=== PATIENT | male | born 1965 | race Caucasian/White ===

== ENCOUNTER → 2017-01-03 | Outpatient (CLI) | payer BC ==
[~2017-01-03] MED LIST: ASPI325T32 PO; SULF1TAB35 PO
--- OUTSIDE RECORDS SUMMARY | 2017-01-03 09:44 | XMS REPORT | Continuity of Care Document ---
Author Author [facility] Address Unknown Phone Unavailable Allergies Active Description Code Type Severity Reaction Onset Reported/Identified Relationship to Patient Clinical Status Yes vancomycin Drug Allergy 09/01/2010 Yes vancomycin Drug Allergy N/A N/A 09/01/2010 Medications Problems Date Dx Coded Attending Type Code Diagnosis Diagnosed By 07/28/2008 KLEBER HILARIO DO 682.9 CELLULITIS AND ABSCESS OF UNSPECIFIED SITES 07/28/2008 682.9 CELLULITIS AND ABSCESS OF UNSPECIFIED SITES 07/28/2008 HERBERT PABLO APRN 682.9 CELLULITIS AND ABSCESS OF UNSPECIFIED SITES 07/28/2008 KLEBER HILARIO DO 682.9 CELLULITIS AND ABSCESS OF UNSPECIFIED SITES 07/28/2008 DANIEL AMBRIZ MD 682.9 CELLULITIS AND ABSCESS OF UNSPECIFIED SITES 12/03/2008 KLEBER HILARIO DO 724.5 BACKACHE UNSPECIFIED 12/03/2008 724.5 BACKACHE UNSPECIFIED 12/03/2008 HERBERT PABLO APRN 724.5 BACKACHE UNSPECIFIED 12/03/2008 KLEBER HILARIO DO 724.5 BACKACHE UNSPECIFIED 12/03/2008 DANIEL AMBRIZ MD 724.5 BACKACHE UNSPECIFIED 09/01/2010 KLEBER HILARIO DO V58.31 WOUND DRESSING 09/01/2010 V58.31 WOUND DRESSING 09/01/2010 HERBERT PABLO APRN V58.31 WOUND DRESSING 09/01/2010 KLEBER HILARIO DO V58.31 WOUND DRESSING 09/01/2010 DANIEL AMBRIZ MD V58.31 WOUND DRESSING 01/30/2012 KLEBER HILARIO DO 719.41 SHOULDER JOINT PAIN 01/30/2012 719.41 SHOULDER JOINT PAIN 01/30/2012 HERBERT PABLO APRN 719.41 SHOULDER JOINT PAIN 01/30/2012 KLEBER HILARIO DO 719.41 SHOULDER JOINT PAIN 01/30/2012 DANIEL AMBRIZ MD 719.41 SHOULDER JOINT PAIN 09/21/2012 KLEBER HILARIO DO 782.2 Nodules - Subcutaneous 09/21/2012 782.2 Nodules - Subcutaneous 09/21/2012 HERBERT PABLO APRN 782.2 Nodules - Subcutaneous 09/21/2012 KLEBER HILARIO DO 782.2 Nodules - Subcutaneous 09/21/2012 DANIEL AMBRIZ MD 782.2 Nodules - Subcutaneous 09/22/2012 KLEBER HILARIO DO 706.2 SEBACEOUS CYST 09/22/2012 706.2 SEBACEOUS CYST 09/22/2012 HERBERT PABLO APRN 706.2 SEBACEOUS CYST 09/22/2012 KLEBER HILARIO DO 706.2 SEBACEOUS CYST 09/22/2012 DANIEL AMBRIZ MD 706.2 SEBACEOUS CYST 12/29/2012 466.0 BRONCHITIS, ACUTE 12/29/2012 786.09 DYSPNEA 12/29/2012 HERBERT PABLO APRN 466.0 BRONCHITIS, ACUTE 12/29/2012 HERBERT PABLO APRN R 786.09 DYSPNEA 12/29/2012 KLEBER HILARIO DO 466.0 BRONCHITIS, ACUTE 12/29/2012 KLEBER HILARIO DO K 786.09 DYSPNEA 12/29/2012 DANIEL AMBRIZ MD 466.0 BRONCHITIS, ACUTE 12/29/2012 DANIEL AMBRIZ MD 786.09 DYSPNEA 10/25/2013 HERBERT PABLO APRN R 380.4 CERUMEN IMPACTION 10/25/2013 KLEBER HILARIO DO 380.4 CERUMEN IMPACTION 10/25/2013 DANIEL AMBRIZ MD 380.4 CERUMEN IMPACTION 10/29/2013 KLEBER HILARIO DO 382.9 OTITIS MEDIA 10/29/2013 DANIEL AMBRIZ MD 382.9 OTITIS MEDIA 02/12/2015 DANIEL AMBRIZ MD 401.1 BENIGN ESSENTIAL HYPERTENSION Procedures Code [place] [address] EXCISION BENIGN LESION 2.1-3 cm (specify location in Medcin description) 09/22/2012 38433 CERUMEN REMOVAL 10/29/2013 30431 ROUTINE VENIPUNCTURE 02/12/2015 39536 CMP 02/12/2015 [id number] GFR CALC (RESULT ONLY) 02/12/2015 Results Encounters ACCT No. Visit Date/Time Discharge Status Pt. Type Provider Facility Loc./Unit Complaint [id number] 02/12/2015 15:27:00 02/12/2015 23: 59:59 CLS Outpatient DANIEL AMBRIZ MD [id number] 10/29/2013 11:47:00 10/29/2013 23: 59:59 CLS Outpatient KLEBER HILARIO DO [id number] 10/25/2013 12:12:00 10/25/2013 23: 59:59 CLS Outpatient HERBERT PABLO APRN [id number] 12/29/2012 12:26:00 12/29/2012 23: 59:59 CLS Outpatient [id number] 09/22/2012 12:00:00 09/22/2012 23: 59:59 CLS Outpatient KLEBER HILARIO DO
--- NOTE | 2017-01-03 10:27 | Diagnostic Imaging Report ---
Clinical indication: Patient with pain radiating down the left side of the spine. Patient has rods in the back. Exams: 1: X-ray of the thoracic spine, 3 views including swimmer's view. 2: X-ray of the lumbar spine, 3 views. Comparison: MRI of the lumbar spine performed without and with IV contrast dated 12/12/2008. Findings: Lumbar spine and thoracic spine shows no acute fracture. Posterior fusion rods are seen from T11 through the L1 vertebral body level with bilateral spanning rods and pedicle screws. There is no gross hardware complication such as hardware fracture or osteolysis. Hardware was also noted on the comparison MRI of the lumbar spine. Stable compression fracture deformity of the T12 vertebral body which is similar to the prior MRI of the lumbar spine. There is limited visualization of the upper thoracic spine due to overlapping bone and soft tissue. There are mildly hypertrophic spurs involving the mid to lower thoracic spine. The intervertebral disc heights are well-maintained. There is grade 1 anterolisthesis of L5 on S1 which has progressed in the interim. There is no definite pars defect seen on these images. Again seen small degenerative spurs anteriorly throughout the lumbar spine. There is mild degenerative sclerosis of the sacroiliac joints bilaterally with no gross erosive changes seen. Impression: 1: Thoracic and lumbar spine shows no acute fracture. 2: There is interval development of grade 1 anterolisthesis of L5 on S1. There is no gross pars defect seen. 3: T11 through L1 posterior fusion hardware is seen with no hardware complications. 4: Stable chronic T12 vertebral body compression fracture deformity. 5: Thoracic and lumbar spine degenerative disease. Dictated by: Dictated on workstation # [id number]
== END ==
LOC: RAD 09:41
PROVIDERS: ATTEND Pain Medicine Pain Medicine
DX: M54.5 Low back pain (principal)
CPT/HCPCS: 72072; 72100

== ENCOUNTER 2017-08-28 19:14 | Emergency (ER) | payer BC ==
[~2017-08-28] VITALS: Ht 165.1 cm; Wt 74.8 kg
--- OUTSIDE RECORDS SUMMARY | 2017-08-28 19:20 | XMS REPORT ---
Author Author ZEENAT GARCIA Organization [employer] Address Unknown Phone Unavailable Care Team Providers Care Quartz Cutter Name Role Phone ZEENAT GARCIA CP Unavailable Allergies, Adverse Reactions, Alerts Substance Reaction Event Type sulfa drugs Info Not Available Drug Allergy Vancomycin HCl Info Not Available Drug Allergy Problems Problem Type Condition Code Onset Dates Condition Status Problem Insomnia G47.00 Active Problem Restless legs syndrome G25.81 Active Problem Low back pain M54.5 Active Assessment Restless legs syndrome G25.81 Active Assessment Low back pain M54.5 Active Assessment Insomnia G47.00 Active Medications Medication Code System Code Instructions Start Date End Date Status Dosage Gabapentin [facility] [address]-66 300 MG Orally Once a day at night Dec 23, 2015 1 capsule Amitriptyline HCl [facility] [address]-44 25 MG Orally Once a day Dec 09, 2015 1 tablet Nabumetone [facility] [address]-96 500 MG Orally Twice a day Dec 09, 2015Dec 1 tablet Procedures Procedure Coding System Code Date Office Visit, Est Pt., Level 3 CPT-4 76747 Dec 23, 2015 Vital Signs Date/Time: Dec 23, 2015 Temperature 98.2 F Weight 174.9 lbs Height 65 in BMI 29.10 Index Blood Pressure Diastolic 86 mmHg Blood Pressure Systolic 126 mmHg Cardiac Monitoring Heart Rate 72 bpm Results No Known Results Summary Purpose [employer] Submission
--- OUTSIDE RECORDS SUMMARY | 2017-08-28 19:20 | XMS REPORT ---
Author Author ZEENAT GARCIA Organization [employer] Address Unknown Phone Unavailable Care Team Providers Care Energy Efficiency Specialist Name Role Phone ZEENAT GARCIA CP Unavailable [...] Instructions Start Date End Date Status Dosage Nabumetone [facility] [address]-00 500 MG Orally Twice a day Dec 09, 2015Dec 1 tablet Requip [facility] [address]-21 2 MG Orally Once a day atnight Dec 09, 2015 1 tablet 1 to 3 hours before bedtime Amitriptyline HCl [facility] [address]-57 25 MG Orally Once a day Dec 09, 2015 1 tablet Procedures Procedure Coding System Code Date Office Visit, New Pt., Level 4 CPT-4 42670 Dec 09, 2015 Vital Signs Date/Time: Dec 09, 2015 Temperature 98.6 F Weight 178.3 lbs Height 65 in BMI 29.67 Index Blood Pressure Diastolic 80 mmHg Blood Pressure Systolic 140 mmHg Cardiac Monitoring Heart Rate 72 bpm Results No Known Results Summary Purpose [employer] Submission
--- OUTSIDE RECORDS SUMMARY | 2017-08-28 19:20 | XMS REPORT ---
Author Author ZEENAT GARCIA Organization [employer] Address Unknown Phone Unavailable Care Team Providers Care Senior Laboratory Technician Name Role Phone ZEENAT GARCIA CP Unavailable Allergies, Adverse Reactions, Alerts Substance Reaction Event Type sulfa drugs Info Not Available Drug Allergy Vancomycin HCl Info Not Available Drug Allergy Problems Problem Type Condition Code Onset Dates Condition Status Problem Low back pain M54.5 Active Problem Insomnia G47.00 Active Problem Asthma J45.909 Active Assessment Tendonitis of elbow, right M77.8 Active Problem Restless legs syndrome G25.81 Active Assessment Tinea corporis B35.4 Active Medications Medication Code System Code Instructions Start Date End Date Status Dosage Ketoconazole [facility] [address]-48 2 % Externally twice a day to affected area May 27, 2016 1 application to affected area Naprosyn [facility] [address]-54 500 MG Orally every 12 hrs May 27, 2016 1 tablet as needed Procedures Procedure Coding System Code Date Office Visit, Est Pt., Level 3 CPT-4 15054 May 27, 2016 Vital Signs Date/Time: May 27, 2016 Cardiac Monitoring Heart Rate 86 bpm Weight 168.8 lbs Height 65 in Blood Pressure Diastolic 90 mmHg Blood Pressure Systolic 130 mmHg Results No Known Results Summary Purpose [employer] Submission
--- OUTSIDE RECORDS SUMMARY | 2017-08-28 19:20 | XMS REPORT | Continuity of Care Document ---
Author Author [facility] Address Unknown Phone Unavailable Allergies Active Description [...] 12/29/2012 786.09 DYSPNEA 12/29/2012 HERBERT PABLO APRN R 466.0 BRONCHITIS, ACUTE 12/29/2012 HERBERT PABLO APRN R 786.09 DYSPNEA 12/29/2012 KLEBER HILARIO DO 466.0 BRONCHITIS, ACUTE 12/29/2012 KLEBER HILARIO DO 786.09 DYSPNEA 12/29/2012 DANIEL AMBRIZ MD 466.0 BRONCHITIS, ACUTE 12/29/2012 DANIEL AMBRIZ MD 786.09 DYSPNEA 10/25/2013 HERBERT PABLO APRN 380.4 CERUMEN IMPACTION 10/25/2013 KLEBER HILARIO DO 380.4 CERUMEN IMPACTION 10/25/2013 DANIEL AMBRIZ MD 380.4 CERUMEN IMPACTION 10/29/2013 KLEBER HILARIO DO 382.9 OTITIS MEDIA 10/29/2013 DANIEL AMBRIZ MD 382.9 OTITIS MEDIA 02/12/2015 DANIEL AMBRIZ MD 401.1 BENIGN ESSENTIAL HYPERTENSION Procedures Code [place] [address] EXCISION BENIGN LESION 2.1-3 cm (specify location in Medcin description) 09/22/2012 11587 CERUMEN REMOVAL 10/29/2013 49374 ROUTINE VENIPUNCTURE 02/12/2015 15776 CMP 02/12/2015 [id number] GFR CALC (RESULT ONLY) 02/12/2015 Results Encounters ACCT No. Visit Date/Time Discharge Status Pt. Type Provider Facility Loc./Unit Complaint [id number] 02/12/2015 15:27:00 02/12/2015 23: 59:59 CLS Outpatient DANIEL AMBRIZ MD [id number] 10/29/2013 11:47:00 10/29/2013 23: 59:59 CLS Outpatient KLEBER HILARIO DO [id number] 10/25/2013 12:12:00 10/25/2013 23: 59:59 CLS Outpatient HERBERT PABLO APRN [id number] 12/29/2012 12:26:00 12/29/2012 23: 59:59 CLS Outpatient [id number] 09/22/2012 12:00:00 09/22/2012 23: 59:59 CLS Outpatient KLEBER HILARIO DO
[2017-08-28] MEDS ORDERED: FAMOTIDINE 20 MG (PEPCID) TABLET PO STA (19:35)
--- NOTE | 2017-08-28 19:43 | ED GI ---
General Stated Complaint: LOW BACK PAIN,BLOOD IN STOOL Source of Information: Patient, Family Exam Limitations: No Limitations History of Present Illness Time Seen By Provider: 19:34 Initial Comments Patient presents to ER by private conveyance with a chief complaint that he has had bright red blood per rectum starting this morning that was copious watery without stool. He says throughout the day started getting darker. He says he was started on diclofenac for his back pain in addition to the baclofen that his pain doctor had been prescribing him back in February of this year. Last week or so however he says he's had to use it 1 or 2 times a day which is more than what he typically takes it. He does not have a history of GERD or acid reflux. He has had no chest pain or shortness of breath. He says he has had a heart attack in the past 12 or 13 years ago and was told to take aspirin after that but has not been consistent with using aspirin. The only 2 medications he is currently prescribed is the baclofen and NSAID. He says he has no dysuria or discharge. No cough. He has a history of years ago having had broken his back and some kind of industrial accident and had to have pins placed. Since then his had his pain controlled. Much with NSAIDs and muscle relaxants. He still occasionally takes some ibuprofen in addition to his diclofenac. He has never had a colonoscopy. Patient has no family history of colon cancer or polyps but his mother had some lesions that she had to have surgery on her stomach for. She also had what sounds like ischemic colitis by his description Allergies and Home Medications Allergies Coded Allergies: Sulfa (Sulfonamide Antibiotics) (Verified Allergy, Unknown, 06/04/16) vancomycin (Unverified Allergy, Unknown, 06/04/16) wasp venom (Unverified Allergy, Unknown, 06/04/16) Home Medications No Active Prescriptions or Reported Meds Review of Systems Constitutional: No chills, No diaphoresis, No fever, No malaise EENTM: No Eye Pain, No Ear Pain Respiratory: Denies Cough, Denies Shortness of Air Cardiovascular: Denies Chest Pain, Denies Irregular Heart Rate, Denies Lightheadedness, Denies Palpitations, Denies Syncope Gastrointestinal: See HPI, Denies Constipated, Denies Nausea, Rectal Bleeding, Denies Vomiting Genitourinary: Denies Burning, Denies Discharge Musculoskeletal: see HPI, back pain, No joint pain Skin: No pruritus, No rash Psychiatric/Neurological: Denies Headache, Denies Numbness, Denies Paresthesia Endocrine: Denies Unexplained Weight Gain, Denies Unexplaned Weight Loss Hematologic/Lymphatic: Denies Easy Bleeding, Denies Easy Bruising Past Lyixfrz-Tbeqih-Suqqfk Hx Patient Social History Alcohol Use: Occasionally Uses Alcohol Beverage of Choice: Beer (12 pack last 2 weeks) Recreational Drug Use: No Type Used: Smokeless Tobacco (2-3 days per can) Recent Foreign Travel: No Contact w/Someone Who Travel: No Physical Exam Vital Signs VS - Last 72 Hours, by Label 08/28/17 19:44 Temp 98.1 Pulse 71 Resp 20 B/P (MAP) 157/104 Pulse Ox 96 Capillary Refill : General Appearance: WD/WN, mild distress (from his back pain) HEENT: PERRL/EOMI, pharynx normal Neck: non-tender, full range of motion, normal inspection Respiratory: chest non-tender, lungs clear, normal breath sounds Cardiovascular: normal peripheral pulses, regular rate, rhythm, no edema Peripheral Pulses: 2+ Radial Pulses (R), 2+ Radial Pulses (L) Gastrointestinal: normal bowel sounds, non tender, soft, no organomegaly Extremities: non-tender, normal inspection, normal capillary refill Back: normal inspection, no CVA tenderness, no vertebral tenderness Neurologic/Psychiatric: alert, oriented x 3 Skin: normal color, warm/dry Focused Exam Evaluation Lactate Level Laboratory Tests 08/28/17 20:13: Lactic Acid Level 1.63 Lactic Acid Level Laboratory Tests Test 08/28/17 20:13 Lactic Acid Level 1.63 MMOL/L (0.50-2.00) Progress/Results/Core Measures Results/Orders Lab Results Laboratory Tests Test 08/28/17 19:37 08/28/17 20:06 08/28/17 20:13 Range/Units White Blood Count 7.2 4.3-11.0 10^3/uL Red Blood Count 4.20 L 4.35-5.85 10^6/uL Hemoglobin 13.9 13.3-17.7 G/DL Hematocrit 40 40-54 % Mean Corpuscular Volume 95 80-99 FL Mean Corpuscular Hemoglobin 33 25-34 PG Mean Corpuscular Hemoglobin Concent 35 32-36 G/DL Red Cell Distribution Width 12.3 10.0-14.5 % Platelet Count 203 130-400 10^3/uL Mean Platelet Volume 10.7 H 7.4-10.4 FL Neutrophils (%) (Auto) 59 42-75 % Lymphocytes (%) (Auto) 20 12-44 % Monocytes (%) (Auto) 9 0-12 % Eosinophils (%) (Auto) 11 H 0-10 % Basophils (%) (Auto) 1 0-10 % Neutrophils # (Auto) 4.3 1.8-7.8 X 10^3 Lymphocytes # (Auto) 1.5 1.0-4.0 X 10^3 Monocytes # (Auto) 0.7 0.0-1.0 X 10^3 Eosinophils # (Auto) 0.8 H 0.0-0.3 10^3/uL Basophils # (Auto) 0.1 0.0-0.1 10^3/uL Prothrombin Time 13.9 12.2-14.7 SEC INR Comment 1.1 0.8-1.4 Activated Partial Thromboplast Time 32 24-35 SEC Sodium Level 140 135-145 MMOL/L Potassium Level 3.8 3.6-5.0 MMOL/L Chloride Level 108 H 98-107 MMOL/L Carbon Dioxide Level 20 L 21-32 MMOL/L Anion Gap 12 5-14 MMOL/L Blood Urea Nitrogen 12 7-18 MG/DL Creatinine 0.92 0.60-1.30 MG/DL Estimat Glomerular Filtration Rate > 60 BUN/Creatinine Ratio 13 Glucose Level 197 H 70-105 MG/DL Calcium Level 8.7 8.5-10.1 MG/DL Total Bilirubin 0.5 0.1-1.0 MG/DL Aspartate Amino Transf (AST/SGOT) 27 5-34 U/L Alanine Aminotransferase (ALT/SGPT) 29 0-55 U/L Alkaline Phosphatase 55 40-136 U/L Total Protein 7.0 6.4-8.2 GM/DL Albumin 4.0 3.2-4.5 GM/DL Urine Color YELLOW Urine Clarity CLEAR Urine pH 5 5-9 Urine Specific [place] 1.015 L 1.016-1.022 Urine Protein NEGATIVE NEGATIVE Urine Glucose (UA) NEGATIVE NEGATIVE Urine Ketones NEGATIVE NEGATIVE Urine Nitrite NEGATIVE NEGATIVE Urine Bilirubin NEGATIVE NEGATIVE Urine Urobilinogen NORMAL NORMAL MG/DL Urine Leukocyte Esterase NEGATIVE NEGATIVE Urine RBC (Auto) NEGATIVE NEGATIVE Urine RBC NONE /HPF Urine WBC NONE /HPF Urine Squamous Epithelial Cells RARE /HPF Urine Crystals NONE /LPF Urine Bacteria NONE /HPF Urine Casts NONE /LPF Urine Mucus NEGATIVE /LPF Urine Culture Indicated NO Lactic Acid Level 1.63 0.50-2.00 MMOL/L Urine Opiates Screen POSITIVE H NEGATIVE Urine Oxycodone Screen NEGATIVE NEGATIVE Urine Methadone Screen NEGATIVE NEGATIVE Urine Propoxyphene Screen NEGATIVE NEGATIVE Urine Barbiturates Screen NEGATIVE NEGATIVE Ur Tricyclic Antidepressants Screen NEGATIVE NEGATIVE Urine Phencyclidine Screen NEGATIVE NEGATIVE Urine Amphetamines Screen NEGATIVE NEGATIVE Urine Methamphetamines Screen NEGATIVE NEGATIVE Urine Benzodiazepines Screen POSITIVE H NEGATIVE Urine Cocaine Screen NEGATIVE NEGATIVE Urine Cannabinoids Screen NEGATIVE NEGATIVE My Orders Orders - SIMONE SANDERS Ua Culture If Indicated (08/28/17 19:20) Cbc With Automated Diff (08/28/17 19:35) Comprehensive Metabolic Panel (08/28/17 19:35) Drug Screen Stat (Urine) (08/28/17 19:35) Protime With Inr (08/28/17 19:35) Partial Thromboplastin Time (08/28/17 19:35) Type And Screen (08/28/17 19:35) Famotidine Tablet (Pepcid Tablet) (08/28/17 19:35) Saline Lock/Iv-Start (08/28/17 19:35) Fentanyl Injection (Sublimaze Injection (08/28/17 19:45) Lactic Acid Analyzer (08/28/17 20:13) Occult Blood Stool (08/28/17 20:23) Medications Given in ED Current Medications Medications Dose Ordered Sig/Tia Route Start Time Stop Time Status Last Admin Dose Admin Fentanyl Citrate 25 mcg ONCE ONCE IVP 08/28/17 19:45 08/28/17 19:46 DC 08/28/17 20:00 25 MCG Vital Signs/I&O Vital Sign - Last 12Hours 08/28/17 19:44 Temp 98.1 Pulse 71 Resp 20 B/P (MAP) 157/104 Pulse Ox 96 Progress Note : Time: 20:16 Progress Note Ischemic colitis seems very unlikely as he has a very mildly tender abdomen. Most of his pain since be centered in the back and is reproducible. Going to obtain a lactate anyways. Consults Consults : Consulting Physician: GRAYSON LANGE MD Consults Notes Discussed case and findings and lab with the surgeon and he will contact the patient tomorrow morning about setting up an endoscopy sometime this week. Departure Impression Impression: Primary Impression: BRBPR (bright red blood per rectum) Disposition: 01 HOME, SELF-CARE Condition: Stable Departure-Patient Inst. Decision time for Depature: 21:15 Referrals: KLEBER HILARIO DO (PCP) Primary Care Physician ZEENAT GARCIA (Family) Primary Care Physician Patient Instructions: Bloody Stools, Adult (DC) Add. Discharge Instructions: Expect a phone call from the general surgeon Dr. Lange at [phone] by Monday. If you have not heard from him then you may call his clinic. The next step will be endoscopy. Keep your follow-up appointment with your primary care physician to discuss the findings as well as management of your back pain. Recommend you do not use any NSAID such as echo for neck, ketorolac, Naprosyn, ibuprofen, Aleve. Tylenol is acceptable. Get a back brace and use creams such as icy hot or Biofreeze as well as massage, heat, ice. Scripts No Active Prescriptions or Reported Meds Copy Copies To 1: GRAYSON LANGE MD Copies To 2: KLEBER HILARIO TITUS J Aug 28, 2017 19:43
[2017-08-28] MEDS ORDERED: fentaNYL INJECTION 100 MCG/2 ML AMP IVP ONE (19:45)
[2017-08-28 19:50] LABS: BASOPHILS # (AUTO) 0.1 10^3/uL (0.0-0.1); BASOPHILS % (AUTO) 1 % (0-10); EOSINOPHILS # (AUTO) 0.8 10^3/uL (0.0-0.3); EOSINOPHILS % (AUTO) 11 % (0-10); LYMPHOCYTES # (AUTO) 1.5 X 10^3 (1.0-4.0); LYMPHOCYTES % (AUTO) 20 % (12-44); MEAN CORPUSCULAR HEMOGLOBIN 33 PG (25-34); MEAN CORPUSCULAR HGB CONC 35 G/DL (32-36); MEAN CORPUSCULAR VOLUME 95 FL (80-99); MEAN PLATELET VOLUME 10.7 FL (7.4-10.4); MONOCYTES # (AUTO) 0.7 X 10^3 (0.0-1.0); MONOCYTES % (AUTO) 9 % (0-12); NEUTROPHILS # (AUTO) 4.3 X 10^3 (1.8-7.8); NEUTROPHILS % (AUTO) 59 % (42-75); PLATELET COUNT 203 10^3/uL (130-400); RED CELL DISTRIBUTION WIDTH 12.3 % (10.0-14.5); WHITE BLOOD COUNT 7.2 10^3/uL (4.3-11.0)
[2017-08-28 20:03] LABS: INR 1.1 (0.8-1.4); PROTHROMBIN TIME PATIENT 13.9 SEC (12.2-14.7)
[2017-08-28 20:14] LABS: BILIRUBIN,URINE NEGATIVE (NEGATIVE); KETONES,URINE NEGATIVE (NEGATIVE); LEUKOCYTE ESTERASE ,URINE NEGATIVE (NEGATIVE); NITRITE,URINE NEGATIVE (NEGATIVE); PH,URINE 5 (5-9); PROTEIN,URINE NEGATIVE (NEGATIVE); UROBILINOGEN,URINE NORMAL (NORMAL)
[2017-08-28 20:20] LABS: ALANINE AMINOTRANSFERASE 29 U/L (0-55); ANION GAP 12 MMOL/L (5-14); ASPARTATE AMINO TRANSFERASE 27 U/L (5-34); BILIRUBIN,TOTAL 0.5 MG/DL (0.1-1.0); BLOOD UREA NITROGEN 12 MG/DL (7-18); BUN/CREATININE RATIO 13; CALCIUM 8.7 MG/DL (8.5-10.1); CARBON DIOXIDE 20 MMOL/L (21-32); CHLORIDE 108 MMOL/L (98-107); CREATININE SERUM 0.92 MG/DL (0.60-1.30); GFR ESTIMATED > 60; GLUCOSE 197 MG/DL (70-105); POTASSIUM 3.8 MMOL/L (3.6-5.0); SODIUM 140 MMOL/L (135-145)
[2017-08-28 20:22] LABS: SQUAMOUS EPITHELIAL CELL,UR RARE /HPF
[2017-08-28 21:23] VITALS: BP 142/97
== END 2017-08-28 21:23 | disposition home or self-care (01) ==
LOC: EDUNIT# 19:14 → ER 19:16
DX: K62.5 Hemorrhage of anus and rectum (principal); Z87.828 Personal history of other (healed) physical injury and trauma
CPT/HCPCS: 36415; 80053; 80306; 81000; 83605; 85025; 85610; 85730; 86850; 86900; 86901

== ENCOUNTER 2017-09-21 05:37 | Outpatient (CLI) | payer BC ==
[~2017-09-21] VITALS: Ht 165.1 cm; Wt 74.8 kg
== END 2017-09-21 13:51 ==
LOC: PREOP 05:37
PROVIDERS: ATTEND Surgery
DX: Z01.818 Encounter for other preprocedural examination (principal); K62.5 Hemorrhage of anus and rectum

== ENCOUNTER 2017-12-22 16:26 | Emergency (ER) | payer BC, OTHER ==
[~2017-12-22] VITALS: Ht 165.1 cm; Wt 74.8 kg
--- OUTSIDE RECORDS SUMMARY | 2017-12-22 16:36 | XMS REPORT | Continuity of Care Document ---
Author Author [facility] Address Unknown Phone Unavailable Allergies Active Description Code Type Severity Reaction Onset Reported/Identified Relationship to Patient Clinical Status Yes vancomycin Drug Allergy 09/01/2010 Yes vancomycin Drug Allergy N/A N/A 09/01/2010 Medications There is no data. Problems Date Dx Coded Attending Type Code [...] DO 719.41 SHOULDER JOINT PAIN 01/30/2012 DANIEL ABMRIZ MD 719.41 SHOULDER JOINT PAIN 09/21/2012 KLEBER HILARIO DO K 782.2 Nodules - Subcutaneous 09/21/2012 782.2 Nodules - Subcutaneous 09/21/2012 HERBERT PABLO APRN R 782.2 Nodules - Subcutaneous 09/21/2012 KLEBER HILARIO DO K 782.2 Nodules - Subcutaneous 09/21/2012 DANIEL AMBRIZ MD 782.2 Nodules - Subcutaneous 09/22/2012 KLEBER HILARIO DO K 706.2 SEBACEOUS CYST 09/22/2012 706.2 SEBACEOUS CYST 09/22/2012 HERBERT PABLO APRN R 706.2 SEBACEOUS CYST 09/22/2012 KLEBER HILARIO DO K 706.2 SEBACEOUS CYST 09/22/2012 DANIEL AMBRIZ MD 706.2 SEBACEOUS CYST 12/29/2012 466.0 BRONCHITIS, ACUTE 12/29/2012 786.09 DYSPNEA 12/29/2012 HERBERT PABLO APRN R 466.0 BRONCHITIS, ACUTE 12/29/2012 HERBERT PABLO APRN R 786.09 DYSPNEA 12/29/2012 KLEBER HILARIO DO K 466.0 BRONCHITIS, ACUTE 12/29/2012 KLEBER HILARIO DO [...] Procedures Code Description [place] [address] EXCISION BENIGN LESION 2.1- 3 cm (specify location in Medcin description) 09/22/2012 33140 CERUMEN REMOVAL 10/29/2013 63528 ROUTINE VENIPUNCTURE 02/12/2015 70906 CMP 02/12/2015 [id number] GFR CALC (RESULT ONLY) 02/12/2015 Results There is no data. Encounters ACCT No. Visit Date/Time Discharge Status Pt. Type Provider Facility Loc./Unit Complaint [id number] 02/12/2015 15:27:00 02/12/2015 23:59:59 CLS Outpatient DANIEL AMBRIZ MD [id number] 10/29/2013 11:47:00 10/29/2013 23:59:59 CLS Outpatient KLEBER HILARIO DO [id number] 10/25/2013 12:12:00 10/25/2013 23:59:59 CLS Outpatient HERBERT PABLO APRN [id number] 12/29/2012 12:26:00 12/29/2012 23:59:59 CLS Outpatient [id number] 09/22/2012 12:00:00 09/22/2012 23:59:59 CLS Outpatient KLEBER HILARIO DO
[2017-12-22 16:56] LABS: BASOPHILS % (AUTO) 0 % (0-10); EOSINOPHILS # (AUTO) 0.5 10^3/uL (0.0-0.3); EOSINOPHILS % (AUTO) 7 % (0-10); HEMATOCRIT 41 % (40-54); HEMOGLOBIN 14.8 G/DL (13.3-17.7); LYMPHOCYTES # (AUTO) 1.8 X 10^3 (1.0-4.0); LYMPHOCYTES % (AUTO) 26 % (12-44); MEAN CORPUSCULAR HEMOGLOBIN 34 PG (25-34); MEAN CORPUSCULAR HGB CONC 36 G/DL (32-36); MEAN CORPUSCULAR VOLUME 93 FL (80-99); MEAN PLATELET VOLUME 10.7 FL (7.4-10.4); MONOCYTES # (AUTO) 0.4 X 10^3 (0.0-1.0); MONOCYTES % (AUTO) 6 % (0-12); NEUTROPHILS # (AUTO) 4.2 X 10^3 (1.8-7.8); NEUTROPHILS % (AUTO) 61 % (42-75); PLATELET COUNT 230 10^3/uL (130-400); RED BLOOD COUNT 4.36 10^6/uL (4.35-5.85); RED CELL DISTRIBUTION WIDTH 12.3 % (10.0-14.5); WHITE BLOOD COUNT 6.8 10^3/uL (4.3-11.0)
[2017-12-22 16:59] LABS: INR 1.1 (0.8-1.4)
[2017-12-22] MEDS ORDERED: NITROGLYCERIN 0.4 MG SL TABS BTL 25'S SL PRN (17:00)
[2017-12-22] MEDS ORDERED: ASPIRIN 81 MG CHEW (CHILDREN'S ASA) PO ONE (17:00)
[2017-12-22 17:07] LABS: ALANINE AMINOTRANSFERASE 19 U/L (0-55); ALBUMIN 4.4 GM/DL (3.2-4.5); ALKALINE PHOSPHATASE 57 U/L (40-136); BILIRUBIN,TOTAL 1.1 MG/DL (0.1-1.0); BUN/CREATININE RATIO 11; CARBON DIOXIDE 24 MMOL/L (21-32); CHLORIDE 105 MMOL/L (98-107); CREATININE SERUM 0.92 MG/DL (0.60-1.30); GFR ESTIMATED > 60; GLUCOSE 158 MG/DL (70-105); MAGNESIUM 2.1 MG/DL (1.8-2.4); POTASSIUM 3.6 MMOL/L (3.6-5.0); SODIUM 140 MMOL/L (135-145); TOTAL PROTEIN 7.5 GM/DL (6.4-8.2)
[2017-12-22 17:14] LABS: MYOGLOBIN SERUM 43.1 NG/ML (10.0-92.0)
--- NOTE | 2017-12-22 17:15 | Diagnostic Imaging Report ---
INDICATION: Chest pain and left upper extremity paresthesia. EXAMINATION: Portable AP upright view of the chest was obtained. COMPARISON: No previous study is available for comparison at this time. FINDINGS: Heart size and pulmonary vasculature are within normal limits, and the lungs are clear, bilaterally. IMPRESSION: Unremarkable chest. Dictated by: Dictated on workstation # [id number]
--- NOTE | 2017-12-22 17:57 | Diagnostic Imaging Report ---
PROCEDURE: CT head and CT cervical spine without contrast. TECHNIQUE: Multiple contiguous axial images were obtained through the brain and cervical spine without the use of intravenous contrast. Sagittal and coronal reformations through the cervical spine were then performed. INDICATION: CT HEAD: Multiple contiguous axial CT images of the head were obtained. FINDINGS: Ventricles and sulci are within normal limits for size. There is no intracranial hemorrhage identified. There is no abnormal mass effect or shift of midline structures. IMPRESSION: Unremarkable CT of the head. CT CERVICAL SPINE: Multiple contiguous axial CT images of the cervical spine were obtained with sagittal and coronal reformatted images produced. FINDINGS: The cervical curvature and alignment are within normal limits. The vertebral body heights and disc spaces are maintained without evidence of fracture or subluxation. There is no paraspinous hematoma. Endplate spurring is most pronounced at C5-6 and C6-7 with mild to moderate bony encroachment upon the spinal canal. IMPRESSION: No CT evidence of acute cervical spinal abnormality. Dictated by: Dictated on workstation # [id number]
--- NOTE | 2017-12-22 18:20 | ED Chest Pain ---
General Chief Complaint: Chest Pain Stated Complaint: CP/L ARM NUMBNESS Nursing Triage Note: PATIENT STATES THAT HE STARTED HAVING PAIN IN HIS CHEST AND DOWN HIS LEFT ARM YESTERDAY EVENING. IT FEELS LIKE "NEEDLES" IN HIS ARM. AND LIKE HE WAS "PUNCHED " IN THE CHEST. hE STATES HIS ARM FEELS HEAVY. Nursing Sepsis Screen: No Definite Risk Source: patient Exam Limitations: no limitations (CHAD CHOU MD) History of Present Illness Date Seen by Provider: Dec 22, 2017 Time Seen by Provider: 16:40 Initial Comments This 52-year-old gentleman presents to the emergency room with complaints of left sided chest pain and pain and paresthesia in the left upper extremity. Symptoms started yesterday when he was at work. Symptoms seem to be worse with activity. He describes the pain in his chest as a soreness as though he were punched in the chest. 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 Those did resolve. He took ibuprofen which was not particularly helpful. Patient has some chronic back pain and sometimes stumbles because of prior trauma. He fell 15 feet and struck his back on a ladder and required surgery for vertebral fractures. He does have hardware in his back. Patient has no known history of coronary artery disease. He does have hypertension. He reports pain at its worst was 8/10. It is now about 2/10. Patient reports he has a remote history of "heart attack" when he had heatstroke in the [place], [place] in 2001. (CHAD CHOU MD) Allergies and Home Medications Allergies Coded Allergies: Sulfa (Sulfonamide Antibiotics) (Verified Allergy, Unknown, 06/04/16) vancomycin (Unverified Allergy, Unknown, 06/04/16) venom-wasp (Unverified Allergy, Unknown, 06/04/16) Home Medications Prednisone 20 Mg Tab, 20 MG PO DAILY, #4 Prescribed by: CHAD AMYER on 12/22/17 3462 Review of Systems Constitutional: no symptoms reported EENTM: No Symptoms Reported Respiratory: No Symptoms Reported Cardiovascular: See HPI Gastrointestinal: No Symptoms Reported Genitourinary: No Symptoms Reported Musculoskeletal: see HPI Skin: no symptoms reported Psychiatric/Neurological: See HPI Endocrine: No Symptoms Reported (CHAD CHOU MD) Past Ujoxlpg-Tscbwp-Uxyzpa Hx Patient Social History Alcohol Use: Rarely Uses Alcohol Beverage of Choice: Beer Recreational Drug Use: No Smoking Status: Former Smoker Type Used: Smokeless Tobacco 2nd Hand Smoke Exposure: No Recent Foreign Travel: No Contact w/Someone Who Travel: No Recent Infectious Disease Expo: No Recent Hopitalizations: No (CHAD CHOU MD) Seasonal Allergies Seasonal Allergies: No (CHAD CHOU MD) Surgeries History of Surgeries: Yes Surgeries: Ear Surgery, Orthopedic (back surgery with hardware due to trauma) (CHAD CHOU MD) Respiratory History of Respiratory Disorde: Yes Respiratory Disorders: Asthma, Chronic Bronchitis (CHAD CHOU MD) Cardiovascular History of Cardiac Disorders: Yes Cardiac Disorders: Heart Attack (states "heart attack" during heatst2001) , Hypertension (CHAD CHOU MD) Neurological History of Neurological Disord: No (CHAD CHOU MD) Reproductive System Hx Reproductive Disorders: No (CHAD CHOU MD) Genitourinary History of Genitourinary Disor: No (CHAD CHOU MD) Gastrointestinal History of Gastrointestinal Di: No (CHAD CHOU MD) Musculoskeletal History of Musculoskeletal Dis: Yes Musculoskeletal Disorders: Chronic Back Pain (CHAD CHOU MD) Endocrine History of Endocrine Disorders: No (CHAD CHOU MD) HEENT History of HEENT Disorders: No (CHAD CHOU MD) Cancer History of Cancer: No (CHAD CHOU MD) Psychosocial History of Psychiatric Problem: No (CHAD CHOU MD) Integumentary History of Skin or Integumenta: No (CHAD CHOU MD) Blood Transfusions History of Blood Disorders: No (CHAD CHOU MD) Family Medical History Significant Family History: Cancer, Diabetes, Hypertension (CHAD CHOU MD) Physical Exam Vital Signs Vital Sign - Last 12Hours 12/22/17 12/22/17 16:33 16:35 Temp 98.2 Pulse 81 Resp 20 B/P (MAP) 163/107 (125) Pulse Ox 97 O2 Delivery Room Air O2 Flow Rate 2.0 (SIMONE BAHENA) Vital Signs Capillary Refill : Less Than 3 Seconds (CHAD CHOU MD) General Appearance: No Apparent Distress, WD/WN HEENT: PERRL/EOMI, Normal ENT Inspection, Pharynx Normal Neck: Normal Inspection Respiratory: Chest Non Tender, Lungs Clear, Normal Breath Sounds, No Accessory Muscle Use, No Respiratory Distress Cardiovascular: Regular Rate, Rhythm, No Edema, No Murmur, Normal Peripheral Pulses Gastrointestinal: Normal Bowel Sounds, Non Tender, Soft Extremity: Normal Capillary Refill, Normal Inspection, Non Tender, No Pedal Edema Neurologic/Psychiatric: Alert, Oriented x3, Normal 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, 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0-14.5 % Platelet Count 230 130-400 10^3/uL Mean Platelet Volume 10.7 H 7.4-10.4 FL Neutrophils (%) (Auto) 61 42-75 % Lymphocytes (%) (Auto) 26 12-44 % Monocytes (%) (Auto) 6 0-12 % Eosinophils (%) (Auto) 7 0-10 % Basophils (%) (Auto) 0 0-10 % Neutrophils # (Auto) 4.2 1.8-7.8 X 10^3 Lymphocytes # (Auto) 1.8 1.0-4.0 X 10^3 Monocytes # (Auto) 0.4 0.0-1.0 X 10^3 Eosinophils # (Auto) 0.5 H 0.0-0.3 10^3/uL Basophils # (Auto) 0.0 0.0-0.1 10^3/uL Prothrombin Time 14.0 12.2-14.7 SEC INR Comment 1.1 0.8-1.4 Activated Partial Thromboplast Time 33 24-35 SEC Sodium Level 140 135-145 MMOL/L Potassium Level 3.6 3.6-5.0 MMOL/L Chloride Level 105 98-107 MMOL/L Carbon Dioxide Level 24 21-32 MMOL/L Anion Gap 11 5-14 MMOL/L Blood Urea Nitrogen 10 7-18 MG/DL Creatinine 0.92 0.60-1.30 MG/DL Estimat Glomerular Filtration Rate > 60 BUN/Creatinine Ratio 11 Glucose Level 158 H 70-105 MG/DL Calcium Level 9.0 8.5-10.1 MG/DL Magnesium Level 2.1 1.8-2.4 MG/DL Total Bilirubin 1.1 H 0.1-1.0 MG/DL Aspartate Amino Transf (AST/SGOT) 23 5-34 U/L Alanine Aminotransferase (ALT/SGPT) 19 0-55 U/L Alkaline Phosphatase 57 40-136 U/L Myoglobin 43.1 10.0-92.0 NG/ML Troponin I < 0.30 < 0.30 <0.30 NG/ML Total Protein 7.5 6.4-8.2 GM/DL Albumin 4.4 3.2-4.5 GM/DL (SIMONE BAHENA) Medications Given in ED Current Medications Medications Dose Ordered Sig/Tia Route Start Time Stop Time Status Last Admin Dose Admin Aspirin 324 mg ONCE ONCE PO 12/22/17 17:00 12/22/17 17:01 DC 12/22/17 16:56 324 MG Ketorolac Tromethamine 30 mg ONCE ONCE IVP 12/22/17 18:30 12/22/17 18:31 DC 12/22/17 18:38 30 MG Nitroglycerin 0.4 mg UD PRN SL 12/22/17 17:00 12/22/17 16:58 0.4 MG (SIMONE BAHENA) Vital Signs/I&O Vital Sign - Last 12Hours 12/22/17 12/22/17 12/22/17 16:33 16:35 17:00 Temp 98.2 Pulse 81 Resp 20 B/P (MAP) 163/107 (125) Pulse Ox 97 100 O2 Delivery Room Air Nasal Cannula Nasal Cannula O2 Flow Rate 2.0 2.00 (SIMONE BAHENA) Blood Pressure Mean: 125 Progress Note : Time: 18:39 Progress Note Patient was given aspirin. Cardiac workup is negative to this point. CT of the head and C-spine was ordered to further investigate the radicular symptoms in the left upper extremity. These imaging studies showed some spurring with encroachment. This could be contributing to the left upper extremity symptoms and possibly even the left lateral chest pain. Patient is being given Toradol. If this is ineffective, I suggested Dr. Bahena try gabapentin. Disposition was discussed with the patient who is reluctant to be admitted. Case was reviewed with Dr. Mckenzie requested that the patient at least stay for a 3 hour rule out. Patient is agreeable and a troponin and EKG were ordered for 19:40. Care of the patient is being transferred to Dr. Bahena at this time. (CHAD CHOU MD) Progress Note : Time: 18:39 Progress Note Discussed the case at length with Dr. Mayer. We discussed the likely etiology being a radiculopathy given his CT imaging. His pain is now about a 2 out of 10 red give him some NSAIDs and see if it doesn't improve and repeat a delta T at 1940. He has outpatient follow-up with Dr. Mckenzie, cardiology. (SIMONE BAHENA) ECG Initial ECG Impression Date: Dec 22, 2017 Initial ECG Impression Time: 16:50 Initial ECG Rate: 74 Initial ECG Rhythm: Normal Sinus Initial ECG Intervals: Normal Initial ECG Impression: Normal Comment Normal sinus rhythm with no ST elevation or depression. No abnormal intervals or axis deviation. (CHAD CHOU MD) EKG : EKG Time: 20:43 Rate: 49 Rhythm: S.Yariel Intervals: MT (176) ECG Comparisson: Changed (yariel) ECG Impression: Sinus Bradycardia Comment No T-wave elevation or depression noted. (SIMONE BAHENA) Diagnostic Imaging Diagonstic Imaging: Xray Plain Films/CT/US/NM/MRI: chest Comments CT head and cervical spine viewed by me and report reviewed. See report below: NAME: GERARDO KLEIN REC#: [id number] PT STATUS: REG ER : 1965 PHYSICIAN: CHAD CHOU MD ADMIT DATE: 12/22/17/ER Signed Date of Exam: 12/22/17 CT HEAD/CERVICAL SPINE WO PROCEDURE: CT head and CT cervical spine without contrast. TECHNIQUE: Multiple contiguous axial images were obtained through the brain and cervical spine without the use of intravenous contrast. Sagittal and coronal reformations through the cervical spine were then performed. INDICATION: CT HEAD: Multiple contiguous axial CT images of the head were obtained. FINDINGS: Ventricles and sulci are within normal limits for size. There is no intracranial hemorrhage identified. There is no abnormal mass effect or shift of midline structures. IMPRESSION: Unremarkable CT of the head. CT CERVICAL SPINE: Multiple contiguous axial CT images of the cervical spine were obtained with sagittal and coronal reformatted images produced. FINDINGS: The cervical curvature and alignment are within normal limits. The vertebral body heights and disc spaces are maintained without evidence of fracture or subluxation. There is no paraspinous hematoma. Endplate spurring is most pronounced at C5-6 and C6-7 with mild to moderate bony encroachment upon the spinal canal. IMPRESSION: No CT evidence of acute cervical spinal abnormality. Dictated by: Dictated on workstation # [id number] Dict: 12/22/17 1749 Trans: 12/22/17 1800 Interpreted by: SAVI MENSAH MD Electronically signed by: SAVI MENSAH MD 12/22/17 1800 Diagonstic Imaging: Xray Plain Films/CT/US/NM/MRI: chest Comments Chest x-ray viewed by me and report reviewed. See report below: NAME: GERARDO KLEIN [facility] REC#: [id number] PT STATUS: REG ER : 1965 PHYSICIAN: CHAD CHOU MD ADMIT DATE: 12/22/17/ER Signed Date of Exam: 12/22/17 CHEST 1 VIEW, AP/PA ONLY INDICATION: Chest pain and left upper extremity paresthesia. EXAMINATION: Portable AP upright view of the chest was obtained. COMPARISON: No previous study is available for comparison at this time. FINDINGS: Heart size and pulmonary vasculature are within normal limits, and the lungs are clear, bilaterally. IMPRESSION: Unremarkable chest. Dictated by: Dictated on workstation # [id number] Dict: 12/22/171712 Trans: 12/22/171751 Interpreted by: SAVI MENSAH MD Electronically signed by: SAVI MENSAH MD 12/22/171751 (CHAD CHOU MD) Diagonstic Imaging: Xray (SIMONE BAHENA) Transfer of Care Transfer of Care Time: 18:39 Care transferred to: Josef (SIMONE BAHENA) Departure Impression Impression: Primary Impression: Cervical radiculopathy Additional Impressions: Paresthesia of left upper extremity Left sided chest pain Disposition: HOME, SELF-CARE Condition: Improved Departure-Patient Inst. Decision time for Depature: 21:33 (SIMONE BAHENA) Referrals: KLEBER HILARIO DO (PCP) Primary Care Physician BALBINA MOSES (Family) Primary Care Physician Anne Marie MCKENZIE MD Patient Instructions: Chest Pain, Radiculopathy Add. Discharge Instructions: Take aspirin 81 mg daily. Follow-up with Dr. Mckenzie as soon as possible, preferably next week. Call on Monday morning for an appointment. Cardiovascular causes of chest pain cannot be completely ruled out in the emergency room. For this reason, please return to the emergency room if symptoms worsen. All discharge instructions reviewed with patient and/or family. Voiced understanding. Scripts Prednisone (Prednisone) 20 Mg Tab 20 MG PO DAILY, #4 TAB Prov: CHAD CHOU MD 12/22/17 Copy Copies To 1: Anne Marie MCKENZIE MD Copies To 2: KLEBER HILARIO JOSHUA T MD Dec 22, 2017 18:20 SIMONE BAHENA Dec 22, 2017 18:39
[2017-12-22] MEDS ORDERED: KETOROLAC 30 MG/ML VIAL IVP ONE (18:30)
[2017-12-22] MEDS ORDERED: PRD20T PO (18:57)
[2017-12-22 21:42] VITALS: BP 129/94
== END 2017-12-22 21:42 | disposition home or self-care (01) ==
LOC: EDUNIT# 16:26 → ER 16:29
DX: M54.12 Radiculopathy, cervical region (principal); R20.2 Paresthesia of skin; R07.89 Other chest pain; J45.909 Unspecified asthma, uncomplicated; I10 Essential (primary) hypertension; I25.2 Old myocardial infarction; Z88.2 Allergy status to sulfonamides; Z88.1 Allergy status to other antibiotic agents; Z91.038 Other insect allergy status; Z79.52 Long term (current) use of systemic steroids; Z87.891 Personal history of nicotine dependence
CPT/HCPCS: 36415; 70450; 71045; 72125; 80053; 83735; 83874; 84484; 85025; 85610; 85730; 93041; 96374

== ENCOUNTER → 2018-01-19 | Outpatient (CLI) | payer OTHER ==
[~2018-01-19] MED LIST changes: +PRD20T PO
== END ==
LOC: CARD 12:55
PROVIDERS: ATTEND Internal Medicine Interventional Cardiology
DX: R07.9 Chest pain, unspecified (principal); I10 Essential (primary) hypertension; Z72.0 Tobacco use
CPT/HCPCS: 93306

== ENCOUNTER → 2018-02-01 | Outpatient (CLI) | payer SELFPAY ==
[~2018-02-01] VITALS: Ht 165.1 cm; Wt 76.7 kg
[~2018-02-01] MED LIST changes: +REGADENOSON 0.4 MG/5 ML SYR (LEXISCAN) IV ONE
[2018-02-01] MEDS: CATHETER FLUSH 10 ML SYR IV PRN ×2 (07:50→09:19)
[2018-02-01 09:17] VITALS: BP 130/67
== END ==
LOC: CARD 07:32
PROVIDERS: ATTEND Internal Medicine Interventional Cardiology
DX: R07.9 Chest pain, unspecified (principal); I10 Essential (primary) hypertension; Z72.0 Tobacco use
CPT/HCPCS: 78452; 93017

== ENCOUNTER 2018-02-26 11:55 | Day surgery (SDC) | payer OTHER ==
[2018-02-26] VITALS (10 sets, daily range): BP systolic 110–132; BP diastolic 61–80
[~2018-02-26] VITALS: Ht 165.1 cm; Wt 78.9 kg
[~2018-02-26 11:55] MED LIST changes: +ASPI-983 PO; +ATOR80TA76 PO; +LISI10TA2 PO; -REGADENOSON 0.4 MG/5 ML SYR (LEXISCAN) IV ONE; +TICA90TA PO
[2018-02-26] MEDS ORDERED: NS IV 1000 ML 1,000 ML ONE (12:10)
[2018-02-26] MEDS ORDERED: HEParin (CATH LAB) 2,000 ML IV ONE (12:10)
[2018-02-26] MEDS ORDERED: NS IV 1000 ML 1,000 ML IV SCH ×2 (12:22→14:12)
[2018-02-26 12:45] LABS: HEMOGLOBIN 14.8 G/DL (13.3-17.7); MEAN PLATELET VOLUME 10.3 FL (7.4-10.4); RED BLOOD COUNT 4.43 10^6/uL (4.35-5.85); RED CELL DISTRIBUTION WIDTH 12.4 % (10.0-14.5)
[2018-02-26] MEDS ORDERED: METO-387 PO (12:54)
[2018-02-26] MEDS ORDERED: VERAPAMIL 5 MG/2 ML (CALAN) VIAL IV ONE (13:10)
[2018-02-26] MEDS ORDERED: fentaNYL INJECTION 100 MCG/2 ML AMP ONE (13:10)
[2018-02-26] MEDS ORDERED: HEParin 1000 UNIT/ML (10ML VIAL) FOR BOLUS ONE (13:10)
[2018-02-26] MEDS ORDERED: NITRO DRIP 25000 MCG/D5W 250 ML IV ONE (13:10)
[2018-02-26] MEDS ORDERED: MIDAZOLAM 5 MG/5 ML (VERSED) VIAL ONE (13:10)
[2018-02-26 13:11] LABS: INR 1.2 (0.8-1.4); PROTHROMBIN TIME PATIENT 14.9 SEC (12.2-14.7)
[2018-02-26 13:13] LABS: ALANINE AMINOTRANSFERASE 47 U/L (0-55); ALBUMIN 4.4 GM/DL (3.2-4.5); ALKALINE PHOSPHATASE 63 U/L (40-136); BILIRUBIN,TOTAL 1.1 MG/DL (0.1-1.0); BUN/CREATININE RATIO 17; CALCIUM 9.1 MG/DL (8.5-10.1); CARBON DIOXIDE 23 MMOL/L (21-32); CHLORIDE 109 MMOL/L (98-107); CREATININE SERUM 0.82 MG/DL (0.60-1.30); GFR ESTIMATED > 60; GLUCOSE 94 MG/DL (70-105); POTASSIUM 4.2 MMOL/L (3.6-5.0); SODIUM 141 MMOL/L (135-145); TOTAL PROTEIN 6.9 GM/DL (6.4-8.2)
[2018-02-26] MEDS ORDERED: LIDOCAINE 1% INJ 50 ML (XYLOCAINE) VIAL ONE (13:20)
--- NOTE | 2018-02-26 13:33 | Cardiac Procedure Note-CS/ASA ---
Pre-Procedure Note Pre-Op Procedure Note H&P Reviewed The H&P was reviewed, patient examined and no changes noted. Date H&P Reviewed: Feb 26, 2018 Time H&P Reviewed: 13:33 Conscious Sedation Pre-Proced Time Reviewed: 13:33 ASA Class: 3 Airway Mallampati Classification: ([place] appropriate class) I. II. III, IV Lungs Heart ASA score ASA 1: a normal healthy patient ASA 2: a patient with a mild systemic disease (mid diabetes, controlled hypertension, obesity ASA 3: a patient with a severe systemic disease that limits activity (angina , COPD, prior Myocardial infarction) ASA 4: a patient with an incapacitating disease that is a constant threat to life (CHF, renal failure) ASA 5: a moribund patient not expected to survive 24 hrs. (ruptured aneurysm) ASA 6: a declared brain patient whose organs are being harvested. For emergent operations, add the letter E after the classification Grade 1 Sedation Plan: Analgesia, Amnesia, Plan communicated to team members, Discussed options with patient/fam, Discussed risks with patient/fam Note The patient is an appropriate candidate to undergo the planned procedure, sedation, and anesthesia. The patient immediately re-assessed prior to indication. Anne Marie VIRK MD Feb 26, 2018 1:33 pm
--- NOTE | 2018-02-26 14:12 | Coronary Angiography Report ---
Coronary Angiography Report DATE OF PROCEDURE: 02/26/18 INDICATION: recurrent chest pain, recent PCI to the LAD. PREOPERATIVE DIAGNOSIS: recurrent chest pain, recent PCI to the LAD. POSTOPERATIVE DIAGNOSIS: patent LAD stent. No obstructive CAD noted. HISTORY: this is a 52-year-old gentleman who complained of recurrent chest pain and had an abnormal stress test. Angiogram showed severe LAD stenosis which was treated with PCI with drug-eluting stent. He presented to the office for follow-up visit and complained of recurrent typical chest pain.Therefore, the patient was scheduled for coronary angiography. PROCEDURES PERFORMED: 1.Coronary angiography. 2.Left heart catheterization. 3. Aortic arch angiography. COMPLICATIONS: None. SPECIMENS: None. ESTIMATED BLOOD LOSS: 10 mL ANESTHESIA: Conscious sedation ANTICOAGULATION: IV heparin CONTRAST: contrast 62 mL. FLUOROSCOPY: 4.9 minutes. FLOUROSCOPY DOSE: 414 mgy. PROCEDURE DETAILS: The patient is a 52 male and was brought to the laboratory sample carrier after informed consent was taken. All the risks and complications were explained in detail; this included the risk of bleeding, vascular damage, stroke , ND and even . The patient was draped and prepped in the usual sterile fashion. Access was gained in the right radial artery with a 6 Latvian sheath. Coronary angiography and left heart catheterization was performed with the Bison catheter. aortic arch angiography was performed with the Bison catheter. FINDINGS: 1.Left main: patent. 2.LAD: patent proximal LAD stent. Mild mid disease noted. Transapical vessel. 3.Left circumflex artery: patent. 4.RCA: mild luminal irregularities. 5.Left heart catheterization: aortic pressure 90/60 mmHg. LV pressure 94/6 mmHg. LVEDP 19 mmHg. Normal LV function with no wall motion on the mattress. There is no gradient across the otic canal. 6. Aortic arch angiography: No evidence of aneurysm or dissection. Normal proximal segments of the great arteries including the brachiocephalic artery, left common carotid artery and left subclavian artery. CONCLUSIONS: Patent LAD stent with no obstructive CAD. Elevated LVEDP suggesting diastolic dysfunction. Meir Mckenzie MD, FACP, FACC, [facility] Interventional Cardiology Anne Marie MCKENZIE MD Feb 26, 2018 2:12 pm
--- NOTE | 2018-02-26 14:14 | Discharge Inst-Post CATH ---
Discharge Inst-CATH Post Cardiac Cath D/C Inst Follow Up/Plan Dr. Mckenzie in 3-4 weeks. CARDIAC CATH DISCHARGE INSTRUCTIONS *Hold Metformin for 48 hours post heart cath. ACTIVITY * Go Home directly and rest. * Limit activity of the leg (or wrist if it was used) for 7 days including aerobics, swimming, jogging, bicycling, etc. * Restrict stair-climbing for 7 days if possible, if not, climb up with your non -cath leg, then bring together on the same step. * Avoid lifting, pushing, pulling or excessive movement of the affected extremity for 7 days. * Customary sexual activity may be resumed after 2 days-use caution not to use a position that strains or causes pain to the affected extremity. * No driving for 24 hours. * NO SMOKING. * Avoid straining for bowel movements for 7 days. * Gentle walking on level ground is allowed. * Returning to work will depend on the type of procedure and the results. Your doctor will discuss this with you. CALL YOUR DOCTOR FOR ANY OF THE FOLLOWING: *If bleeding from the puncture site occurs- Apply gentle pressure to site with clean cloth and call your doctor or EMS. * If a knot or lump forms under the skin, increases in size, or causes pain. * If bruising appears to be worsening or moving further down your leg instead of disappearing. * Temperature above 101 F. CARE OF YOUR GROIN INCISION; * Bruising or purple discoloration of the skin near the puncture site is common. * You may shower only, no bathtub bathing for 5 days. Be careful to avoid slipping as your leg may feel stiff. * If a closure device was used on your femoral artery, please see the attached guide regarding care of the device and your leg. * REMOVE the dressing from your groin the next day after your procedure in the shower. CARE OF YOUR WRIST INCISION; * Bruising or purple discoloration of the skin near the puncture site is common. * You may shower. * DO NOT submerge wrist. * Remove dressing in 24 hours. Anne Marie MCKENZIE MD Feb 26, 2018 2:14 pm
[2018-02-26] MEDS ORDERED: PATIENT MAY USE OWN MEDS, ALL PO SCH (14:15)
--- NOTE | 2018-02-26 14:17 | Cardiology Discharge Summary ---
Diagnosis/Chief Complaint Date of Admission 02/26/2018 Date of Discharge 02/26/2018 Admission Diagnosis recurrent chest pain, recent PCI to the LAD. Abnormal EKG Final/Discharge Diagnosis patent LAD stent. No obstructive coronary disease. Mild diastolic dysfunction. Chief Complaint/HPI Chief Complaint/HPI this is a 52-year-old gentleman with recurrent chest pain, abnormal nuclear stress test and recent previous angiogram which showed severe LAD disease treated with PCI to the LAD. He presented for follow-up and complained of recurrent chest pain with abnormal EKG. coronary angiography was recommended. Discharge Summary Procedures coronary angiography showed patent LAD stent with no obstructive CAD. Mild diastolic dysfunction is noted. Discharge Physical Examination normal cardiovascular and respiratory examination. Hospital Course unremarkable Pending Labs Laboratory Tests 02/26/18 12:41: White Blood Count 7.0, Red Blood Count 4.43, Hemoglobin 14.8, Hematocrit 42, Mean Corpuscular Volume 94, Mean Corpuscular Hemoglobin 33, Mean Corpuscular Hemoglobin Concent 36, Red Cell Distribution Width 12.4, Platelet Count 260, Mean Platelet Volume 10.3, Prothrombin Time 14.9, INR Comment 1.2, Activated Partial Thromboplast Time 30, Sodium Level 141, Potassium Level 4.2, Chloride Level 109, Carbon Dioxide Level 23, Anion Gap 9, Blood Urea Nitrogen 14, Creatinine 0.82, Estimat Glomerular Filtration Rate > 60, BUN/Creatinine Ratio 17, Glucose Level 94, Calcium Level 9.1, Total Bilirubin 1.1, Aspartate Amino Transf (AST/SGOT) 31, Alanine Aminotransferase (ALT/SGPT) 47, Alkaline Phosphatase 63, Total Protein 6.9, Albumin 4.4 Discussion & Recommendations Discussion discharge instructions discussed with the patient and family. Patient will continue dual antiplatelet therapy for at least 1 year after the index procedure. Follow-up in 2-4 weeks. Follow up appt.: Follow-up with Dr. Mckenzie in 3-4 weeks. Dicharge Diet: Cardiac Diet Activity as Tolerated: Yes Home Medications Reviewed patient Home Medication Reconciliation performed by pharmacy medication reconciliations deburring technician and/or nursing. Patients Allergies have been reviewed. Discharge Home Medications: Reviewed and agree with Discharge Medication list on patient's Discharge Instruction sheet Condition at discharge stable. Instructions to patient/family Dr. Mckenzie in 3-4 weeks. Anne Marie MCKENZIE MD Feb 26, 2018 2:17 pm
== END 2018-02-26 16:45 | disposition home or self-care (01) ==
LOC: CATH 11:55 → SURG 14:27 → CATH 16:45
PROVIDERS: ATTEND Internal Medicine Interventional Cardiology
DX: R07.9 Chest pain, unspecified (principal); Z88.1 Allergy status to other antibiotic agents; Z88.2 Allergy status to sulfonamides; E78.5 Hyperlipidemia, unspecified; I10 Essential (primary) hypertension; Z79.82 Long term (current) use of aspirin; Z79.899 Other long term (current) drug therapy; F17.220 Nicotine dependence, chewing tobacco, uncomplicated
CPT/HCPCS: 36221; 36415; 80053; 85027; 85610; 85730; 87081; 93458

== ENCOUNTER 2018-05-13 13:41 | Emergency (ER) | payer OTHER ==
[~2018-05-13] VITALS: Ht 165.1 cm; Wt 79.4 kg
[~2018-05-13 13:41] MED LIST changes: +METO-387 PO
--- OUTSIDE RECORDS SUMMARY | 2018-05-13 13:47 | XMS REPORT ---
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[place] coronary artery of [place] heart without angina pectoris I25.10 Active 3445094763959 Problem Asthma J45.909 Active 753602459 Problem Low back pain M54.5 Active 325732567 Problem Insomnia G47.00 Active 079787739 Problem Restless legs syndrome G25.81 Active 324308374 ALLERGIES Substance Reaction Event Type Date Status sulfa drugs Unknown Drug Allergy Nov, Active Vancomycin HCl Unknown Drug Allergy Nov, Active ENCOUNTERS Encounter Location Date Diagnosis [facility] [id number] [place] [address] 07724- 2179 March, SOB (shortness of breath) R06.02 [facility] [id number] [place] [address] 84548- 3472 Feb, SOB (shortness of breath) R06.02 ; Wheezing R06.2 ; Asthma J45.909 and Coronary artery disease involving akhi[place] coronary artery of akhi[place] heart without angina pectoris I25.10 [facility] [id number] [place] [address] 90885- 4573 Jan, Coronary artery disease involving akhi[place] coronary artery of akhiok heart without angina pectoris I25.10 [facility] [id number] [place] [address] 64724- 2021 Dec, Bronchitis J40 [facility] [id number] [place] [address] 77957 -0572 14 Dec, 2017 Olecranon bursitis of left elbow M70.22 [facility] [place] [id number] [place] [address] 55238 -6609 Nov, Mild asthma with acute exacerbation, unspecified whether persistent J45.901 and Pharyngitis, unspecified etiology J02.9 [place] [id number] [place] [address] 85624- 1120 May, Gastroenteritis K52.9 [facility] [place] [id number] [place] [address] 58217 -0976 Feb, [place] [id number] [place] [address] 75164- 6436 Jan, Flu-like symptoms R68.89 ; Acute upper respiratory infection , unspecified J06.9 and Other viral agents as the cause of diseases classified elsewhere B97.89 [facility] [place] [id number] [place] [address] 90777 -3750 May, Tinea corporis B35.4 and Tendonitis of elbow, right M77.8 [facility] [place] [id number] [place] [address] 38680 -9663 March, Gastroenteritis K52.9 [facility] [place] [id number] [place] [address] 36333 -7722 12 Jan, 2016 Acute pharyngitis J02.9 and Acute streptococcal pharyngitis J02.0 [place] [id number] [place] [address] 94760- 7117 Jan, Flu-like symptoms R68.89 and Asthma J45.909 [place] [id number] [place] [address] 15759- 5912 Dec, Low back pain M54.5 ; Insomnia G47.00 and Restless legs syndrome G25.81 [place] [id number] [place] [address] 00256- 9229 Nov, Low back pain M54.5 ; Insomnia G47.00 and Restless legs syndrome G25.81 [facility] [address] [facility] [id number] [place] [address] 14 Feb, 2015 [facility] [address] [facility] [id number] [place] [address] 0432 Feb, [facility] [address] [facility] [id number] [place] [address]- 1387 Jan, [facility] [address] [facility] [id number] [place] [address]- 8592 Jan, [facility] [address] [facility] [id number] [place] [address]- 9640 Oct, [facility] [address] [facility] [id number] [place] [address]- 3487 Oct, [facility] [id number] [place] [address] 6816 Oct, [facility] [address] [id number] [address] 0469 Oct, [facility] [id number] [place] [address] 2044 Dec, [facility] [address] [id number] [address] 9682 Sep, [facility] [address] [address] 4[address] Sep, [facility] [place] [facility] [address] [facility] [id number], [place] [address] 3371 Sep, [facility] [place] [facility] [address] [facility] [id number], [place] [address]- 0163 Sep, [facility] [address] [facility] [id number][place] [address] 7870 Sep, [facility] [place] [facility] [address] [address] 1528 Sep, [facility] [address] [facility] [id number] [place] [address]- 2524 Jan, [facility] [address] [facility] [id number][place] [address] 3617 Jan, [facility] [address] [facility] [id number], [place] [address]- 4015 Aug, [facility] [address] [facility] [id number], [place] [address] 0384 Aug, [facility] [address] [facility] [id number], [place] [address] 2119 Aug, IMMUNIZATIONS No Known Immunizations SOCIAL HISTORY Never Assessed REASON FOR VISIT chest congestion/cough PLAN OF CARE Activity Details Follow Up prn Reason: VITAL SIGNS Height 65 in 2017-11-23 Weight 175.4 lbs 2017-11-23 Temperature 99.2 degrees Fahrenheit 2017-11-23 Heart Rate 72 bpm 2017-11-23 Respiratory Rate 18 2017-11-23 BMI 29.18 kg/m2 2017-11-23 Blood pressure systolic 126 mmHg 2017-11-23 Blood pressure diastolic 82 mmHg 2017-11-23 MEDICATIONS Medication Instructions Dosage Frequency Start Date End Date Duration Status PredniSONE 20 mg Orally once daily 2 tablet with food 24h Nov, 05 days Active Baclofen 10 MG Orally Three times a day 1 tablet with food or milk 8h Not-Taking Mobic 7.5 MG Orally twice a day 1 tablet 12h Not-Taking Ondansetron 8 MG Orally every 8 hrs 1 tablet on the tongue and allow to dissolve 8h May, 05 days Not-Taking Ketoconazole 2 % Externally twice a day to affected area 1 application to affected area May, Not-Taking Amitriptyline HCl 25 MG Orally Once a day 1 tablet 24h Nov, 30 day(s) Not-Taking ProAir HFA 108 (90 Base) MCG/ACT Inhalation every 4-6 hours as needed 1-2 puffs Active Mucinex 600 MG Orally every 12 hrs 1 tablet as needed 12h 10 Jan, 2016 Not-Taking Gabapentin 300 MG Orally Once a day at night 1 capsule Dec, 30 day(s) Not-Taking Zofran 4 MG Orally Once a day 2 tablets 24h March, 03 days Not- Taking Albuterol Sulfate 108 (90 Base) MCG/ACT Inhalation every 4 hrs 1 puff as needed 4h 10 Jan, 2016 Not-Taking Naprosyn 500 MG Orally every 12 hrs 1 tablet as needed 12h May, Not-Taking Requip 2 MG Orally Once a day atnight 1 tablet 1 to 3 hours before bedtime Nov, 30 day(s) Not-Taking RESULTS Name Result Date Reference Range STREP A (IN HOUSE) 2017-11-23 STREP A negative Control + Lot # [id number] Exp date 10/19/2018 PROCEDURES Procedure Date Ordered Result Body Site STREP A ASSAY W/OPTIC Nov 23, 2017 INSTRUCTIONS MEDICATIONS ADMINISTERED No Known Medications MEDICAL (GENERAL) HISTORY Type Description Date Medical History depression Medical History chronic pain in back Medical History restless leg syndrome Medical History cardiovascular disease Surgical History Back Surgery rods in his back 2004 Surgical History Left hand crushed and has had 3 surgeries Surgical History Hernia repair Surgical History Cyst removal from head Surgical History cardiac stent 01/2018 Hospitalization History Surgery Hospitalization History cardiac arrhythmia
--- OUTSIDE RECORDS SUMMARY | 2018-05-13 13:48 | XMS REPORT ---
Author Author RIOSRENEE Taylor Organization [facility] Address [address] [place] [address] Care Team Providers Care Shredded Filler Cigar Maker Machine Name Role Phone RENEE RIOS Unavailable PROBLEMS Type Condition ICD9-CM Code [id number] Code Onset Dates Condition Status SNOMED Code Problem Coronary artery disease involving inaja coronary artery of inaja heart without angina pectoris I25.10 Active 7239263313313 Problem Asthma J45.909 Active 486084461 Problem Low back pain M54.5 Active 127988536 Problem Insomnia G47.00 Active 368458363 Problem Restless legs syndrome G25.81 Active 953387698 ALLERGIES Substance Reaction Event Type Date Status sulfa drugs Unknown Drug Allergy May, Active Vancomycin HCl Unknown Drug Allergy May, Active ENCOUNTERS Encounter Location Date Diagnosis [facility] [id number] [place] [address] 91829- 0423 Jan, Coronary artery disease involving inaja coronary artery of inaja heart without angina pectoris I25.10 [facility] [address] [place] [address] 54917- 3264 Dec, Bronchitis J40 [facility] [id number] [place] [address] 59254 -9771 14 Dec, 2017 Olecranon bursitis of left elbow M70.22 [facility] [id number] [place] [address] 37165 -0063 Nov, Mild asthma with acute exacerbation, unspecified whether persistent J45.901 and Pharyngitis, unspecified etiology J02.9 [facility] [id number] [place] [address] 59485- 3112 May, Gastroenteritis K52.9 [facility] [id number] [place] [address] 72448 -0848 Feb, [place] [id number] [place] [address] 65664- 5135 Jan, Flu-like symptoms R68.89 ; Acute upper respiratory infection , unspecified J06.9 and Other viral agents as the cause of diseases classified elsewhere B97.89 [facility] [id number] [place] [address] 51441 -9137 May, Tinea corporis B35.4 and Tendonitis of elbow, right M77.8 [facility] [id number] [place] [address] 49781 -9506 March, Gastroenteritis K52.9 [facility] [place] [id number] [place] [address] 02015 -5326 Jan, Acute pharyngitis J02.9 and Acute streptococcal pharyngitis J02.0 [place] [id number] [place] [address] 17973- 8360 Jan, Flu-like symptoms R68.89 and Asthma J45.909 [place] [id number] [place] [address] 13037- 9257 Dec, Low back pain M54.5 ; Insomnia G47.00 and Restless legs syndrome G25.81 [place] [id number] [place] [address] 49075- 2553 Nov, Low back pain M54.5 ; Insomnia G47.00 and Restless legs syndrome G25.81 [place] [id number] [place] [address] 43378- 5062 Feb, [place] [id number] [place] [address] 29612- 6124 Feb, [place] [id number] [place] [address] 94672- 0296 Jan, [place] [id number] [place] [address] 32397- 0916 Jan, [facility] [place] [facility] [address] [id number] [place] [address]- 1109 Oct, [facility] [place] [facility] [address] [id number] [place] [address]- 1806 Oct, [facility] [place] [facility] [address] [id number] [place] [address]- 0964 Oct, [facility] [place] [facility] [address] [id number] [place] [address]- 0932 Oct, [facility] [place] [facility] [address] [id number] [place] [address]- 3941 Dec, [facility] [place] [facility] [address] [id number] [place] [address]- 1519 Sep, [facility] [place] [facility] [address] [id number] [place] [address]- 9727 Sep, [facility] [place] [facility] [address] [id number] [place] [address]- 6932 Sep, [facility] [place] [facility] [address] [id number] [place] [address]- 2828 Sep, [facility] [place] [facility] [address] [id number] [place] [address]- 1282 Sep, [facility] [place] [facility] [address] [id number], [place] [address]- 4256 Sep, [facility] [place] [facility] [address] [id number], [place] [address]- 5157 Jan, [facility] [place] [facility] [address] [id number] [place] [address]- 6803 Jan, [facility] [place] [facility] [address] [id number] [address]- 9405 Aug, [facility] [place] [facility] [address] [id number] [place] [address]- 0526 Aug, [facility] [place] [facility] [address] [facility] [id number] [place] [address]- 9059 Aug, IMMUNIZATIONS No Known Immunizations SOCIAL HISTORY Never Assessed REASON FOR VISIT Vomiting/Fever--tcuppettRN, Vomiting this morning at 2 am. Hasn't vomited since , but is c/o nausea and diarrhea. Took a family members medication for nausea earlier today. PLAN OF CARE Activity Details Follow Up prn Reason: VITAL SIGNS Height 65 in 2017-05-29 Weight 167.7 lbs 2017-05-29 Temperature 98.6 degrees Fahrenheit 2017-05-29 Heart Rate 60 bpm 2017-05-29 Respiratory Rate 18 2017-05-29 BMI 27.90 kg/m2 2017-05-29 Blood pressure systolic 124 mmHg 2017-05-29 Blood pressure diastolic 78 mmHg 2017-05-29 MEDICATIONS Medication Instructions Dosage Frequency Start Date End Date Duration Status Ondansetron 8 MG Orally every 8 hrs 1 tablet on the tongue and allow to dissolve 8h May, 05 days Active Albuterol Sulfate 108 (90 Base) MCG/ACT Inhalation every 4 hrs 1 puff as needed 4h Jan, Active Mobic 7.5 MG Orally twice a day 1 tablet 12h Active Baclofen 10 MG Orally Three times a day 1 tablet with food or milk 8h Active RESULTS No Results PROCEDURES No Known procedures INSTRUCTIONS MEDICATIONS ADMINISTERED No Known Medications MEDICAL (GENERAL) HISTORY Type Description Date Medical History depression Medical History chronic pain in back Medical History restless leg syndrome Surgical History Back Surgery rods in his back 2004 Surgical History Left hand crushed and has had 3 surgeries Surgical History Hernia repair Surgical History Cyst removal from head Surgical History cardiac stent 01/2018 Hospitalization History Surgery Hospitalization History cardiac arrhythmia
--- NOTE | 2018-05-13 13:55 | ED Chest Pain ---
General Stated Complaint: CHEST PAIN Source: patient, old records Exam Limitations: no limitations History of Present Illness Date Seen by Provider: May 13, 2018 Time Seen by Provider: 13:38 Initial Comments The patient presents to the ER by private conveyance with a chief complaint he' s been having some left-sided chest pain since , 3 days ago. He says it' s episodic lasts about 15-20 minutes and then goes away after taking some aspirin. He does not take nitroglycerin. 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 He says he's been taking all of his medications as prescribed. Says the pain felt like [place] punched him right in the left chest and radiated to his left arm and neck and was about an 8 out of 10. After the aspirin and it went away. Today it came back and his boss told him he had to go get checked out because he was at work. He says the pain got better since he took 2x 81 mg aspirins at noon, an hour and a half ago. He says the pain is the same pain he felt before he had his first heart attack. He is not short of breath did not have any sweats nausea or chills. He is not having any cough, fevers or malaise. Today the pain is not radiating anywhere. He does not have diabetes but he does have high blood pressure and high cholesterolemia and he chews tobacco. He has noticed some increased swelling in both his feet over the past few days. Allergies and Home Medications Allergies Coded Allergies: amoxicillin (Verified Allergy, Mild, HIVES, 02/26/18) Sulfa (Sulfonamide Antibiotics) (Verified Allergy, Unknown, 06/04/16) vancomycin (Unverified Allergy, Unknown, 06/04/16) venom-wasp (Unverified Allergy, Unknown, 06/04/16) Home Medications Aspirin 81 Mg Tablet.dr, 81 MG PO DAILY, (Reported) Atorvastatin Calcium 80 Mg Tablet, 80 MG PO HS Prescribed by: YVON GARCIA on 02/09/18 1232 Lisinopril 10 Mg Tablet, 10 MG PO DAILY@0900 Prescribed by: YVON GARCIA on 02/09/18 1232 Metoprolol Succinate 25 Mg Tab.er.24h, 25 MG PO DAILY, (Reported) Ticagrelor 90 Mg Tablet, 90 MG PO BID Prescribed by: YVON GARCIA on 02/09/18 1232 Patient Home Medication List Home Medication List Reviewed: Yes Review of Systems Constitutional: No chills, No diaphoresis EENTM: No Eye Pain, No Eye Tearing, No Ear Pain Respiratory: Denies Cough, Denies Shortness of Air Cardiovascular: See HPI, Chest Pain; Denies Edema, Denies Irregular Heart Rate , Denies Lightheadedness, Denies Palpitations, Denies Syncope Gastrointestinal: Denies Constipated, Denies Diarrhea, Denies Nausea Genitourinary: Denies Burning, Denies Discharge Musculoskeletal: No back pain, No joint pain Skin: No pruritus, No rash Psychiatric/Neurological: Denies Headache, Denies Numbness Past Cidyubv-Fdpdjw-Uvyeqs Hx Patient Social History Alcohol Use: Occasionally Uses Alcohol Beverage of Choice: Beer Recreational Drug Use: No Smoking Status: Never a Smoker Type Used: Smokeless Tobacco 2nd Hand Smoke Exposure: No Recent Foreign Travel: No Contact w/Someone Who Travel: No Recent Hopitalizations: No Seasonal Allergies Seasonal Allergies: No Past Medical History Surgeries: Yes Ear Surgery, Orthopedic Respiratory: Yes Asthma, Chronic Bronchitis Cardiac: Yes Heart Attack, Hypertension Neurological: No Reproductive Disorders: No Genitourinary: No Gastrointestinal: No Hiatal Hernia Musculoskeletal: Yes Chronic Back Pain Endocrine: No HEENT: No Cancer: No Psychosocial: No Integumentary: No Blood Disorders: No Family Medical History Cancer, Diabetes, Hypertension Physical Exam Vital Signs Vital Signs - First Documented Capillary Refill : General Appearance: No Apparent Distress, WD/WN HEENT: PERRL/EOMI, Normal ENT Inspection, Pharynx Normal Neck: Full Range of Motion, Normal Inspection, Non Tender, Supple Respiratory: Lungs Clear, Normal Breath Sounds, No Accessory Muscle Use, No Respiratory Distress, Other (chest is tender to palpation over the left pectoral and re-creates the pain he is feeling.) Cardiovascular: Regular Rate, Rhythm, No Edema, Normal Peripheral Pulses Gastrointestinal: Normal Bowel Sounds, Non Tender, Soft Extremity: Normal Capillary Refill, Normal Inspection, Non Tender, No Calf Tenderness, No Pedal Edema Neurologic/Psychiatric: Alert, Oriented x3 Skin: Normal Color, Warm/Dry Progress/Results/Core Measures Results/Orders Lab Results Laboratory Tests Test 6/24/18 13:50 Range/Units White Blood Count 6.0 4.3-11.0 10^3/uL Red Blood Count 4.26 L 4.35-5.85 10^6/uL Hemoglobin 14.5 13.3-17.7 G/DL Hematocrit 40 40-54 % Mean Corpuscular Volume 93 80-99 FL Mean Corpuscular Hemoglobin 34 25-34 PG Mean Corpuscular Hemoglobin Concent 36 32-36 G/DL Red Cell Distribution Width 12.6 10.0-14.5 % Platelet Count 230 130-400 10^3/uL Mean Platelet Volume 10.6 H 7.4-10.4 FL Neutrophils (%) (Auto) 59 42-75 % Lymphocytes (%) (Auto) 24 12-44 % Monocytes (%) (Auto) 8 0-12 % Eosinophils (%) (Auto) 9 0-10 % Basophils (%) (Auto) 1 0-10 % Neutrophils # (Auto) 3.5 1.8-7.8 X 10^3 Lymphocytes # (Auto) 1.4 1.0-4.0 X 10^3 Monocytes # (Auto) 0.5 0.0-1.0 X 10^3 Eosinophils # (Auto) 0.5 H 0.0-0.3 10^3/uL Basophils # (Auto) 0.1 0.0-0.1 10^3/uL Prothrombin Time 13.8 12.2-14.7 SEC INR Comment 1.1 0.8-1.4 Activated Partial Thromboplast Time 32 24-35 SEC Sodium Level 141 135-145 MMOL/L Potassium Level 4.0 3.6-5.0 MMOL/L Chloride Level 109 H 98-107 MMOL/L Carbon Dioxide Level 21 21-32 MMOL/L Anion Gap 11 5-14 MMOL/L Blood Urea Nitrogen 15 7-18 MG/DL Creatinine 0.77 0.60-1.30 MG/DL Estimat Glomerular Filtration Rate > 60 BUN/Creatinine Ratio 19 Glucose Level 102 70-105 MG/DL Calcium Level 8.7 8.5-10.1 MG/DL Magnesium Level 2.0 1.8-2.4 MG/DL Total Bilirubin 1.3 H 0.1-1.0 MG/DL Aspartate Amino Transf (AST/SGOT) 26 5-34 U/L Alanine Aminotransferase (ALT/SGPT) 34 0-55 U/L Alkaline Phosphatase 66 40-136 U/L Myoglobin 36.7 10.0-92.0 NG/ML Troponin I < 0.30 <0.30 NG/ML B-Type Natriuretic Peptide 19.4 <100.0 PG/ML Total Protein 7.1 6.4-8.2 GM/DL Albumin 4.4 3.2-4.5 GM/DL Lipase 34 8-78 U/L Serum Alcohol < 10 <10 MG/DL My Orders Orders - SIMONE SANDERS Cbc With Automated Diff (05/13/18 13:47) Magnesium (05/13/18 13:47) Chest 1 View, Ap/Pa Only (05/13/18 13:47) Ekg Tracing (05/13/18 13:47) Cardiac Profile 1 (05/13/18 13:47) Comprehensive Metabolic Panel (05/13/18 13:47) Myoglobin Serum (05/13/18 13:47) Protime With Inr (05/13/18 13:47) Partial Thromboplastin Time (05/13/18 13:47) O2 (05/13/18 13:47) Monitor-Rhythm Ecg Trace Only (05/13/18 13:47) Lipid Panel (05/14/18 06:00) Aspirin Chewable Tablet (Baby Aspirin Ch (05/13/18 14:00) Nitroglycerin 0.4 Mg Btl 25's (Nitrostat (05/13/18 14:00) Saline Lock/Iv-Start (05/13/18 13:47) Lipase (05/13/18 13:47) Alcohol (05/13/18 14:05) BNP (05/13/18 14:07) Medications Given in ED Current Medications Medications Dose Ordered Sig/Tia Route Start Time Stop Time Status Last Admin Dose Admin Aspirin 162 mg ONCE ONCE PO 05/13/18 14:00 05/13/18 14:01 DC 05/13/18 13:57 162 MG Nitroglycerin 0.4 mg UD PRN SL 05/13/18 14:00 05/13/18 13:57 0.4 MG Vital Signs/I&O 05/13/18 05/13/18 13:41 13:41 Temp 98.6 Pulse 54 Resp 14 B/P (MAP) 130/94 (106) O2 Delivery Room Air Room Air Progress Progress Note #1: Time: 13:56 Progress Note ED ACS is 11 points; Low risk by the EDACS Score. If the patient also has: (1) EKG without new ischemic changes and (2) negative initial and 2-hour troponins, then this patient is safe for discharge to early outpatient follow-up investigation (or proceed to earlier inpatient testing). If EKG with ischemic changes or positive troponin, they are not low risk and require normal risk stratification. Dr. Mckenzie February 2018 repeat PCI showing severe LAD stenosis treated with a drug -eluting stent. At that time the LAD was patent without obstructive coronary artery disease. He had elevated left ventricular end-diastolic pressure suggesting diastolic dysfunction. Echocardiogram from January [address] Mckenzie: EF of 55-65% normal size the cavity and wall thickness, left ventricle and diastolic function parameters were normal at that time. Progress Note #2: Time: 14:15 Progress Note The pain resolved from a 3 out of 10 to practically gone with 1 dose of nitroglycerin. Initial ECG Impression Date: May 13, 2018 Initial ECG Impression Time: 13:42 Initial ECG Rate: 55 Initial ECG Rhythm: Normal Sinus Initial ECG Intervals: Normal Initial ECG Impression: Normal Initial ECG Comparisson: Unchanged Comment No ST elevation or depression. Diagnostic Imaging Diagonstic Imaging: Xray Plain Films/CT/US/NM/MRI: chest (1v) Comments NAME: GERARDO KLEIN [facility] REC#: [id number] PT STATUS: REG ER : 1965 PHYSICIAN: SIMONE SANDERS MD ADMIT DATE: 05/13/18/ER Draft Date of Exam:05/13/18 CHEST 1 VIEW, AP/PA ONLY Indication: Chest pain for 3 days. Upright portable chest shows normal heart size and vascularity. The lungs are clear. There is no effusion or pneumothorax. Impression: Normal chest. There is no change from 12/22/2017. Dictated on workstation # [id number] Dict: 05/13/18 1408 Trans: 05/13/18 1411 [facility] [id number] Interpreted by: CHUY MENDOZA MD Electronically signed by: Reviewed: Reviewed by Me Consults : Consulting Physician: PARISH FERREIRA MD FACP FACC CCDS Consults Notes Discussed the case lab EKG imaging and response to nitroglycerin. He says go ahead and send him home with the bottle nitroglycerin and have him use it correctly and if it does not improve his chest pain and haven't re-present to the ER. Otherwise have him follow-up with Dr. Mckenzie. Departure Impression Primary Impression: Chest pain Qualified Codes: R07.9 - Chest pain, unspecified Disposition: HOME, SELF-CARE Condition: Stable Departure-Patient Inst. Decision time for Depature: 15:04 Referrals: KLEBER HILARIO DO (PCP) Primary Care Physician BALBINA MOSES (Family) Primary Care Physician Anne Marie MCKENZIE MD Patient Instructions: Angina (DC) Add. Discharge Instructions: If you have the chest pain take one tablet of the nitroglycerin place it on the tongue and let it dissolve. You can do repeat this every 5 minutes as needed until your chest pain is under control up to 3 times. If you do it 3 times in your chest pain does not get better then you should go to the nearest ER to be checked out. Plan to follow up with your plant operator/shift supervisor in the next week. Copy Copies To 1: KLEBER HILARIO DO; Anne Marie MCKENZIE MD, TITUS J May 13, 2018 13:55
[2018-05-13 13:58] LABS: BASOPHILS # (AUTO) 0.1 10^3/uL (0.0-0.1); BASOPHILS % (AUTO) 1 % (0-10); EOSINOPHILS # (AUTO) 0.5 10^3/uL (0.0-0.3); EOSINOPHILS % (AUTO) 9 % (0-10); HEMATOCRIT 40 % (40-54); HEMOGLOBIN 14.5 G/DL (13.3-17.7); LYMPHOCYTES # (AUTO) 1.4 X 10^3 (1.0-4.0); LYMPHOCYTES % (AUTO) 24 % (12-44); MEAN CORPUSCULAR HEMOGLOBIN 34 PG (25-34); MEAN CORPUSCULAR HGB CONC 36 G/DL (32-36); MEAN CORPUSCULAR VOLUME 93 FL (80-99); MEAN PLATELET VOLUME 10.6 FL (7.4-10.4); MONOCYTES # (AUTO) 0.5 X 10^3 (0.0-1.0); MONOCYTES % (AUTO) 8 % (0-12); NEUTROPHILS # (AUTO) 3.5 X 10^3 (1.8-7.8); NEUTROPHILS % (AUTO) 59 % (42-75); PLATELET COUNT 230 10^3/uL (130-400); RED BLOOD COUNT 4.26 10^6/uL (4.35-5.85); RED CELL DISTRIBUTION WIDTH 12.6 % (10.0-14.5)
[2018-05-13] MEDS ORDERED: ASPIRIN 81 MG CHEW (CHILDREN'S ASA) PO ONE (14:00)
[2018-05-13] MEDS ORDERED: NITROGLYCERIN 0.4 MG SL TABS BTL 25'S SL PRN (14:00)
[2018-05-13 14:06] LABS: INR 1.1 (0.8-1.4); PROTHROMBIN TIME PATIENT 13.8 SEC (12.2-14.7)
--- NOTE | 2018-05-13 14:12 | Diagnostic Imaging Report ---
Indication: Chest pain for 3 days. Upright portable chest shows normal heart size and vascularity. The lungs are clear. There is no effusion or pneumothorax. Impression: Normal chest. There is no change from 12/22/2017. Dictated by: Dictated on workstation # [id number]
[2018-05-13 14:16] LABS: ALANINE AMINOTRANSFERASE 34 U/L (0-55); ALBUMIN 4.4 GM/DL (3.2-4.5); ALKALINE PHOSPHATASE 66 U/L (40-136); BILIRUBIN,TOTAL 1.3 MG/DL (0.1-1.0); BUN/CREATININE RATIO 19; CALCIUM 8.7 MG/DL (8.5-10.1); CARBON DIOXIDE 21 MMOL/L (21-32); CHLORIDE 109 MMOL/L (98-107); CREATININE SERUM 0.77 MG/DL (0.60-1.30); GFR ESTIMATED > 60; GLUCOSE 102 MG/DL (70-105); LIPASE 34 U/L (8-78); SODIUM 141 MMOL/L (135-145); TOTAL PROTEIN 7.1 GM/DL (6.4-8.2)
[2018-05-13 14:22] LABS: MYOGLOBIN SERUM 36.7 NG/ML (10.0-92.0)
[2018-05-13 15:23] VITALS: BP 104/71
== END 2018-05-13 15:23 | disposition home or self-care (01) ==
LOC: EDUNIT# 13:41 → ER 13:43
DX: R07.89 Other chest pain (principal); J44.9 Chronic obstructive pulmonary disease, unspecified; I10 Essential (primary) hypertension; I25.2 Old myocardial infarction; E78.00 Pure hypercholesterolemia, unspecified; F17.220 Nicotine dependence, chewing tobacco, uncomplicated; Z87.19 Personal history of other diseases of the digestive system; Z79.82 Long term (current) use of aspirin; Z88.1 Allergy status to other antibiotic agents; Z88.2 Allergy status to sulfonamides; Z91.038 Other insect allergy status
CPT/HCPCS: 36415; 71045; 80053; 80320; 83690; 83735; 83874; 83880; 84484; 85025; 85610; 85730; 93005; 93041

== ENCOUNTER 2018-06-11 09:24 | Outpatient (RCR) | payer OTHER | END 2018-07-01 | disposition home or self-care (01) | LOC: CR 09:24 | PROVIDERS: ATTEND Internal Medicine Interventional Cardiology | DX: Z48.812 Encounter for surgical aftercare following surgery on the circulatory system (principal); Z95.5 Presence of coronary angioplasty implant and graft | CPT/HCPCS: 93798 ==

== ENCOUNTER 2018-07-30 08:46 | Outpatient (RCR) | payer OTHER ==
[2018-08-16] MEDS ORDERED: RANO500T3 PO (13:08)
== END 2018-09-30 | disposition home or self-care (01) ==
LOC: CR 08:46
PROVIDERS: ATTEND Internal Medicine Interventional Cardiology
DX: Z48.812 Encounter for surgical aftercare following surgery on the circulatory system (principal); Z95.5 Presence of coronary angioplasty implant and graft
CPT/HCPCS: 93798

== ENCOUNTER 2018-08-16 11:25 | Emergency (ER) | payer OTHER ==
[~2018-08-16] VITALS: Ht 165.1 cm; Wt 74.4 kg
--- NOTE | 2018-08-16 11:48 | ED Chest Pain ---
General Chief Complaint: Chest Pain Stated Complaint: CHEST PAIN Nursing Triage Note: Pt arrives to ED Room #1 with c/o chest pain x2 weeks. Pt states that the pain got unbearable at work, doubling him over and last 15-30min. Pt states that the pain is 10/10, makes his head feel as if it were going to explode, has had high BP, pain is intermittent and he has had at least 4 episodes this AM. Pt states that the pain subsides with rest. Nursing Sepsis Screen: No Definite Risk History of Present Illness Date Seen by Provider: Aug 16, 2018 Time Seen by Provider: 11:35 Initial Comments 53-year-old male presents for left-sided chest pain. He states the pain has occurred 5 different times this morning and last between 5 and 15 minutes. He has not taken any nitroglycerin today for the chest pain. He has been having this pain intermittently for approximately [address] Virk's office and has an appt in 5 days, was told to come to ED if pain worsens. Over the last 2 weeks he has used the nitroglycerin which does relieve his chest pain that he has significant headache after taking the nitroglycerin, so he prefers not to take it. He is on Brilinta and aspirin. 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 NTG SL WIRE STITCHER: No Associated Symptoms: denies symptoms Allergies and Home Medications Allergies Coded Allergies: amoxicillin (Verified Allergy, Mild, HIVES, 02/26/18) Sulfa (Sulfonamide Antibiotics) (Verified Allergy, Unknown, 06/04/16) vancomycin (Unverified Allergy, Unknown, 06/04/16) venom-wasp (Unverified Allergy, Unknown, 06/04/16) Home Medications Aspirin 81 Mg Tablet., 81 MG PO DAILY, (Reported) Atorvastatin Calcium 80 Mg Tablet, 80 MG PO HS Prescribed by: YVON GARCIA on 02/09/18 1232 Lisinopril 10 Mg Tablet, 10 MG PO DAILY@0900 Prescribed by: YVON GARCIA on 02/09/18 1232 Metoprolol Succinate 25 Mg Tab.er.24h, 25 MG PO DAILY, (Reported) Ranolazine 500 Mg Tab.er.12h, 500 MG PO BID Prescribed by: LIZET IZAGUIRRE on 08/16/18 1308 Ticagrelor 90 Mg Tablet, 90 MG PO BID Prescribed by: YVON GARCIA on 02/09/18 1232 Patient Home Medication List Home Medication List Reviewed: Yes Review of Systems Review of Systems Constitutional: no symptoms reported, see HPI Cardiovascular: See HPI, Chest Pain All Other Systems Reviewed Negative Unless Noted: Yes Past Afkouvq-Opbqfj-Wmnnwa Hx Past Med/Social Hx: Reviewed Nursing Past Med/Soc Hx Patient Social History Alcohol Use: Occasionally Uses Number of Drinks Today: AA Alcohol Beverage of Choice: Beer Recreational Drug Use: No Type Used: Smokeless Tobacco 2nd Hand Smoke Exposure: No Recent Foreign Travel: No Contact w/Someone Who Travel: No Recent Infectious Disease Expo: No Recent Hopitalizations: No Physical Abuse: No Sexual Abuse: No Mistreated: No Fear: No Seasonal Allergies Seasonal Allergies: No Past Medical History Surgeries: Yes (back, left hand recontruction, COLONOSCOPY) Ear Surgery, Orthopedic Respiratory: Yes Asthma, Chronic Bronchitis Cardiac: Yes Heart Attack, Hypertension Neurological: No Reproductive Disorders: No Genitourinary: No Gastrointestinal: No (rectal bleeding) Hiatal Hernia Musculoskeletal: Yes Chronic Back Pain Endocrine: No HEENT: No Cancer: No Psychosocial: No Integumentary: No Blood Disorders: No Family Medical History Cancer, Diabetes, Hypertension Physical Exam Vital Signs Vital Signs - First Documented Capillary Refill : Less Than 3 Seconds Height, Weight, BMI Height: 5'5.00" Weight: 164lbs. 0.0oz. 74.444475oi; 29.0 BMI Method:Stated General Appearance: No Apparent Distress, WD/WN HEENT: PERRL/EOMI, TMs Normal, Normal ENT Inspection, Pharynx Normal Neck: Full Range of Motion, Normal Inspection, Non Tender, Supple Respiratory: Chest Non Tender, Lungs Clear, Normal Breath Sounds Cardiovascular: Regular Rate, Rhythm, No Edema, No Murmur, Normal Peripheral Pulses Gastrointestinal: Normal Bowel Sounds, Non Tender, Soft Neurologic/Psychiatric: Alert, Oriented x3, No Motor/Sensory Deficits, Normal Mood/Affect Skin: Normal Color, Warm/Dry Progress/Results/Core Measures Results/Orders Lab Results Laboratory Tests Test 08/16/18 11:32 Range/Units White Blood Count 6.8 4.3-11.0 10^3/uL Red Blood Count 4.31 L 4.35-5.85 10^6/uL Hemoglobin 14.4 13.3-17.7 G/DL Hematocrit 41 40-54 % Mean Corpuscular Volume 94 80-99 FL Mean Corpuscular Hemoglobin 33 25-34 PG Mean Corpuscular Hemoglobin Concent 36 32-36 G/DL Red Cell Distribution Width 12.7 10.0-14.5 % Platelet Count 263 130-400 10^3/uL Mean Platelet Volume 10.9 H 7.4-10.4 FL Neutrophils (%) (Auto) 61 42-75 % Lymphocytes (%) (Auto) 20 12-44 % Monocytes (%) (Auto) 9 0-12 % Eosinophils (%) (Auto) 10 0-10 % Basophils (%) (Auto) 1 0-10 % Neutrophils # (Auto) 4.2 1.8-7.8 X 10^3 Lymphocytes # (Auto) 1.4 1.0-4.0 X 10^3 Monocytes # (Auto) 0.6 0.0-1.0 X 10^3 Eosinophils # (Auto) 0.7 H 0.0-0.3 10^3/uL Basophils # (Auto) 0.0 0.0-0.1 10^3/uL Prothrombin Time 13.8 12.2-14.7 SEC INR Comment 1.1 0.8-1.4 Activated Partial Thromboplast Time 33 24-35 SEC Sodium Level 140 135-145 MMOL/L Potassium Level 3.9 3.6-5.0 MMOL/L Chloride Level 108 H 98-107 MMOL/L Carbon Dioxide Level 23 21-32 MMOL/L Anion Gap 9 5-14 MMOL/L Blood Urea Nitrogen 15 7-18 MG/DL Creatinine 0.78 0.60-1.30 MG/DL Estimat Glomerular Filtration Rate > 60 BUN/Creatinine Ratio 19 Glucose Level 111 H 70-105 MG/DL Calcium Level 9.2 8.5-10.1 MG/DL Corrected Calcium 8.9 8.5-10.1 MG/DL Magnesium Level 2.1 1.8-2.4 MG/DL Total Bilirubin 1.0 0.1-1.0 MG/DL Aspartate Amino Transf (AST/SGOT) 24 5-34 U/L Alanine Aminotransferase (ALT/SGPT) 27 0-55 U/L Alkaline Phosphatase 68 40-136 U/L Myoglobin 40.3 10.0-92.0 NG/ML Troponin I < 0.30 <0.30 NG/ML Total Protein 7.2 6.4-8.2 GM/DL Albumin 4.4 3.2-4.5 GM/DL My Orders Orders - LIZET IZAGUIRRE Cbc With Automated Diff (08/16/18 11:37) Magnesium (08/16/18 11:37) Chest 1 View, Ap/Pa Only (08/16/18 11:37) Ekg Tracing (08/16/18 11:37) Cardiac Profile 1 (08/16/18 11:37) Comprehensive Metabolic Panel (08/16/18 11:37) Myoglobin Serum (08/16/18 11:37) Protime With Inr (08/16/18 11:37) Partial Thromboplastin Time (08/16/18 11:37) O2 (08/16/18 11:37) Monitor-Rhythm Ecg Trace Only (08/16/18 11:37) Saline Lock/Iv-Start (08/16/18 11:37) Vital Signs/I&O 08/16/18 08/16/18 08/16/18 08/16/18 11:26 11:26 11:26 13:44 Temp 97.8 Pulse 64 52 Resp 12 18 B/P (MAP) 133/86 (102) 101/67 Pulse Ox 96 96 98 O2 Delivery Nasal Cannula Nasal Cannula Nasal Cannula Room Air O2 Flow Rate 2.00 2.0 Blood Pressure Mean: 102 Progress Progress Note : Time: 11:35 Progress Note Patient seen and evaluated, initial chest pain workup started. Patient is currently asymptomatic of pain, no medications will be given at this time, further treatment pending labs, EKG and chest x-ray. 1230 patient continues to be pain-free, lab, x-ray and EKG have all been normal. [address] Wise, covering for Dr. Virk. Reviewed patient's assessment , diagnostic studies and results. He recommended stopping the nitroglycerin, trying Ranexa 500 mg twice a day in keeping scheduled appointment with Dr. Virk for next week. 1315 discharge instructions and return precautions reviewed with the patient. All questions answered. Initial ECG Impression Date: Aug 16, 2018 Initial ECG Impression Time: 11:29 Initial ECG Rate: 68 Initial ECG Rhythm: Normal Sinus Initial ECG Intervals: Normal Initial ECG Intervals TN 184, QRS T 88, QT 384, QTc 409. [place] P 32, QRS -7, T 38. Initial ECG Impression: Normal Initial ECG Comparisson: Unchanged Comment Reviewed with Dr. Mayer, concurred with interpretation. Diagnostic Imaging Diagonstic Imaging: Xray Plain Films/CT/US/NM/MRI: chest Comments NAME: GERARDO KLEIN [facility] REC#: [id number] PT STATUS: REG ER : 1965 PHYSICIAN: LIZET IZAGUIRRE ADMIT DATE: 08/16/18/ER Draft Date of Exam:08/16/18 CHEST 1 VIEW, AP/PA ONLY PATIENT HISTORY: Chest pain for 2 weeks. TECHNIQUE: Single frontal view of the chest COMPARISON: 05/13/2018 FINDINGS: The lung volumes are normal. No focal consolidation is seen. There is a nodular density overlying the left upper lung, which appears stable since December 2016, and is thought to be related to the left first rib. No large pleural effusion or pneumothorax is seen. The cardiomediastinal silhouette is normal in size and contour. No acute osseous abnormality is seen. Lumbar spine fusion hardware is noted. IMPRESSION: 1. No acute pulmonary abnormality seen. Dictated on workstation # [id number] Dict: 08/16/18 1156 Trans: 08/16/18 1201 [id number] Interpreted by: ZACK BRITTON MD Electronically signed by: Reviewed: Reviewed by Me Departure Impression Primary Impression: Chest pain Qualified Codes: R07.89 - Other chest pain Additional Impressions: Angina pectoris Coronary artery disease Qualified Codes: I25.118 - Atherosclerotic heart disease of koi coronary artery with other forms of angina pectoris Disposition: 01 HOME, SELF-CARE Condition: Improved Departure-Patient Inst. Decision time for Depature: 13:05 Referrals: KLEBER HILARIO DO (PCP) Primary Care Physician BALBINA MOSES (Family) Primary Care Physician Patient Instructions: Angina (DC), Heart Healthy Diet Add. Discharge Instructions: Keep your scheduled follow up with Dr. Virk. Discontinue the nitroglycerin. Take the Ranexa one tablet twice daily as prescribed. Take all of your routine medications as prescribed. Return to emergency department for acute chest pain, new problems or concerns. All discharge instructions reviewed with patient and/or family. Voiced understanding. Scripts Ranolazine (Ranexa) 500 Mg Tab.er.12h 500 MG PO BID, #30 TAB 0 Refills Prov: LIZET IZAGUIRRE 08/16/18 Work/School Note: Work Release Form Date Seen in the Emergency Department: Aug 16, 2018 Return to Work: Aug 20, 2018 Restrictions: No Restrictions Copy Copies To 1: Anne Marie VIRK MD Copies To 2: KLEBER HILARIO AMY ARNP Aug 16, 2018 11:48
[2018-08-16 11:55] LABS: BASOPHILS % (AUTO) 1 % (0-10); EOSINOPHILS # (AUTO) 0.7 10^3/uL (0.0-0.3); EOSINOPHILS % (AUTO) 10 % (0-10); HEMATOCRIT 41 % (40-54); HEMOGLOBIN 14.4 G/DL (13.3-17.7); LYMPHOCYTES # (AUTO) 1.4 X 10^3 (1.0-4.0); LYMPHOCYTES % (AUTO) 20 % (12-44); MEAN CORPUSCULAR HEMOGLOBIN 33 PG (25-34); MEAN CORPUSCULAR HGB CONC 36 G/DL (32-36); MEAN CORPUSCULAR VOLUME 94 FL (80-99); MEAN PLATELET VOLUME 10.9 FL (7.4-10.4); MONOCYTES # (AUTO) 0.6 X 10^3 (0.0-1.0); MONOCYTES % (AUTO) 9 % (0-12); NEUTROPHILS # (AUTO) 4.2 X 10^3 (1.8-7.8); NEUTROPHILS % (AUTO) 61 % (42-75); PLATELET COUNT 263 10^3/uL (130-400); RED BLOOD COUNT 4.31 10^6/uL (4.35-5.85); RED CELL DISTRIBUTION WIDTH 12.7 % (10.0-14.5); WHITE BLOOD COUNT 6.8 10^3/uL (4.3-11.0)
--- NOTE | 2018-08-16 12:02 | Diagnostic Imaging Report ---
PATIENT HISTORY: Chest pain for 2 weeks. TECHNIQUE: Single frontal view of the chest COMPARISON: 05/13/2018 FINDINGS: The lung volumes are normal. No focal consolidation is seen. There is a nodular density overlying the left upper lung, which appears stable since December 2016, and is thought to be related to the left first rib. No large pleural effusion or pneumothorax is seen. The cardiomediastinal silhouette is normal in size and contour. No acute osseous abnormality is seen. Lumbar spine fusion hardware is noted. IMPRESSION: 1. No acute pulmonary abnormality seen. Dictated by: Dictated on workstation # [id number]
[2018-08-16 12:07] LABS: INR 1.1 (0.8-1.4); PROTHROMBIN TIME PATIENT 13.8 SEC (12.2-14.7)
[2018-08-16 12:13] LABS: ALANINE AMINOTRANSFERASE 27 U/L (0-55); ALBUMIN 4.4 GM/DL (3.2-4.5); ALKALINE PHOSPHATASE 68 U/L (40-136); BUN/CREATININE RATIO 19; CALCIUM 9.2 MG/DL (8.5-10.1); CARBON DIOXIDE 23 MMOL/L (21-32); CHLORIDE 108 MMOL/L (98-107); CREATININE SERUM 0.78 MG/DL (0.60-1.30); GFR ESTIMATED > 60; GLUCOSE 111 MG/DL (70-105); MAGNESIUM 2.1 MG/DL (1.8-2.4); POTASSIUM 3.9 MMOL/L (3.6-5.0); SODIUM 140 MMOL/L (135-145); TOTAL PROTEIN 7.2 GM/DL (6.4-8.2)
[2018-08-16 12:19] LABS: MYOGLOBIN SERUM 40.3 NG/ML (10.0-92.0)
[2018-08-16] MEDS ORDERED: RANO500T3 PO (13:08)
[2018-08-16 13:44] VITALS: BP 101/67
--- OUTSIDE RECORDS SUMMARY | 2018-08-16 15:02 | XMS REPORT ---
Author Author BALBINA MOSES Organization [facility] Address [address] [place] [address] Care Team Providers Care Neurourologist Name Role Phone BALBINA MOSES Unavailable PROBLEMS Type Condition ICD9-CM Code PNN62-DM Code Onset Dates Condition Status SNOMED Code Problem Coronary artery disease involving [place] coronary artery of [place] heart without angina pectoris I25.10 Active 5360286891809 Problem Asthma J45.909 Active 475691189 Problem Low back pain M54.5 Active 882939622 Problem Insomnia G47.00 Active 643340809 Problem Restless legs syndrome G25.81 Active 912090480 ALLERGIES No Information ENCOUNTERS Encounter Location Date Diagnosis [place] [address] [address] May, [address] [address] March, SOB (shortness of breath) R06.02 [place] [address] [address] Feb, SOB (shortness of breath) R06.02 ; Wheezing R06.2 ; Asthma J45.909 and Coronary artery disease involving [place] coronary artery of [place] heart without angina pectoris I25.10 [facility] [address] [place] [id number] [place] [address] Jan, Coronary artery disease involving [place] coronary artery of [place] heart without angina pectoris I25.10 [place] [address] [address] 21 Dec, 2017 Bronchitis J40 [facility] [address] [address] 14 Dec, 2017 Olecranon bursitis of left elbow M70.22 [facility] [place] [address] [place] [id number] [place] [address] Nov, Mild asthma with acute exacerbation, unspecified whether persistent J45.901 and Pharyngitis, unspecified etiology J02.9 [place] [address] [place] [id number] [place] [address] May, Gastroenteritis K52.9 [facility] [address] [address] Feb, [place] [address] [address] Jan, Flu-like symptoms R68.89 ; Acute upper respiratory infection , unspecified J06.9 and Other viral agents as the cause of diseases classified elsewhere B97.89 [facility] [place] [id number] [place] [address] May, Tinea corporis B35.4 and Tendonitis of elbow, right M77.8 [facility] [place] [id number] [place] [address] March, Gastroenteritis K52.9 [facility] [place] [id number] [place] [address] 12 Jan, 2016 Acute pharyngitis J02.9 and Acute streptococcal pharyngitis J02.0 [place] [address] [place] [id number] [place] [address]- [address] Jan, Flu-like symptoms R68.89 and Asthma J45.909 [place] [address] [place] [id number] [place] [address] Dec, Low back pain M54.5 ; Insomnia G47.00 and Restless legs syndrome G25.81 [place] [address] [place] [id number] [place] [address]- [address] Nov, Low back pain M54.5 ; Insomnia G47.00 and Restless legs syndrome G25.81 [facility] [address] [id number] [place] [address] 14 Feb, 2015 [facility] [address] [id number] [place] [address] 450[address] Feb, [facility] [address] [id number] [place] [address] 0649 Jan, [facility] [address] [id number] [place] [address] 7089 Jan, [facility] [address] [id number] [place] [address]- 6145 Oct, [facility] [address] [id number] [place] [address] 9433 Oct, [facility] [address] [facility] [id number] [place] [address]- 4056 Oct, [facility] [address] [facility] [id number] [place] [address]- 7097 Oct, [facility] [address] [facility] [id number] [place] [address]- 8639 Dec, [facility] [address] [facility] [id number] [place] [address]- 9373 Sep, [facility] [address] [facility] [id number] [place] [address]- 8062 Sep, [facility] [address] [id number], [place] [address] Sep, [facility] [address] [id number] [place] [address]- 0680 Sep, [facility] [address] [facility] [id number] [place] [address]- 9455 Sep, [facility] [address] [facility] [id number], [place] [address] Sep, [facility] [address] [facility] [id number], [place] [address] Jan, [facility] [address] [facility] [id number], [place] [address] Jan, [facility] [address] [facility] [id number], [place] [address] 44[address] Aug, [facility] [address] [facility] [id number], [place] [address] Aug, [facility] [address] [facility] [id number], [place] [address] Aug, IMMUNIZATIONS No Known Immunizations SOCIAL HISTORY Never Assessed REASON FOR VISIT Refill request PLAN OF CARE VITAL SIGNS MEDICATIONS Medication Instructions Dosage Frequency Start Date End Date Duration Status Brilinta 90 MG Orally Twice a day 1 tablet 12h 30 days Active Metoprolol Succinate ER 25 MG Orally Once a day 1 tablet 24h 30 days Active RESULTS No Results PROCEDURES No Known [...]
--- OUTSIDE RECORDS SUMMARY | 2018-08-16 15:02 | XMS REPORT ---
Author Author BALBINA MOSES Organization [facility] Address [address] [place] [address] Care Team Providers Care Museum Archivist Name Role Phone BALBINA MOSES Unavailable PROBLEMS Type Condition ICD9-CM Code OCA36-OM Code Onset Dates Condition Status SNOMED Code Problem Coronary artery disease involving [place] coronary artery of [place] heart without angina pectoris I25.10 Active 1145185735588 Problem Asthma J45.909 Active 011048233 Problem Low back pain M54.5 Active 220647682 Problem Insomnia G47.00 Active 245929635 Problem Restless legs syndrome G25.81 Active 395249736 ALLERGIES No Information ENCOUNTERS Encounter Location Date Diagnosis [place] [address] [address] May, [address] [address] March, SOB (shortness of breath) R06.02 [place] [address] [address] Feb, SOB (shortness of breath) R06.02 ; Wheezing R06.2 ; Asthma J45.909 and Coronary artery disease involving [place] coronary artery of [place] heart without angina pectoris I25.10 [facility] [address] [place] [id number] [place] [address] Jan, Coronary artery disease involving [place] coronary artery of [place] heart without angina pectoris I25.10 [place] [address] [address] 21 Dec, 2017 Bronchitis J40 [facility] [address] [address] 14 Dec, 2017 Olecranon bursitis of left elbow M70.22 [facility] [place] [address] [place] [id number] [place] [address] Nov, Mild asthma with acute exacerbation, unspecified whether persistent J45.901 and Pharyngitis, unspecified etiology J02.9 [place] [address] [place] [id number] [place] [address]- [address] May, Gastroenteritis K52.9 [facility] IN [address] [address] Feb, [place] [address] [address] Jan, Flu-like symptoms R68.89 ; Acute upper respiratory infection , unspecified J06.9 and Other viral agents as the cause of diseases classified elsewhere B97.89 [facility] [place] [id number] [place] [address] May, Tinea corporis B35.4 and Tendonitis of elbow, right M77.8 [facility] [place] [id number] [place] [address] March, Gastroenteritis K52.9 [facility] [place] [id number] [place] [address] -[address] 12 Jan, 2016 Acute pharyngitis J02.9 and Acute streptococcal pharyngitis J02.0 [place] [address] [place] [id number] [place] [address]- [address] Jan, Flu-like symptoms R68.89 and Asthma J45.909 [place] [address] [place] [id number] [place] [address]- [address] Dec, Low back pain M54.5 ; Insomnia G47.00 and Restless legs syndrome G25.81 [place] [address] [place] [id number] [place] [address]- [address] Nov, Low back pain M54.5 ; Insomnia G47.00 and Restless legs syndrome G25.81 [facility] [address] [id number] [place] [address] 14 Feb, 2015 [facility] [address] [id number] [place] [address]- 8744 Feb, [facility] [address] [id number] [place] [address]- 9512 Jan, [facility] [address] [id number] [place] [address]- 6762 Jan, [facility] [address] [id number] [place] [address]- 1793 Oct, [facility] [address] [id number] [place] [address]- 1339 Oct, [facility] [address] [facility] [id number] [place] [address]- 1246 Oct, [facility] [address] [facility] [id number] [place] [address]- 4881 Oct, [facility] [address] [facility] [id number] [place] [address]- 6364 Dec, [facility] [address] [facility] [id number] [place] [address]- 6734 Sep, [facility] [address] [facility] [id number] [place] [address]- 2002 Sep, [facility] [address] [id number], [place] [address]- 5904 Sep, [facility] [address] [id number] [place] [address]- 1125 Sep, [facility] [address] [facility] [id number] [place] [address]- 6113 Sep, [facility] [address] [facility] [id number][place] [address]- 0039 Sep, [facility] [address] [facility] [id number], [place] [address]- 2546 Jan, [facility] [address] [facility] [id number], [place] [address]- 2546 Jan, [facility] [address] [facility] [id number], [place] [address]- 2546 Aug, [facility] [address] [facility] [id number], [place] [address]- 2546 Aug, [facility] [address] [facility] [id number], [place] [address]- 2546 Aug, IMMUNIZATIONS No Known Immunizations SOCIAL HISTORY Never Assessed REASON FOR VISIT 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
--- OUTSIDE RECORDS SUMMARY | 2018-08-16 15:02 | XMS REPORT ---
Author Author BALBINA MOSES Organization [facility] Address [address] [place] [address] Care Team Providers Care Dry Color Tester Name Role Phone BALBINA MOSES Unavailable PROBLEMS Type Condition ICD9-CM Code AZI71-TF Code Onset Dates Condition Status SNOMED Code Problem Coronary artery disease involving [place] coronary artery of [place] heart without angina pectoris I25.10 Active 8517149021997 Problem Asthma J45.909 Active 465894743 Problem Low back pain M54.5 Active 565098104 Problem Insomnia G47.00 Active 292671401 Problem Restless legs syndrome G25.81 Active 455528411 ALLERGIES Substance Reaction Event Type Date Status Vancomycin HCl Unknown Drug Allergy Feb, Active Sulfamethoxazole-Trimethoprim Unknown Drug Allergy Feb, Active ENCOUNTERS Encounter Location Date Diagnosis [place] [address] [place] [id number] [place] [address] May, [facility] [address] [place] [address]24- 8367 March, SOB (shortness of breath) R06.02 [facility] [address] [place] [id number] [place] [address]- 8240 Feb, SOB (shortness of breath) R06.02 ; Wheezing R06.2 ; Asthma J45.909 and Coronary artery disease involving [place] coronary artery of [place] heart without angina pectoris I25.10 [facility] [address] [place] [id number] [place] [address]67- 2779 Jan, Coronary artery disease involving [place] coronary artery of [place] heart without angina pectoris I25.10 [facility] [address] [place] [id number] [place] [address]- 6895 Dec, Bronchitis J40 [facility] [address] [address] 14 Dec, 2017 Olecranon bursitis of left elbow M70.22 [facility] IN [address] [address] Nov, Mild asthma with acute exacerbation, unspecified whether persistent J45.901 and Pharyngitis, unspecified etiology J02.[address] [address] May, Gastroenteritis K52.9 [facility] IN [address] [address] Feb, [address] [address]- [address] Jan, Flu-like symptoms R68.89 ; Acute upper respiratory infection , unspecified J06.9 and Other viral agents as the cause of diseases classified elsewhere B97.89 [facility] IN [address] [address] May, Tinea corporis B35.4 and Tendonitis of elbow, right M77.8 [facility] IN [address] [address] March, Gastroenteritis K52.9 [facility] IN [address] [address] 12 Jan, 2016 Acute pharyngitis J02.9 and Acute streptococcal pharyngitis J02.[address] [address]- [address] 10 Jan, 2016 Flu-like symptoms R68.89 and Asthma J45.[address] [address]- [address] 03 Dec, 2015 Low back pain M54.5 ; Insomnia G47.00 and Restless legs syndrome G25.[address] [address] Nov, Low back pain M54.5 ; Insomnia G47.00 and Restless legs syndrome G25.81 [facility] [address] [address] 14 Feb, 2015 [facility] [address] [facility] [id number] [place] [address]- 8[address] Feb, [facility] [address] [facility] [id number] [place] [address], [place] [address]- 7914 Jan, [facility] [address] [facility] [id number] [place] [address]- 5097 Jan, [facility] [address] [place] [id number] [place] [address], [place] [address]- 7851 Oct, [facility] [address] [place] [id number] [address] 0992 Oct, [facility] [id number] [place] [address], [place] [address]- 8308 Oct, [facility] [address] [place] [id number] [address]- 2244 Oct, [facility] [address] [address]- 4[address] Dec, [facility] [address] [address] 79[address] Sep, [facility] [address], [place] [address]- 5[address] Sep, [facility] [address] [facility] [id number], [place] [address]- 76[address] Sep, [facility] [address] [address]- 2820 Sep, [facility] [address] [facility] [id number] Sep, [facility] [address]65[address], [place] [address]- 8542 Sep, [facility] [address] [facility]] [id number], [place] [address]- 3105 Jan, [facility] [address] [facility] [id number] Jan, [facility] [address] [facility]] [id number], [place] [address]- 2113 Aug, [facility] [address] [facility] [id number], [place] [address]- 4676 Aug, [facility] [address] [facility] [id number], [place] [address]- 7[address] Aug, IMMUNIZATIONS No Known Immunizations SOCIAL HISTORY Never Assessed REASON FOR VISIT lung problems, SOB with exertion----Pamela f/u heart cath 02/26/18 VC, Dr. Mckenzie PLAN OF CARE VITAL SIGNS Height 65 in 2018-03-07 Weight 175 lbs 2018-03-07 Temperature 97.5 degrees Fahrenheit 2018-03-07 Heart Rate 60 bpm 2018-03-07 Respiratory Rate 20 2018-03-07 Oximetry 96 % 2018-03-07 BMI 29.12 kg/m2 2018-03-07 Blood pressure systolic 124 mmHg 2018-03-07 Blood pressure diastolic 80 mmHg 2018-03-07 MEDICATIONS Medication Instructions Dosage Frequency Start Date End Date Duration Status Aspirin 81 81 MG Orally Once a day 1 tablet 24h Active ProAir HFA 108 (90 Base) MCG/ACT Inhalation every 4-6 hours as needed 1-2 puffs Active Qvar 40 MCG/ACT Inhalation Twice a day 1 puff 12h 18 Feb, 2018 Active Metoprolol Succinate ER 25 MG Orally Once a day 1 tablet 24h Active Lisinopril 10 mg Orally Once a day 1 tablet in the morning 24h Active Brilinta 90 MG Orally Twice a day 1 tablet 12h Active Atorvastatin Calcium 80 MG Orally Once a day 1 tablet at bedtime 24h Active RESULTS No Results PROCEDURES Procedure Date Ordered Result Body Site X-RAY EXAM CHEST 2 VIEWS March 07, 2018 COMPREHEN METABOLIC PANEL March 07, 2018 LIPID PANEL March 07, 2018 VENIPUNCT, ROUTINE* March 07, 2018 COMPLETE CBC W/AUTO DIFF WBC March 07, 2018 INSTRUCTIONS MEDICATIONS ADMINISTERED No Known Medications [...]
--- OUTSIDE RECORDS SUMMARY | 2018-08-16 15:03 | XMS REPORT ---
Author Author BALBINA MOSES Organization [facility] Address [address] [place] [address] Care Team Providers Care Investment Broker Name Role Phone BALBINA MOSES Unavailable PROBLEMS Type Condition ICD9-CM Code [id number] Code Onset Dates Condition Status SNOMED Code Problem Coronary artery disease involving [place] coronary artery of [place] heart without angina pectoris I25.10 Active 2362988981473 Problem Asthma J45.909 Active 200413218 Problem Low back pain M54.5 Active 950702154 Problem Insomnia G47.00 Active 507336147 Problem Restless legs syndrome G25.81 Active 729562532 ALLERGIES Substance Reaction Event Type Date Status Vancomycin HCl Unknown Drug Allergy Jan, Active Sulfamethoxazole-Trimethoprim Unknown Drug Allergy Jan, Active ENCOUNTERS Encounter Location Date Diagnosis [place] [id number] [place] [address] May, [facility] [address] [place] [address] March, SOB (shortness of breath) R06.02 [facility] [id number] [place] [address] Feb, SOB (shortness of breath) R06.02 ; Wheezing R06.2 ; Asthma J45.909 and Coronary artery disease involving [place] coronary artery of [place] heart without angina pectoris I25.10 [facility] [id number] [place] [address] Jan, Coronary artery disease involving [place] coronary artery of [place] heart without angina pectoris I25.10 [facility] [id number] [place] [address] Dec, Bronchitis J40 [facility] [address] [address] 14 Dec, 2017 Olecranon bursitis of left elbow M70.22 [facility] [address] [address] Nov, Mild asthma with acute exacerbation, unspecified whether persistent J45.901 and Pharyngitis, unspecified etiology J02.[address] [address] May, Gastroenteritis K52.9 [facility] [address] [address] Feb, [address] [address] Jan, Flu-like symptoms R68.89 ; Acute upper respiratory infection , unspecified J06.9 and Other viral agents as the cause of diseases classified elsewhere B97.89 [facility] [address] [address] May, Tinea corporis B35.4 and Tendonitis of elbow, right M77.8 [facility] [address] [address] March, Gastroenteritis K52.9 [facility] [address] [address] 12 Jan, 2016 Acute pharyngitis J02.9 and Acute streptococcal pharyngitis J02.[address] [address] 10 Jan, 2016 Flu-like symptoms R68.89 and Asthma J45.[address] [address] 03 Dec, 2015 Low back pain M54.5 ; Insomnia G47.00 and Restless legs syndrome G25.[address] [address] Nov, Low back pain M54.5 ; Insomnia G47.00 and Restless legs syndrome G25.81 [facility] [id number] [place] [address] 14 Feb, 2015 [facility] [address] [facility] [id number] [place] [address] Feb, [facility] [address] [facility] [id number] [place] [address], [place] [address] Jan, [facility] [address] [facility] [id number] [place] [address] Jan, [facility] [id number] [place] [address], [place] [address] Oct, [facility] [id number] [place] [address] Oct, [facility] [id number] [place] [address], [place] [address] Oct, [facility] [id number] [place] [address] Oct, [facility] [id number] [place] [address] Dec, [facility] [id number], [place] [address] Sep, [facility] [id number] [place] [address] Sep, [facility] [address] [facility] [id number], [place] [address] Sep, [facility] [id number] [place] [address] Sep, [facility] [address] [facility] [id number] Sep, [facility] [id number], [place] [address] Sep, [facility] [address] [facility] [id number], [place] [address] Jan, [facility] [address] [facility] [id number] [address] Jan, [facility] [address] [facility] [id number], [place] [address] Aug, [facility] [address] [facility] [id number], [place] [address] Aug, [facility] [address] [facility] [id number], [place] [address] Aug, IMMUNIZATIONS No Known Immunizations SOCIAL HISTORY Never Assessed REASON FOR VISIT Establish Care--[facility] [place] PLAN OF CARE VITAL SIGNS Height 65 in 2018-02-16 Weight 176.1 lbs 2018-02-16 Temperature 98.1 degrees Fahrenheit 2018-02-16 Heart Rate 60 bpm 2018-02-16 Respiratory Rate 18 2018-02-16 Oximetry on room air:97 % 2018-02-16 BMI 29.30 kg/m2 2018-02-16 Blood pressure systolic 108 mmHg 2018-02-16 Blood pressure diastolic 72 mmHg 2018-02-16 MEDICATIONS Medication Instructions Dosage Frequency Start Date End Date Duration Status Atorvastatin Calcium 80 MG Orally Once a day 1 tablet at bedtime 24h Active Gabapentin 300 MG Orally Once a day at night 1 capsule Dec, 30 day(s) Not-Taking Metoprolol Succinate ER 25 MG Orally Once a day 1 tablet 24h Active Brilinta 90 MG Orally Twice a day 1 tablet 12h Active Ondansetron 8 MG Orally every 8 hrs 1 tablet on the tongue and allow to dissolve 8h May, 05 days Not-Taking Amitriptyline HCl 25 MG Orally Once a day 1 tablet 24h Nov, 30 day(s) Not-Taking Ketoconazole 2 % Externally twice a day to affected area 1 application to affected area May, Not-Taking Mucinex 600 MG Orally every 12 hrs 1 tablet as needed 12h 10 Jan, 2016 Not-Taking Albuterol Sulfate 108 (90 Base) MCG/ACT Inhalation every 4 hrs 1 puff as needed 4h Jan, Not-Taking Mobic 7.5 MG Orally twice a day 1 tablet 12h Not-Taking Aspirin 81 81 MG Orally Once a day 1 tablet 24h Active Naprosyn 500 MG Orally every 12 hrs 1 tablet as needed 12h May, Not-Taking Baclofen 10 MG Orally Three times a day 1 tablet with food or milk 8h Not-Taking Lisinopril 10 mg Orally Once a day 1 tablet in the morning 24h Active Zofran 4 MG Orally Once a day 2 tablets 24h March, 03 days Not- Taking ProAir HFA 108 (90 Base) MCG/ACT Inhalation every 4-6 hours as needed 1-2 puffs Active Requip 2 MG Orally Once a day atnight 1 tablet 1 to 3 hours before bedtime Nov, 30 day(s) Not-Taking RESULTS No Results PROCEDURES No Known procedures [...]
--- OUTSIDE RECORDS SUMMARY | 2018-08-16 15:04 | XMS REPORT | Continuity of Care Document ---
Author Author [facility] Address Unknown Phone Unavailable Allergies Active Description Code Type Severity Reaction Onset Reported/Identified Relationship to Patient Clinical Status Yes vancomycin Drug Allergy 09/01/2010 Yes vancomycin Drug Allergy N/A N/A 09/01/2010 Yes Sulfa (Sulfonamide Antibiotics) [id number] Drug Allergy Unknown N/A 2015 Yes vancomycin [id number] Drug Allergy Unknown N/A 06/04/2016 Yes venom-wasp [id number] Drug Allergy Unknown N/A 06/04/2016 Yes wasp venom [id number] Drug Allergy Unknown N/A 06/04/2016 Yes amoxicillin [id number] Drug Allergy Mild HIVES 02/26/2018 Medications There is no data. Problems Date [...] 12/03/2008 DANIEL AMBRIZ MD 724.5 BACKACHE UNSPECIFIED 08/31/2010 Ot 041.12 METHICILLIN RESISTANT STAPHYLOCOCCUS AUR 08/31/2010 Ot 686.9 LOCAL SKIN INFECTION NOS 08/31/2010 Ot 845.00 SPRAIN OF ANKLE NOS 08/31/2010 Ot 959.7 LOWER LEG INJURY NOS 08/31/2010 Ot E000.8 OTHER EXTERNAL CAUSE STATUS 08/31/2010 Ot E849.0 ACCIDENT IN HOME 08/31/2010 Ot E884.9 FALL-1 LEVEL TO OT NEC 09/01/2010 KLEBER HILARIO DO V58.31 WOUND DRESSING [...] DANIEL AMBRIZ MD 719.41 SHOULDER JOINT PAIN 05/19/2012 Ot 923.3 CONTUSION OF FINGER 05/19/2012 Ot 959.5 FINGER INJURY NOS 05/19/2012 Ot E000.0 CIVILIAN ACTIVITY DONE FOR INCOME OR PAY 05/19/2012 Ot E849.3 ACC ON INDUSTR PREMISES 05/19/2012 Ot E919.8 MACHINERY ACCIDENT [facility] 09/21/2012 KLEBER HILARIO DO 782.2 Nodules - [...] HERBERT PABLO APRN R 786.09 DYSPNEA 12/29/2012 ABIMAEL HILARIO DOA K 466.0 BRONCHITIS, ACUTE 12/29/2012 YANELIS BATISTAABIMAELA K 786.09 DYSPNEA 12/29/2012 DANIEL AMBRIZ MD 466.0 BRONCHITIS, ACUTE 12/29/2012 DANIEL AMBRIZ MD 786.09 DYSPNEA 10/25/2013 HERBERT PABLO APRN R 380.4 CERUMEN IMPACTION 10/25/2013 ABIMAEL HILARIO DOA K 380.4 CERUMEN IMPACTION 10/25/2013 DANIEL AMBRIZ MD 380.4 CERUMEN IMPACTION 10/29/2013 KLEBER HILARIO DO K 382.9 OTITIS MEDIA 10/29/2013 DANIEL AMBRIZ MD 382.9 OTITIS MEDIA 02/12/2015 DANIEL AMBRIZ MD 401.1 BENIGN ESSENTIAL HYPERTENSION 06/04/2016 BALBINA ATKINS DO Ot H10.211 ACUTE TOXIC CONJUNCTIVITIS, RIGHT EYE 06/04/2016 BALBINA ATKINS DO Ot T54.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 06/06/2016 BALBINA ATKINS DO Ot H10.211 ACUTE TOXIC CONJUNCTIVITIS, RIGHT EYE 06/06/2016 BALBINA ATKINS DO Ot T54.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 01/04/2017 DAMARI LOPEZ MD Ot M54.5 LOW BACK PAIN 01/09/2017 DAMARI LOPEZ MD Ot M54.5 LOW BACK PAIN 01/17/2017 DAMARI LOPEZ MD Ot M54.5 LOW BACK PAIN 01/19/2017 DAMARI LOPEZ MD Ot M54.5 LOW BACK PAIN 05/12/2017 DAMARI LOPEZ MD Ot M54.5 LOW BACK PAIN 05/25/2017 DAMARI LOPEZ MD Ot M54.5 LOW BACK PAIN 06/23/2017 DAMARI LOPEZ MD Ot M54.5 LOW BACK PAIN 08/28/2017 DAMARI LOPEZ MD Ot M54.5 LOW BACK PAIN 08/28/2017 SIMONE SANDERS MD Ot K62.5 HEMORRHAGE OF ANUS AND RECTUM 08/28/2017 SIMONE SANDERS MD Ot M54.5 LOW BACK PAIN 08/28/2017 SIMONE SANDERS MD Ot Z87.828 PERSONAL HISTORY OF OTH (HEALED) PHYSICA 08/30/2017 SIMONE SANDERS MD Ot K62.5 HEMORRHAGE OF ANUS AND RECTUM 08/30/2017 SIMONE SANDERS MD Ot M54.5 LOW BACK PAIN 08/30/2017 SIMONE SANDERS MD Ot Z87.828 PERSONAL HISTORY OF OTH (HEALED) PHYSICA 08/30/2017 SIMONE SANDERS MD Ot K62.5 HEMORRHAGE OF ANUS AND RECTUM 08/30/2017 SIMONE SANDERS MD Ot M54.5 LOW BACK PAIN 08/30/2017 SIMONE SANDERS MD Ot Z87.828 PERSONAL HISTORY OF OTH (HEALED) PHYSICA 09/16/2017 DAMARI LOPEZ MD Ot M54.5 LOW BACK PAIN 09/21/2017 GRAYSON LANGE MD Ot K62.5 HEMORRHAGE OF ANUS AND RECTUM 09/21/2017 GRAYSON LANGE MD Ot Z01.818 ENCOUNTER FOR OTHER PREPROCEDURAL EXAMIN 09/22/2017 GRAYSON LANGE MD Ot K62.5 HEMORRHAGE OF ANUS AND RECTUM 09/22/2017 GRAYSON LANGE MD Ot Z01.818 ENCOUNTER FOR OTHER PREPROCEDURAL EXAMIN 09/25/2017 GARYSON LANGE MD Ot I10 ESSENTIAL (PRIMARY) HYPERTENSION 09/25/2017 GRAYSON LANGE MD Ot I25.2 OLD MYOCARDIAL INFARCTION 09/25/2017 GRAYSON LANGE MD Ot J45.909 UNSPECIFIED ASTHMA, UNCOMPLICATED 09/25/2017 GRAYSON LANGE MD Ot K64.8 OTHER HEMORRHOIDS 09/25/2017 ANISA DAVIES, GRAYSON Kenney Ot Z80.0 FAMILY HISTORY OF MALIGNANT NEOPLASM OF 09/25/2017 GRAYSON LANGE MD Ot Z83.71 FAMILY HISTORY OF COLONIC POLYPS 09/25/2017 GRAYSON LANGE MD Ot Z87.891 PERSONAL HISTORY OF NICOTINE DEPENDENCE 10/24/2017 DAMARI LOPEZ MD Ot M54.5 LOW BACK PAIN 11/19/2017 DAMARI LOPEZ MD Ot M54.5 LOW BACK PAIN 12/22/2017 DAMARI LOPEZ MD Ot M54.5 LOW BACK PAIN 12/22/2017 SIMONE SANDERS MD Ot I10 ESSENTIAL (PRIMARY) HYPERTENSION 12/22/2017 SIMONE SANDERS MD J Ot I25.2 OLD MYOCARDIAL INFARCTION 12/22/2017 SIMONE SANDERS MD J Ot J45.909 UNSPECIFIED ASTHMA, UNCOMPLICATED 12/22/2017 SIMONE SANDERS MD J Ot M54.12 RADICULOPATHY, CERVICAL REGION 12/22/2017 ANDRES SANDERS MDUS J Ot R07.89 OTHER CHEST PAIN 12/22/2017 SIMONE SANDERS MD J Ot R20.2 PARESTHESIA OF SKIN 12/22/2017 SIMONE SANDERS MD J Ot Z79.52 TELEGRAPHIC TYPEWRITER REPAIRER (CURRENT) USE OF SYSTEMIC STER 12/22/2017 SIMONE SANDERS MD J Ot Z87.891 PERSONAL HISTORY OF NICOTINE DEPENDENCE 12/22/2017 SIMONE SANDERS MD J Ot Z88.1 ALLERGY STATUS TO OTHER ANTIBIOTIC AGENT 12/22/2017 SIMONE SANDERS MD J Ot Z88.2 ALLERGY STATUS TO SULFONAMIDES STATUS 12/22/2017 SIMONE SANDERS MD J Ot Z91.038 OTHER INSECT ALLERGY STATUS 12/22/2017 DAMARI LOPEZ MD J Ot M54.5 LOW BACK PAIN 12/25/2017 SIMONE SANDERS MD J Ot I25.2 OLD MYOCARDIAL INFARCTION 12/25/2017 SIMONE SANDERS MD J Ot R07.89 OTHER CHEST PAIN 12/25/2017 SIMONE SANDERS MD J Ot I10 ESSENTIAL (PRIMARY) HYPERTENSION 12/25/2017 SIMONE SANDERS MD J Ot I25.2 OLD MYOCARDIAL INFARCTION 12/25/2017 SIMONE SANDERS MD J Ot J45.909 UNSPECIFIED ASTHMA, UNCOMPLICATED 12/25/2017 SIMONE SANDERS MD J Ot M54.12 RADICULOPATHY, CERVICAL REGION 12/25/2017 SIMONE SANDERS MD J Ot R07.89 OTHER CHEST PAIN 12/25/2017 SIMONE SANDERS MD J Ot R20.2 PARESTHESIA OF SKIN 12/25/2017 SIMONE SANDERS MD J Ot Z79.52 ASSISTED (CURRENT) USE OF SYSTEMIC STER 12/25/2017 SIMONE SANDERS MD J Ot Z87.891 PERSONAL HISTORY OF NICOTINE DEPENDENCE 12/25/2017 SIMONE SANDERS MD J Ot Z88.1 ALLERGY STATUS TO OTHER ANTIBIOTIC AGENT 12/25/2017 SIMONE SANDERS MD J Ot Z88.2 ALLERGY STATUS TO SULFONAMIDES STATUS 12/25/2017 MARILYN DAVIES, SIMONE Romario Ot Z91.038 OTHER INSECT ALLERGY STATUS 01/17/2018 Ot 722.93 01/17/2018 Ot 805.2 01/17/2018 Ot E887 01/17/2018 JESSICA DAVIES, DAMARI Doss Ot M54.5 LOW BACK PAIN 01/23/2018 SULLY DAVIES, Anne Marie DELANEY Ot I10 ESSENTIAL (PRIMARY) HYPERTENSION 01/23/2018 SULLY DAVIES, Anne Marie DELANEY Ot R07.9 CHEST PAIN, UNSPECIFIED 01/23/2018 SULLY DAVIES, Anne Marie DELANEY Ot Z72.0 TOBACCO USE 01/29/2018 SULLY DAVIES, Anne Marie DELANEY Ot I10 ESSENTIAL (PRIMARY) HYPERTENSION 01/29/2018 SULLY DAVIES, Anne Marie DELANEY Ot R07.9 CHEST PAIN, UNSPECIFIED 01/29/2018 SULLY DAVIES, Anne Marie DELANEY Ot Z72.0 TOBACCO USE 01/29/2018 SULLY DAVIES, Anne Marie DELANEY Ot I10 ESSENTIAL (PRIMARY) HYPERTENSION 01/29/2018 SULLY DAVIES, Anne Marie DELANEY Ot R07.9 CHEST PAIN, UNSPECIFIED 01/29/2018 SULLY DAVIES, Anne Marie DELANEY Ot Z72.0 TOBACCO USE 02/01/2018 SULLY DAVIES, Anne Marie DELANEY Ot I10 ESSENTIAL (PRIMARY) HYPERTENSION 02/01/2018 SULLY DAVIES, Anne Marie DELANEY Ot R07.9 CHEST PAIN, UNSPECIFIED 02/01/2018 SULLY DAVIES, Anne Marie DELANEY Ot Z72.0 TOBACCO USE 02/02/2018 SULLY DAVIES, Anne Marie DELANEY Ot I10 ESSENTIAL (PRIMARY) HYPERTENSION 02/02/2018 SULLY DAVIES, Anne Marie DELANEY Ot R07.9 CHEST PAIN, UNSPECIFIED 02/02/2018 SULLY DAVIES, Anne Marie DELANEY Ot Z72.0 TOBACCO USE 02/05/2018 SULLY DAVIES, Anne Marie DELANEY Ot I10 ESSENTIAL (PRIMARY) HYPERTENSION 02/05/2018 SULLY DAVIES, Anne Marie DELANEY Ot R07.9 CHEST PAIN, UNSPECIFIED 02/05/2018 SULLY DAVIES, Anne Marie DELANEY Ot Z72.0 TOBACCO USE 02/05/2018 Anne Marie VIRK MD Ot I10 ESSENTIAL (PRIMARY) HYPERTENSION 02/05/2018 SULLY DAVIES, Anne Marie DELANEY Ot R07.9 CHEST PAIN, UNSPECIFIED 02/05/2018 Anne Marie VIRK MD Ot Z72.0 TOBACCO USE 02/07/2018 SULLY DAVIES, Anne Marie DELANEY Ot I10 ESSENTIAL (PRIMARY) HYPERTENSION 02/07/2018 SULLY DAVIES, Anne Marie DELANEY Ot R07.9 CHEST PAIN, UNSPECIFIED 02/07/2018 SULLY DAVIES, Anne Marie DELNAEY Ot Z72.0 TOBACCO USE 02/07/2018 SULLY DAVIES, Anne Marie DELANEY Ot I10 ESSENTIAL (PRIMARY) HYPERTENSION 02/07/2018 Anne Marie VIRK MD Ot R07.9 CHEST PAIN, UNSPECIFIED 02/07/2018 Anne Marie VIRK MD Ot Z72.0 TOBACCO USE 02/09/2018 Anne Marie VIRK MD Ot F17.210 NICOTINE DEPENDENCE, CIGARETTES, UNCOMPL 02/09/2018 Anne Marie VIRK MD Ot I10 ESSENTIAL (PRIMARY) HYPERTENSION 02/09/2018 Anne Marie VIRK MD Ot I25.10 ATHSCL HEART DISEASE OF [place] CORONARY 02/09/2018 Anne Marie VIRK MD Ot Z88.1 ALLERGY STATUS TO OTHER ANTIBIOTIC AGENT 02/09/2018 Anne Marie VIRK MD Ot Z88.2 ALLERGY STATUS TO SULFONAMIDES STATUS 02/14/2018 Anne Marie VIRK MD Ot I10 ESSENTIAL (PRIMARY) HYPERTENSION 02/14/2018 Anne Marie VIRK MD Ot R07.9 CHEST PAIN, UNSPECIFIED 02/14/2018 Anne Marie VIRK MD Ot Z72.0 TOBACCO USE 02/19/2018 Anne Marie VIRK MD Ot F17.210 NICOTINE DEPENDENCE, CIGARETTES, UNCOMPL 02/19/2018 Anne Marie VIRK MD Ot I10 ESSENTIAL (PRIMARY) HYPERTENSION 02/19/2018 Anne Marie VIRK MD Ot I25.10 ATHSCL HEART DISEASE OF [place] CORONARY 02/19/2018 Anne Marie VIRK MD Ot Z88.1 ALLERGY STATUS TO OTHER ANTIBIOTIC AGENT 02/19/2018 Anne Marie VIRK MD Ot Z88.2 ALLERGY STATUS TO SULFONAMIDES STATUS 02/26/2018 Anne Marie VIRK MD Ot E78.5 HYPERLIPIDEMIA, UNSPECIFIED 02/26/2018 Anne Marie VIRK MD Ot F17.220 NICOTINE DEPENDENCE, CHEWING TOBACCO, UN 02/26/2018 Anne Marie VIRK MD Ot I10 ESSENTIAL (PRIMARY) HYPERTENSION 02/26/2018 Anne Marie VIRK MD Ot R07.9 CHEST PAIN, UNSPECIFIED 02/26/2018 Anne Marie VIRK MD Ot Z79.82 ASSISTED (CURRENT) USE OF ASPIRIN 02/26/2018 Anne Marie VIRK MD Ot Z79.899 OTHER TELEGRAPHIC TYPEWRITER REPAIRER (CURRENT) DRUG THERAPY 02/26/2018 Anne Marie VIRK MD Ot Z88.1 ALLERGY STATUS TO OTHER ANTIBIOTIC AGENT 02/26/2018 Anne Marie VIRK MD Ot Z88.2 ALLERGY STATUS TO SULFONAMIDES STATUS 02/28/2018 Anne Marie VIRK MD Ot E78.5 HYPERLIPIDEMIA, UNSPECIFIED 02/28/2018 Anne Marie VIRK MD Ot F17.220 NICOTINE DEPENDENCE, CHEWING TOBACCO, UN 02/28/2018 Anne Marie VIRK MD Ot I10 ESSENTIAL (PRIMARY) HYPERTENSION 02/28/2018 Anne Marie VIRK MD Ot R07.9 CHEST PAIN, UNSPECIFIED 02/28/2018 Anne Marie VIRK MD Ot Z79.82 ASSISTED (CURRENT) USE OF ASPIRIN 02/28/2018 Anne Marie VIRK MD Ot Z79.899 OTHER TELEGRAPHIC TYPEWRITER REPAIRER (CURRENT) DRUG THERAPY 02/28/2018 Anne Marie VIRK MD Ot Z88.1 ALLERGY STATUS TO OTHER ANTIBIOTIC AGENT 02/28/2018 Anne Marie VIRK MD Ot Z88.2 ALLERGY STATUS TO SULFONAMIDES STATUS 05/02/2018 Anne Marie VIRK MD Ot Z48.812 ENCNTR FOR SURGICAL AFTCR FOLLOWING SURG 05/02/2018 Anne Marie VIRK MD Ot Z95.5 PRESENCE OF CORONARY ANGIOPLASTY IMPLANT 05/12/2018 DAMARI LOPEZ MD Ot M54.5 LOW BACK PAIN 05/13/2018 SIMONE SANDERS MD Ot E78.00 PURE HYPERCHOLESTEROLEMIA, UNSPECIFIED 05/13/2018 SIMONE SANDERS MD Ot F17.220 NICOTINE DEPENDENCE, CHEWING TOBACCO, UN 05/13/2018 SIMONE SANDERS MD Ot I10 ESSENTIAL (PRIMARY) HYPERTENSION 05/13/2018 SIMONE SANDERS MD Ot I25.2 OLD MYOCARDIAL INFARCTION 05/13/2018 SIMONE SANDERS MD Ot J44.9 CHRONIC OBSTRUCTIVE PULMONARY DISEASE, U 05/13/2018 SIMONE SANDERS MD Ot R07.89 OTHER CHEST PAIN 05/13/2018 SIMONE SANDERS MD Ot Z79.82 TELEGRAPHIC TYPEWRITER REPAIRER (CURRENT) USE OF ASPIRIN 05/13/2018 SIMONE SANDERS MD Ot Z87.19 PERSONAL HISTORY OF OTHER DISEASES OF TH 05/13/2018 SIMONE SANDERS MD, Ot Z88.1 ALLERGY STATUS TO OTHER ANTIBIOTIC AGENT 05/13/2018 SIMONE SANDERS MD Ot Z88.2 ALLERGY STATUS TO SULFONAMIDES STATUS 05/13/2018 SIMONE SANDERS MD Ot Z91.038 OTHER INSECT ALLERGY STATUS Procedures Code Description [place] [address] EXCISION BENIGN LESION 2.1- 3 cm (specify location in [facility] description) 09/22/2012 32519 CERUMEN REMOVAL 10/29/2013 75658 ROUTINE VENIPUNCTURE 02/12/2015 70632 CMP 02/12/2015 [id number] GFR CALC (RESULT ONLY) 02/12/2015 Results Test Result Range Complete blood count (CBC) with automated white blood cell (WBC) differential - 08/28/17 19:37 Blood leukocytes automated count (number/volume) 7.2 10*3/uL 4.3-11.0 Blood erythrocytes automated count (number/volume) 4.20 10*6/uL 4.35-5.85 Venous blood hemoglobin measurement (mass/volume) 13.9 g/dL 13.3-17.7 Blood hematocrit (volume fraction) 40 % 40-54 Automated erythrocyte mean corpuscular volume 95 [foz_us] 80-99 Automated erythrocyte mean corpuscular hemoglobin (mass per erythrocyte) 33 pg 25-34 Automated erythrocyte mean corpuscular hemoglobin concentration measurement ( mass/volume) 35 g/dL 32-36 Automated erythrocyte distribution width ratio 12.3 % 10.0-14.5 Automated blood platelet count (count/volume) 203 10*3/uL 130-400 Automated blood platelet mean volume measurement 10.7 [foz_us] 7.4-10.4 Automated blood neutrophils/100 leukocytes 59 % 42-75 Automated blood lymphocytes/100 leukocytes 20 % 12-44 Blood monocytes/100 leukocytes 9 % 0-12 Automated blood eosinophils/100 leukocytes 11 % 0-10 Automated blood basophils/100 leukocytes 1 % 0-10 Blood neutrophils automated count (number/volume) 4.3 10*3 1.8-7.8 Blood lymphocytes automated count (number/volume) 1.5 10*3 1.0-4.0 Blood monocytes automated count (number/volume) 0.7 10*3 0.0-1.0 Automated eosinophil count 0.8 10*3/uL 0.0-0.3 Automated blood basophil count (count/volume) 0.1 10*3/uL 0.0-0.1 PT panel in platelet poor plasma by coagulation assay - 08/28/17 19:37 Prothrombin time (PT) in platelet poor plasma by coagulation assay 13.9 s 12.2-14.7 INR in platelet poor plasma or blood by coagulation assay 1.1 0.8-1.4 Activated partial thromboplastin time (aPTT) in platelet poor plasma bycoagulation assay - 08/28/17 19:37 Activated partial thromboplastin time (aPTT) in platelet poor plasma bycoagulation assay 32 s 24-35 Comprehensive metabolic panel - 08/28/17 19:37 Serum or plasma sodium measurement (moles/volume) 140 mmol/L 135-145 Serum or plasma potassium measurement (moles/volume) 3.8 mmol/L 3.6-5.0 Serum or plasma chloride measurement (moles/volume) 108 mmol/L 98-107 Carbon dioxide 20 mmol/L 21-32 Serum or plasma anion gap determination (moles/volume) 12 mmol/L 5-14 Serum or plasma urea nitrogen measurement (mass/volume) 12 mg/dL 7-18 Serum or plasma creatinine measurement (mass/volume) 0.92 mg/dL 0.60-1.30 Serum or plasma urea nitrogen/creatinine mass ratio 13 NRG Serum or plasma creatinine measurement with calculation of estimated glomerular filtration rate > NRG Serum or plasma glucose measurement (mass/volume) 197 mg/dL 70-105 Serum or plasma calcium measurement (mass/volume) 8.7 mg/dL 8.5-10.1 Serum or plasma total bilirubin measurement (mass/volume) 0.5 mg/dL 0.1-1.0 Serum or plasma alkaline phosphatase measurement (enzymatic activity/volume) 55 U/L 40-136 Serum or plasma aspartate aminotransferase measurement (enzymatic activity/ volume) 27 U/L 5-34 Serum or plasma alanine aminotransferase measurement (enzymatic activity/volume ) 29 U/L 0-55 Serum or plasma protein measurement (mass/volume) 7.0 g/dL 6.4-8.2 Serum or plasma albumin measurement (mass/volume) 4.0 g/dL 3.2-4.5 Complete urinalysis with reflex to culture - 08/28/17 20:06 Urine color determination YELLOW NRG Urine clarity determination CLEAR NRG Urine pH measurement by test strip 5 5-9 Specific gravity of urine by test strip 1.015 1.016- 1.022 Urine protein assay by test strip, semi-quantitative NEGATIVE NEGATIVE Urine glucose detection by automated test strip NEGATIVE NEGATIVE Erythrocytes detection in urine sediment by light microscopy NEGATIVE NEGATIVE Urine ketones detection by automated test strip NEGATIVE NEGATIVE Urine nitrite detection by test strip NEGATIVE NEGATIVE Urine total bilirubin detection by test strip NEGATIVE NEGATIVE Urine urobilinogen measurement by automated test strip (mass/volume) NORMAL NORMAL Urine leukocyte esterase detection by dipstick NEGATIVE NEGATIVE Automated urine sediment erythrocyte count by microscopy (number/high power field) NONE NRG Automated urine sediment leukocyte count by microscopy (number/high power field ) NONE NRG Bacteria detection in urine sediment by light microscopy NONE NRG Squamous epithelial cells detection in urine sediment by light microscopy RARE NRG Crystals detection in urine sediment by light microscopy NONE NRG Casts detection in urine sediment by light microscopy NONE NRG Mucus detection in urine sediment by light microscopy NEGATIVE NRG Complete urinalysis with reflex to culture NO NRG Blood lactic acid measurement (moles/volume) - 08/28/17 20:13 Blood lactic acid measurement (moles/volume) 1.63 mmol/L 0.50-2.00 Urine drug screening test - 08/28/17 20:13 Urine phencyclidine detection by screening method NEGATIVE NEGATIVE Urine benzodiazepines detection by screening method POSITIVE NEGATIVE Urine cocaine detection NEGATIVE NEGATIVE Urine amphetamines detection by screening method NEGATIVE NEGATIVE Urine methamphetamine detection by screening method NEGATIVE NEGATIVE Urine cannabinoids detection by screening method NEGATIVE NEGATIVE Urine opiates detection by screening method POSITIVE NEGATIVE Urine barbiturates detection NEGATIVE NEGATIVE Screening urine tricyclic antidepressants detection NEGATIVE NEGATIVE Urine methadone detection by screening method NEGATIVE NEGATIVE Urine oxycodone detection NEGATIVE NEGATIVE Urine propoxyphene detection NEGATIVE NEGATIVE Blood type T Indirect antibody screen panel - 08/28/17 20:13 ABO+Rh group BP NRG Transfusion band number [id number] NRG Blood group antibody screen NEGATIVE NRG Complete blood count (CBC) with automated white blood cell (WBC) differential - 12/22/17 16:39 Blood leukocytes automated count (number/volume) 6.8 10*3/uL 4.3-11.0 Blood erythrocytes automated count (number/volume) 4.36 10*6/uL 4.35-5.85 Venous blood hemoglobin measurement (mass/volume) 14.8 g/dL 13.3-17.7 Blood hematocrit (volume fraction) 41 % 40-54 Automated erythrocyte mean corpuscular volume 93 [foz_us] 80-99 Automated erythrocyte mean corpuscular hemoglobin (mass per erythrocyte) 34 pg 25-34 Automated erythrocyte mean corpuscular hemoglobin concentration measurement ( mass/volume) 36 g/dL 32-36 Automated erythrocyte distribution width ratio 12.3 % 10.0-14.5 Automated blood platelet count (count/volume) 230 10*3/uL 130-400 Automated blood platelet mean volume measurement 10.7 [foz_us] 7.4-10.4 Automated blood neutrophils/100 leukocytes 61 % 42-75 Automated blood lymphocytes/100 leukocytes 26 % 12-44 Blood monocytes/100 leukocytes 6 % 0-12 Automated blood eosinophils/100 leukocytes 7 % 0-10 Automated blood basophils/100 leukocytes 0 % 0-10 Blood neutrophils automated count (number/volume) 4.2 10*3 1.8-7.8 Blood lymphocytes automated count (number/volume) 1.8 10*3 1.0-4.0 Blood monocytes automated count (number/volume) 0.4 10*3 0.0-1.0 Automated eosinophil count 0.5 10*3/uL 0.0-0.3 Automated blood basophil count (count/volume) 0.0 10*3/uL 0.0-0.1 PT panel in platelet poor plasma by coagulation assay - 12/22/17 16:39 Prothrombin time (PT) in platelet poor plasma by coagulation assay 14.0 s 12.2-14.7 INR in platelet poor plasma or blood by coagulation assay 1.1 0.8-1.4 Activated partial thromboplastin time (aPTT) in platelet poor plasma bycoagulation assay - 12/22/17 16:39 Activated partial thromboplastin time (aPTT) in platelet poor plasma bycoagulation assay 33 s 24-35 Comprehensive metabolic panel - 12/22/17 16:39 Serum or plasma sodium measurement (moles/volume) 140 mmol/L 135-145 Serum or plasma potassium measurement (moles/volume) 3.6 mmol/L 3.6-5.0 Serum or plasma chloride measurement (moles/volume) 105 mmol/L 98-107 Carbon dioxide 24 mmol/L 21-32 Serum or plasma anion gap determination (moles/volume) 11 mmol/L 5-14 Serum or plasma urea nitrogen measurement (mass/volume) 10 mg/dL 7-18 Serum or plasma creatinine measurement (mass/volume) 0.92 mg/dL 0.60-1.30 Serum or plasma urea nitrogen/creatinine mass ratio 11 NRG Serum or plasma creatinine measurement with calculation of estimated glomerular filtration rate > NRG Serum or plasma glucose measurement (mass/volume) 158 mg/dL 70-105 Serum or plasma calcium measurement (mass/volume) 9.0 mg/dL 8.5-10.1 Serum or plasma total bilirubin measurement (mass/volume) 1.1 mg/dL 0.1-1.0 Serum or plasma alkaline phosphatase measurement (enzymatic activity/volume) 57 U/L 40-136 Serum or plasma aspartate aminotransferase measurement (enzymatic activity/ volume) 23 U/L 5-34 Serum or plasma alanine aminotransferase measurement (enzymatic activity/volume ) 19 U/L 0-55 Serum or plasma protein measurement (mass/volume) 7.5 g/dL 6.4-8.2 Serum or plasma albumin measurement (mass/volume) 4.4 g/dL 3.2-4.5 Magnesium - 12/22/17 16:39 Magnesium 2.1 mg/dL 1.8-2.4 Serum or plasma troponin i.cardiac measurement (mass/volume) - 12/22/17 16:39 Serum or plasma troponin i.cardiac measurement (mass/volume) < ng/ mL <0.30 Myoglobin, serum - 12/22/17 16:39 Myoglobin, serum 43.1 ng/mL 10.0-92.0 Serum or plasma troponin i.cardiac measurement (mass/volume) - 12/22/17 20:48 Serum or plasma troponin i.cardiac measurement (mass/volume) < ng/ mL <0.30 Automated blood complete blood count (hemogram) panel - 02/08/18 08:23 Blood leukocytes automated count (number/volume) 6.6 10*3/uL 4.3-11.0 Blood erythrocytes automated count (number/volume) 5.40 10*6/uL 4.35-5.85 Venous blood hemoglobin measurement (mass/volume) 15.9 g/dL 13.3-17.7 Blood hematocrit (volume fraction) 44 % 40-54 Automated erythrocyte mean corpuscular volume 81 [foz_us] 80-99 Automated erythrocyte mean corpuscular hemoglobin (mass per erythrocyte) 29 pg 25-34 Automated erythrocyte mean corpuscular hemoglobin concentration measurement ( mass/volume) 37 g/dL 32-36 Automated erythrocyte distribution width ratio 13.2 % 10.0-14.5 Automated blood platelet count (count/volume) 213 10*3/uL 130-400 Automated blood platelet mean volume measurement 10.3 [foz_us] 7.4-10.4 Automated blood complete blood count (hemogram) panel - 02/08/18 08:32 Blood leukocytes automated count (number/volume) 6.3 10*3/uL 4.3-11.0 Blood erythrocytes automated count (number/volume) 4.58 10*6/uL 4.35-5.85 Venous blood hemoglobin measurement (mass/volume) 15.4 g/dL 13.3-17.7 Blood hematocrit (volume fraction) 43 % 40-54 Automated erythrocyte mean corpuscular volume 94 [foz_us] 80-99 Automated erythrocyte mean corpuscular hemoglobin (mass per erythrocyte) 34 pg 25-34 Automated erythrocyte mean corpuscular hemoglobin concentration measurement ( mass/volume) 36 g/dL 32-36 Automated erythrocyte distribution width ratio 12.8 % 10.0-14.5 Automated blood platelet count (count/volume) 276 10*3/uL 130-400 Automated blood platelet mean volume measurement 10.2 [foz_us] 7.4-10.4 PT panel in platelet poor plasma by coagulation assay - 02/08/18 08:32 Prothrombin time (PT) in platelet poor plasma by coagulation assay 13.1 s 12.2-14.7 INR in platelet poor plasma or blood by coagulation assay 1.0 0.8-1.4 Activated partial thromboplastin time (aPTT) in platelet poor plasma bycoagulation assay - 02/08/18 08:32 Activated partial thromboplastin time (aPTT) in platelet poor plasma bycoagulation assay 29 s 24-35 Comprehensive metabolic panel - 02/08/18 08:32 Serum or plasma sodium measurement (moles/volume) 139 mmol/L 135-145 Serum or plasma potassium measurement (moles/volume) 4.2 mmol/L 3.6-5.0 Serum or plasma chloride measurement (moles/volume) 105 mmol/L 98-107 Carbon dioxide 27 mmol/L 21-32 Serum or plasma anion gap determination (moles/volume) 7 mmol/L 5-14 Serum or plasma urea nitrogen measurement (mass/volume) 13 mg/dL 7-18 Serum or plasma creatinine measurement (mass/volume) 0.79 mg/dL 0.60-1.30 Serum or plasma urea nitrogen/creatinine mass ratio 16 NRG Serum or plasma creatinine measurement with calculation of estimated glomerular filtration rate > NRG Serum or plasma glucose measurement (mass/volume) 95 mg/dL 70-105 Serum or plasma calcium measurement (mass/volume) 9.1 mg/dL 8.5-10.1 Serum or plasma total bilirubin measurement (mass/volume) 0.8 mg/dL 0.1-1.0 Serum or plasma alkaline phosphatase measurement (enzymatic activity/volume) 56 U/L 40-136 Serum or plasma aspartate aminotransferase measurement (enzymatic activity/ volume) 24 U/L 5-34 Serum or plasma alanine aminotransferase measurement (enzymatic activity/volume ) 27 U/L 0-55 Serum or plasma protein measurement (mass/volume) 7.2 g/dL 6.4-8.2 Serum or plasma albumin measurement (mass/volume) 4.4 g/dL 3.2-4.5 Lipid 1996 panel - 02/08/18 08:32 Serum or plasma triglyceride measurement (mass/volume) 118 mg/dL <150 Serum or plasma cholesterol measurement (mass/volume) 218 mg/dL < 200 Serum or plasma cholesterol in HDL measurement (mass/volume) 56 mg/ dL 40-60 Cholesterol in LDL [mass/volume] in serum or plasma by direct assay 144 mg/dL 1-129 Serum or plasma cholesterol in VLDL measurement (mass/volume) 24 mg/ dL 5-40 Methicillin resistant Staphylococcus aureus (MRSA) screening culture - 08:33 Methicillin resistant Staphylococcus aureus (MRSA) screening culture NEG NRG Serum or plasma troponin i.cardiac measurement (mass/volume) - 02/08/18 13:18 Serum or plasma troponin i.cardiac measurement (mass/volume) < ng/ mL <0.30 Serum or plasma troponin i.cardiac measurement (mass/volume) - 02/08/18 19:00 Serum or plasma troponin i.cardiac measurement (mass/volume) < ng/ mL <0.30 Automated blood complete blood count (hemogram) panel - 02/09/18 03:15 Blood leukocytes automated count (number/volume) 6.8 10*3/uL 4.3-11.0 Blood erythrocytes automated count (number/volume) 3.71 10*6/uL 4.35-5.85 Venous blood hemoglobin measurement (mass/volume) 12.7 g/dL 13.3-17.7 Blood hematocrit (volume fraction) 36 % 40-54 Automated erythrocyte mean corpuscular volume 97 [foz_us] 80-99 Automated erythrocyte mean corpuscular hemoglobin (mass per erythrocyte) 34 pg 25-34 Automated erythrocyte mean corpuscular hemoglobin concentration measurement ( mass/volume) 36 g/dL 32-36 Automated erythrocyte distribution width ratio 13.1 % 10.0-14.5 Automated blood platelet count (count/volume) 233 10*3/uL 130-400 Automated blood platelet mean volume measurement 10.4 [foz_us] 7.4-10.4 Whole blood basic metabolic panel - 02/09/18 03:15 Serum or plasma sodium measurement (moles/volume) 138 mmol/L 135-145 Serum or plasma potassium measurement (moles/volume) 4.1 mmol/L 3.6-5.0 Serum or plasma chloride measurement (moles/volume) 109 mmol/L 98-107 Carbon dioxide 23 mmol/L 21-32 Serum or plasma anion gap determination (moles/volume) 6 mmol/L 5-14 Serum or plasma urea nitrogen measurement (mass/volume) 11 mg/dL 7-18 Serum or plasma creatinine measurement (mass/volume) 0.76 mg/dL 0.60-1.30 Serum or plasma urea nitrogen/creatinine mass ratio 14 NRG Serum or plasma creatinine measurement with calculation of estimated glomerular filtration rate > NRG Serum or plasma glucose measurement (mass/volume) 95 mg/dL 70-105 Serum or plasma calcium measurement (mass/volume) 8.1 mg/dL 8.5-10.1 Automated blood complete blood count (hemogram) panel - 02/26/18 12:41 Blood leukocytes automated count (number/volume) 7.0 10*3/uL 4.3-11.0 Blood erythrocytes automated count (number/volume) 4.43 10*6/uL 4.35-5.85 Venous blood hemoglobin measurement (mass/volume) 14.8 g/dL 13.3-17.7 Blood hematocrit (volume fraction) 42 % 40-54 Automated erythrocyte mean corpuscular volume 94 [foz_us] 80-99 Automated erythrocyte mean corpuscular hemoglobin (mass per erythrocyte) 33 pg 25-34 Automated erythrocyte mean corpuscular hemoglobin concentration measurement ( mass/volume) 36 g/dL 32-36 Automated erythrocyte distribution width ratio 12.4 % 10.0-14.5 Automated blood platelet count (count/volume) 260 10*3/uL 130-400 Automated blood platelet mean volume measurement 10.3 [foz_us] 7.4-10.4 PT panel in platelet poor plasma by coagulation assay - 02/26/18 12:41 Prothrombin time (PT) in platelet poor plasma by coagulation assay 14.9 s 12.2-14.7 INR in platelet poor plasma or blood by coagulation assay 1.2 0.8-1.4 Activated partial thromboplastin time (aPTT) in platelet poor plasma bycoagulation assay - 02/26/18 12:41 Activated partial thromboplastin time (aPTT) in platelet poor plasma bycoagulation assay 30 s 24-35 Comprehensive metabolic panel - 02/26/18 12:41 Serum or plasma sodium measurement (moles/volume) 141 mmol/L 135-145 Serum or plasma potassium measurement (moles/volume) 4.2 mmol/L 3.6-5.0 Serum or plasma chloride measurement (moles/volume) 109 mmol/L 98-107 Carbon dioxide 23 mmol/L 21-32 Serum or plasma anion gap determination (moles/volume) 9 mmol/L 5-14 Serum or plasma urea nitrogen measurement (mass/volume) 14 mg/dL 7-18 Serum or plasma creatinine measurement (mass/volume) 0.82 mg/dL 0.60-1.30 Serum or plasma urea nitrogen/creatinine mass ratio 17 NRG Serum or plasma creatinine measurement with calculation of estimated glomerular filtration rate > NRG Serum or plasma glucose measurement (mass/volume) 94 mg/dL 70-105 Serum or plasma calcium measurement (mass/volume) 9.1 mg/dL 8.5-10.1 Serum or plasma total bilirubin measurement (mass/volume) 1.1 mg/dL 0.1-1.0 Serum or plasma alkaline phosphatase measurement (enzymatic activity/volume) 63 U/L 40-136 Serum or plasma aspartate aminotransferase measurement (enzymatic activity/ volume) 31 U/L 5-34 Serum or plasma alanine aminotransferase measurement (enzymatic activity/volume ) 47 U/L 0-55 Serum or plasma protein measurement (mass/volume) 6.9 g/dL 6.4-8.2 Serum or plasma albumin measurement (mass/volume) 4.4 g/dL 3.2-4.5 Methicillin resistant Staphylococcus aureus (MRSA) screening culture - 12:41 Methicillin resistant Staphylococcus aureus (MRSA) screening culture NEG NRG Complete blood count (CBC) with automated white blood cell (WBC) differential - 05/13/18 13:50 Blood leukocytes automated count (number/volume) 6.0 10*3/uL 4.3-11.0 Blood erythrocytes automated count (number/volume) 4.26 10*6/uL 4.35-5.85 Venous blood hemoglobin measurement (mass/volume) 14.5 g/dL 13.3-17.7 Blood hematocrit (volume fraction) 40 % 40-54 Automated erythrocyte mean corpuscular volume 93 [foz_us] 80-99 Automated erythrocyte mean corpuscular hemoglobin (mass per erythrocyte) 34 pg 25-34 Automated erythrocyte mean corpuscular hemoglobin concentration measurement ( mass/volume) 36 g/dL 32-36 Automated erythrocyte distribution width ratio 12.6 % 10.0-14.5 Automated blood platelet count (count/volume) 230 10*3/uL 130-400 Automated blood platelet mean volume measurement 10.6 [foz_us] 7.4-10.4 Automated blood neutrophils/100 leukocytes 59 % 42-75 Automated blood lymphocytes/100 leukocytes 24 % 12-44 Blood monocytes/100 leukocytes 8 % 0-12 Automated blood eosinophils/100 leukocytes 9 % 0-10 Automated blood basophils/100 leukocytes 1 % 0-10 Blood neutrophils automated count (number/volume) 3.5 10*3 1.8-7.8 Blood lymphocytes automated count (number/volume) 1.4 10*3 1.0-4.0 Blood monocytes automated count (number/volume) 0.5 10*3 0.0-1.0 Automated eosinophil count 0.5 10*3/uL 0.0-0.3 Automated blood basophil count (count/volume) 0.1 10*3/uL 0.0-0.1 PT panel in platelet poor plasma by coagulation assay - 05/13/18 13:50 Prothrombin time (PT) in platelet poor plasma by coagulation assay 13.8 s 12.2-14.7 INR in platelet poor plasma or blood by coagulation assay 1.1 0.8-1.4 Activated partial thromboplastin time (aPTT) in platelet poor plasma bycoagulation assay - 05/13/18 13:50 Activated partial thromboplastin time (aPTT) in platelet poor plasma bycoagulation assay 32 s 24-35 Comprehensive metabolic panel - 05/13/18 13:50 Serum or plasma sodium measurement (moles/volume) 141 mmol/L 135-145 Serum or plasma potassium measurement (moles/volume) 4.0 mmol/L 3.6-5.0 Serum or plasma chloride measurement (moles/volume) 109 mmol/L 98-107 Carbon dioxide 21 mmol/L 21-32 Serum or plasma anion gap determination (moles/volume) 11 mmol/L 5-14 Serum or plasma urea nitrogen measurement (mass/volume) 15 mg/dL 7-18 Serum or plasma creatinine measurement (mass/volume) 0.77 mg/dL 0.60-1.30 Serum or plasma urea nitrogen/creatinine mass ratio 19 NRG Serum or plasma creatinine measurement with calculation of estimated glomerular filtration rate > NRG Serum or plasma glucose measurement (mass/volume) 102 mg/dL 70-105 Serum or plasma calcium measurement (mass/volume) 8.7 mg/dL 8.5-10.1 Serum or plasma total bilirubin measurement (mass/volume) 1.3 mg/dL 0.1-1.0 Serum or plasma alkaline phosphatase measurement (enzymatic activity/volume) 66 U/L 40-136 Serum or plasma aspartate aminotransferase measurement (enzymatic activity/ volume) 26 U/L 5-34 Serum or plasma alanine aminotransferase measurement (enzymatic activity/volume ) 34 U/L 0-55 Serum or plasma protein measurement (mass/volume) 7.1 g/dL 6.4-8.2 Serum or plasma albumin measurement (mass/volume) 4.4 g/dL 3.2-4.5 Magnesium - 05/13/18 13:50 Magnesium 2.0 mg/dL 1.8-2.4 Serum or plasma troponin i.cardiac measurement (mass/volume) - 05/13/18 13:50 Serum or plasma troponin i.cardiac measurement (mass/volume) < ng/ mL <0.30 Myoglobin, serum - 05/13/18 13:50 Myoglobin, serum 36.7 ng/mL 10.0-92.0 Lipase - 05/13/18 13:50 Lipase 34 U/L 8-78 Serum or plasma ethanol measurement (mass/volume) - 05/13/18 13:50 Serum or plasma ethanol measurement (mass/volume) < mg/dL <10 Serum or plasma lithium measurement (moles/volume) - 05/13/18 13:50 BNP level 19.4 pg/mL <100.0 Complete blood count (CBC) with automated white blood cell (WBC) differential - 08/16/18 11:32 Blood leukocytes automated count (number/volume) 6.8 10*3/uL 4.3-11.0 Blood erythrocytes automated count (number/volume) 4.31 10*6/uL 4.35-5.85 Venous blood hemoglobin measurement (mass/volume) 14.4 g/dL 13.3-17.7 Blood hematocrit (volume fraction) 41 % 40-54 Automated erythrocyte mean corpuscular volume 94 [foz_us] 80-99 Automated erythrocyte mean corpuscular hemoglobin (mass per erythrocyte) 33 pg 25-34 Automated erythrocyte mean corpuscular hemoglobin concentration measurement ( mass/volume) 36 g/dL 32-36 Automated erythrocyte distribution width ratio 12.7 % 10.0-14.5 Automated blood platelet count (count/volume) 263 10*3/uL 130-400 Automated blood platelet mean volume measurement 10.9 [foz_us] 7.4-10.4 Automated blood neutrophils/100 leukocytes 61 % 42-75 Automated blood lymphocytes/100 leukocytes 20 % 12-44 Blood monocytes/100 leukocytes 9 % 0-12 Automated blood eosinophils/100 leukocytes 10 % 0-10 Automated blood basophils/100 leukocytes 1 % 0-10 Blood neutrophils automated count (number/volume) 4.2 10*3 1.8-7.8 Blood lymphocytes automated count (number/volume) 1.4 10*3 1.0-4.0 Blood monocytes automated count (number/volume) 0.6 10*3 0.0-1.0 Automated eosinophil count 0.7 10*3/uL 0.0-0.3 Automated blood basophil count (count/volume) 0.0 10*3/uL 0.0-0.1 PT panel in platelet poor plasma by coagulation assay - 08/16/18 11:32 Prothrombin time (PT) in platelet poor plasma by coagulation assay 13.8 s 12.2-14.7 INR in platelet poor plasma or blood by coagulation assay 1.1 0.8-1.4 Activated partial thromboplastin time (aPTT) in platelet poor plasma bycoagulation assay - 08/16/18 11:32 Activated partial thromboplastin time (aPTT) in platelet poor plasma bycoagulation assay 33 s 24-35 Comprehensive metabolic panel - 08/16/18 11:32 Serum or plasma sodium measurement (moles/volume) 140 mmol/L 135-145 Serum or plasma potassium measurement (moles/volume) 3.9 mmol/L 3.6-5.0 Serum or plasma chloride measurement (moles/volume) 108 mmol/L 98-107 Carbon dioxide 23 mmol/L 21-32 Serum or plasma anion gap determination (moles/volume) 9 mmol/L 5-14 Serum or plasma urea nitrogen measurement (mass/volume) 15 mg/dL 7-18 Serum or plasma creatinine measurement (mass/volume) 0.78 mg/dL 0.60-1.30 Serum or plasma urea nitrogen/creatinine mass ratio 19 NRG Serum or plasma creatinine measurement with calculation of estimated glomerular filtration rate > NRG Serum or plasma glucose measurement (mass/volume) 111 mg/dL 70-105 Serum or plasma calcium measurement (mass/volume) 9.2 mg/dL 8.5-10.1 Serum or plasma total bilirubin measurement (mass/volume) 1.0 mg/dL 0.1-1.0 Serum or plasma alkaline phosphatase measurement (enzymatic activity/volume) 68 U/L 40-136 Serum or plasma aspartate aminotransferase measurement (enzymatic activity/ volume) 24 U/L 5-34 Serum or plasma alanine aminotransferase measurement (enzymatic activity/volume ) 27 U/L 0-55 Serum or plasma protein measurement (mass/volume) 7.2 g/dL 6.4-8.2 Serum or plasma albumin measurement (mass/volume) 4.4 g/dL 3.2-4.5 CALCIUM CORRECTED 8.9 mg/dL 8.5-10.1 Magnesium - 08/16/18 11:32 Magnesium 2.1 mg/dL 1.8-2.4 Serum or plasma troponin i.cardiac measurement (mass/volume) - 08/16/18 11:32 Serum or plasma troponin i.cardiac measurement (mass/volume) < ng/ mL <0.30 Myoglobin, serum - 08/16/18 11:32 Myoglobin, serum 40.3 ng/mL 10.0-92.0 Encounters ACCT No. Visit Date/Time Discharge Status Pt. Type Provider Facility Loc./Unit Complaint [id number] 02/12/2015 15:27:00 02/12/2015 23:59:59 CLS Outpatient DANIEL AMBRIZ MD [id number] 10/29/2013 11:47:00 10/29/2013 23:59:59 CLS Outpatient KLEBER HILARIO DO [id number] 10/25/2013 12:12:00 10/25/2013 23:59:59 CLS Outpatient HERBERT PABLO APRN [id number] 12/29/2012 12:26:00 12/29/2012 23:59:59 CLS Outpatient [id number] 09/22/2012 12:00:00 09/22/2012 23:59:59 [place] [id number] 03/20/2018 13:00:00 03/20/2018 23:59:59 CLS Outpatient BALBINA MOSES APRN [facility] [id number] 2018 08:46:00 2018 23:59:59 CLS Outpatient Anne Marie VIRK MD [facility] [id number] 06/11/2018 09:24:00 06/11/2018 23:59:59 CLS Outpatient Anne Marie VIRK MD [facility] CR STENT [id number] 05/13/2018 13:43:00 05/13/2018 15:23:00 DIS Emergency SIMONE SANDERS MD [facility] ER CHEST PAIN [id number] 02/26/2018 11:55:00 02/26/2018 16:45:00 DIS Outpatient Anne Marie VIRK MD [facility] CATH PROLONGED CHEST PAIN [id number] 02/08/2018 08:10:00 02/09/2018 13:06:00 DIS Outpatient Anne Marie VIRK MD [facility] CATH CHEST PAIN, EKG ABNORMAL [id number] 02/01/2018 07:32:00 02/01/2018 23:59:59 CLS Outpatient Anne Marie VIRK MD [facility] CARD R07.9 [id number] 01/19/2018 12:55:00 01/19/2018 23:59:59 CLS Outpatient Anne Marie VIRK MD [facility] CARD R07.9 [id number] 12/22/2017 16:29:00 12/22/2017 21:42:00 DIS Emergency SIMONE SANDERS MD [facility] ER CP/L ARM NUMBNESS [id number] 09/25/2017 08:23:00 09/25/2017 11:30:00 DIS Outpatient GRAYSON LANGE MD [facility] ENDO RECTAL BLEEDING [id number] 09/21/2017 05:37:00 09/21/2017 13:51:00 DIS Outpatient GRAYSON LANGE MD [facility] PREOP COLONOSCOPY [id number] 08/28/2017 19:16:00 08/28/2017 21:23:00 DIS Emergency SIMONE SANDERS MD [facility] ER LOW BACK PAIN,BLOOD IN STOOL [id number] 01/03/2017 09:41:00 01/03/2017 23:59:59 CLS Outpatient JESSICA DAVIES, DAMARI Doss [facility] RAD LOW BACK PAIN,PAIN IN THORACIC SPINE [id number] 06/04/2016 20:25:00 06/04/2016 20:59:00 DIS Emergency BALBINA ATKINS DO [facility] ER CHEMICALS IN R EYE [id number] 08/16/2018 11:56:00 Document Registration [id number] 05/19/2012 11:24:00 Document Registration [id number] 08/31/2010 00:34:00 Document Registration [id number] 12/12/2008 08:50:00 Document Registration
== END 2018-08-16 13:35 | disposition home or self-care (01) ==
LOC: EDUNIT# 11:25 → ER 11:26
DX: R07.81 Pleurodynia (principal); I25.118 Atherosclerotic heart disease of native coronary artery with other forms of angina pectoris; J45.909 Unspecified asthma, uncomplicated; I25.2 Old myocardial infarction; I10 Essential (primary) hypertension; Z87.19 Personal history of other diseases of the digestive system; Z79.82 Long term (current) use of aspirin; Z88.0 Allergy status to penicillin; Z88.2 Allergy status to sulfonamides; Z88.8 Allergy status to other drugs, medicaments and biological substances
CPT/HCPCS: 36415; 71045; 80053; 83735; 83874; 84484; 85025; 85610; 85730; 93005; 93041

== ENCOUNTER 2018-08-23 08:50 | Outpatient (RCR) | payer OTHER ==
[~2018-08-23 08:50] MED LIST changes: +RANO500T3 PO
== END 2018-11-21 | disposition home or self-care (01) ==
LOC: CARD 08:50
PROVIDERS: ATTEND Internal Medicine Interventional Cardiology
DX: I47.9 Paroxysmal tachycardia, unspecified (principal); R07.9 Chest pain, unspecified; I25.10 Atherosclerotic heart disease of native coronary artery without angina pectoris; I10 Essential (primary) hypertension; E78.5 Hyperlipidemia, unspecified; R00.1 Bradycardia, unspecified; Z72.0 Tobacco use
CPT/HCPCS: 93225; 93226

== ENCOUNTER → 2018-10-25 | Outpatient (CLI) | payer OTHER ==
[~2018-10-25] MED LIST changes: +REGADENOSON 0.4 MG/5 ML SYR (LEXISCAN) IV ONE
[2018-10-25] MEDS: CATHETER FLUSH 10 ML SYR IV PRN ×2 (09:18→09:51)
[2018-10-25 09:49] VITALS: BP 125/80
--- NOTE | 2018-10-25 18:00 | Cardiology Stress Test Report ---
Stress Test Report Type of NM Stress Test: Test Type: LEXISCAN 0.4MG/5ML Date of Procedure/Referring: Date of Procedure: Oct 25, 2018 PCP Anne Marie Mckenzie MD Admitting Physician Mirta Ferreira DO Indications: Chest pain Baseline Heart Rate: 51 Baseline Blood Pressure: Blood Pressure Systolic: 125 Blood Pressure Diastolic: 80 Baseline EKG: Baseline EKG: sinus rhythm Summary & Conclusion: Summary: The patient was brought to the stress lab after informed consent was taken. Stress test was performed according to the Lexiscan protocol. 0.4 mg of IV Lexiscan was given. Low-grade exercise was performed. Baseline EKG showed sinus rhythm at 51 BPM. Initial blood pressure was 125/80 mmHg. Maximum heart rate was 105 bpm and blood pressure 155/90 mmHg. Patient did not have any chest pain, arrhythmias or ST segment changes during the stress test. 9.63 mCi of Myoview were given for rest imaging and 28.6 mCi of Myoview given for stress imaging. Transient ischemic dilatation score 1.13, EF 60 percent. Normal wall motion. Normal myocardial perfusion imaging during rest and stress. Conclusion: Pharmacological stress test was negative for ischemia. Normal LV function with no wall motion abnormalities. Normal myocardial perfusion imaging during rest and stress. Anne Marie MCKENZIE MD Oct 25, 2018 6:00 pm
== END ==
LOC: CARD 09:03
PROVIDERS: ATTEND Internal Medicine Interventional Cardiology
DX: I47.9 Paroxysmal tachycardia, unspecified (principal); R07.9 Chest pain, unspecified; I25.10 Atherosclerotic heart disease of native coronary artery without angina pectoris; I10 Essential (primary) hypertension; E78.5 Hyperlipidemia, unspecified; R00.1 Bradycardia, unspecified; Z72.0 Tobacco use
CPT/HCPCS: 78452; 93017

== ENCOUNTER → 2018-11-26 | Outpatient (CLI) | payer OTHER ==
[~2018-11-26] MED LIST changes: -REGADENOSON 0.4 MG/5 ML SYR (LEXISCAN) IV ONE
[2018-11-26 10:05] LABS: ALANINE AMINOTRANSFERASE 24 U/L (0-55); ALBUMIN 4.3 GM/DL (3.2-4.5); ALKALINE PHOSPHATASE 77 U/L (40-136); BILIRUBIN,TOTAL 1.1 MG/DL (0.1-1.0); BUN/CREATININE RATIO 15; CALCIUM 9.2 MG/DL (8.5-10.1); CARBON DIOXIDE 26 MMOL/L (21-32); CHLORIDE 107 MMOL/L (98-107); CHOLESTEROL 161 MG/DL (< 200); CREATININE SERUM 0.86 MG/DL (0.60-1.30); GFR ESTIMATED > 60; GLUCOSE 96 MG/DL (70-105); HDL CHOLESTEROL 65 MG/DL (40-60); POTASSIUM 4.7 MMOL/L (3.6-5.0); SODIUM 140 MMOL/L (135-145); TOTAL PROTEIN 7.6 GM/DL (6.4-8.2); TRIGLYCERIDES 52 MG/DL (<150); VLDL CHOLESTEROL 10 MG/DL (5-40)
== END ==
LOC: LAB 09:35
PROVIDERS: ATTEND Internal Medicine Interventional Cardiology
DX: I25.10 Atherosclerotic heart disease of native coronary artery without angina pectoris (principal); E78.5 Hyperlipidemia, unspecified
CPT/HCPCS: 36415; 80053; 80061

== ENCOUNTER → 2019-04-29 | Outpatient (CLI) | payer SELFPAY ==
--- NOTE | 2019-04-29 16:34 | Diagnostic Imaging Report ---
PROCEDURE: MRI lumbar spine. TECHNIQUE: Multiplanar, multisequence MRI of the lumbar spine was performed without contrast. INDICATION: Low back pain. FINDINGS: The previous MRI lumbar spine exam performed on 12/12/2008 noted postsurgical changes consistent with a posterior fusion at the thoracolumbar junction. On the T2 sagittal images of this exam, there are bilateral pedicle screws in place at T11, T12, and L1. The orthopedic hardware where visualized seems to be in good position. The compression deformity of the superior endplate of T12 seen previously is again evident and essentially no different. As seen on the prior exam, there is mild retropulsion of the posterior superior endplate of the compressed vertebral body of T12. This does result in narrowing of the thecal sac to 11.6 mm. There is no significant neuroforaminal narrowing at this level. The previous exam failed to show any evidence for spinal stenosis or nerve root encroachment of the lumbar spine. There was a mild disc bulge centrally at L5-S1, but there is no evidence for spinal stenosis or nerve root encroachment at this level. On this exam, the disc bulge centrally at L5-S1 is again evident and no different. However in the interval since the prior study, a prominent lateral disc protrusion to the right at the L4-L5 level has developed. The disc material measures approximately 6.6 x 26.3 mm in maximum AP and longitudinal dimensions. I am not certain if the disc is originating from the L3-L4 or L4-L5 disc space. At any rate, most likely, there is compression of the exiting right nerve root at this level. There is also mild flattening of the right ventral aspect of the thecal sac. The remainder of the lumbar spine is unremarkable for spinal stenosis or nerve root encroachment. There is no abnormal signal arising from the cord or the vertebral bodies to indicate an acute abnormality. The prior exam did note a roughly 2.3 x 3 cm cyst along the inferior pole of the right kidney. On this study, there is now a much larger mass in this area. This finding is not visualized in its entirety but measures approximately 4.3 x 5.3 cm. There also appears to be a fluid-fluid level within this finding. This may represent a cyst which has been complicated by infection and/or hemorrhage. The possibility that this is neoplastic in nature would be less likely but should still be considered. I would recommend that either ultrasound or preferably CT be performed for further study. IMPRESSION: 1. In the interval since the prior study, a sizable lateral disc protrusion on the right at L4-L5 has developed. There is only mild compression of the right ventral aspect of the thecal sac, but most likely there is encroachment of the exiting right nerve root at this level. 2. The remainder of the lumbar spine is unremarkable for spinal stenosis or nerve root encroachment. 3. The postsurgical changes at the thoracolumbar junction seen previously appear stable. 4. There is a sizable 4.3 x 5.3 cm rounded area along the inferior pole of the right kidney. Considerations and recommendations as above. Dictated by: Dictated on workstation # [id number]
== END ==
LOC: RAD 12:38
PROVIDERS: ATTEND Nurse Practitioner Community Health
DX: M51.17 Intervertebral disc disorders with radiculopathy, lumbosacral region (principal); N28.89 Other specified disorders of kidney and ureter; M43.8X4 Other specified deforming dorsopathies, thoracic region; Z98.1 Arthrodesis status
CPT/HCPCS: 72148

== ENCOUNTER → 2019-05-24 | Outpatient (CLI) | payer SELFPAY ==
--- NOTE | 2019-05-24 11:56 | Diagnostic Imaging Report ---
PROCEDURE: CT abdomen without contrast. TECHNIQUE: Multiple contiguous axial images were obtained through the abdomen without the use of intravenous contrast. Auto Exposure Controls were utilized during the CT exam to meet ALARA standards for radiation dose reduction. INDICATION: Renal cyst. FINDINGS: Comparison is to prior lumbar spine MRI dated 04/29/2019. Limited views of the lower thorax are normal. Liver is normal without focal lesion. Gallbladder is decompressed. No biliary ductal dilation. Pancreas, spleen, and adrenal glands are normal. The abnormality on the MRI does represent a simple cyst in the inferior pole of the right kidney measuring up to 6.8 cm. There are no suspicious features to this cyst. No hydronephrosis. The left kidney is normal. No dilated loops of bowel. No abdominal lymphadenopathy. Abdominal aorta is normal in caliber. No free fluid or air is seen. A lytic focus in the left ilium may represent prior bone marrow biopsy site. No suspicious osseous lesions are seen. There has been posterior fusion of the thoracolumbar spine. IMPRESSION: 1. The abnormality on the MRI corresponds to a simple cyst in the right kidney, a benign finding. Dictated by: Dictated on workstation # [id number]
== END ==
LOC: RAD 11:20
PROVIDERS: ATTEND Nurse Practitioner Community Health
DX: N28.1 Cyst of kidney, acquired (principal)
CPT/HCPCS: 74150

== ENCOUNTER 2021-03-24 16:43 | Emergency (ER) | payer SELFPAY ==
[~2021-03-24] VITALS: Ht 165.1 cm; Wt 83.5 kg
[~2021-03-24 16:43] MED LIST changes: +ASPI-1238 PO; -ASPI-983 PO; -LISI10TA2 PO; +LISI10TA25 PO; -METO-387 PO; +MTP25TSR PO
--- NOTE | 2021-03-24 16:56 | ED Chest Pain ---
General Stated Complaint: CHEST PAIN / NUMBNESS / BLOOD WORK Source: patient Exam Limitations: no limitations History of Present Illness Date Seen by Provider: March 24, 2021 Time Seen by Provider: 16:53 Initial Comments To ER with reports of left-sided chest pain with numbness down the left arm. This is been ongoing for about 3 days and it is brought about by activity. He has a history of coronary artery disease with a stent placed in the proximal LAD in 2018. He is compliant with his aspirin. He was seen at Dr. Paredes's office today to establish care and complained of this pain and was referred to the emergency room. He states this feels like a pulled muscle. It was really bothering him when he was loading some boxes at work. Timing/Duration: changing over time Severity/Quality: moderate Location: other Radiation: no radiation Prior CP/Workup: no prior chest pain ASA po TOBACCO WETTER: No NTG SL TOBACCO WETTER: No Allergies and Home Medications Allergies Coded Allergies: amoxicillin (Verified Allergy, Mild, HIVES, 02/26/18) Sulfa (Sulfonamide Antibiotics) (Verified Allergy, Unknown, 06/04/16) vancomycin (Unverified Allergy, Unknown, 06/04/16) venom-wasp (Unverified Allergy, Unknown, 06/04/16) Home Medications Aspirin 81 Mg Tablet.dr, 81 MG PO DAILY, (Reported) Atorvastatin Calcium 80 Mg Tablet, 80 MG PO HS Prescribed by: YVON GARCIA on 02/09/18 1232 Lisinopril 10 Mg Tablet, 10 MG PO DAILY@0900 Prescribed by: YVON GARCIA on 02/09/18 1232 Metoprolol Succinate 25 Mg Tab.er.24h, 25 MG PO DAILY, (Reported) Ranolazine 500 Mg Tab.er.12h, 500 MG PO BID Prescribed by: LIZET IZAGUIRRE on 08/16/18 1308 Ticagrelor 90 Mg Tablet, 90 MG PO BID Prescribed by: YVON GARCIA on 02/09/18 1232 Patient Home Medication List Home Medication List Reviewed: Yes Review of Systems Review of Systems Constitutional: see HPI EENTM: No Symptoms Reported Respiratory: No Symptoms Reported Cardiovascular: See HPI, Chest Pain Gastrointestinal: See HPI Musculoskeletal: no symptoms reported Skin: no symptoms reported Psychiatric/Neurological: No Symptoms Reported Endocrine: No Symptoms Reported Hematologic/Lymphatic: No Symptoms Reported Past Tzjjdfc-Vgtzns-Xqgrhl Hx Patient Social History Alcohol Beverage of Choice: Beer Type Used: Smokeless Tobacco 2nd Hand Smoke Exposure: No Recent Hopitalizations: No Seasonal Allergies Seasonal Allergies: No Past Medical History Surgeries: Yes (back, left hand recontruction, COLONOSCOPY) Ear Surgery, Orthopedic Respiratory: Yes Asthma, Chronic Bronchitis Cardiac: Yes Heart Attack, Hypertension Neurological: No Reproductive Disorders: No Genitourinary: No Gastrointestinal: No (rectal bleeding) Hiatal Hernia Musculoskeletal: Yes Chronic Back Pain Endocrine: No HEENT: No Cancer: No Psychosocial: No Integumentary: No Blood Disorders: No Family Medical History Cancer, Diabetes, Hypertension Physical Exam Vital Signs Vital Signs - First Documented Capillary Refill : Height, Weight, BMI Height: 5'5.00" Weight: 164lbs. 0.0oz. 74.393426kn; 29.0 BMI Method:Stated General Appearance: No Apparent Distress, WD/WN Neck: Full Range of Motion, Normal Inspection Respiratory: No Accessory Muscle Use, No Respiratory Distress Cardiovascular: Regular Rate, Rhythm, Normal Peripheral Pulses Gastrointestinal: Normal Bowel Sounds, Non Tender, Soft Extremity: Normal Capillary Refill, Normal Inspection Neurologic/Psychiatric: Alert, Oriented x3 Skin: Normal Color, Warm/Dry Progress/Results/Core Measures Results/Orders Lab Results Laboratory Tests Test 03/24/21 17:00 03/24/21 18:55 Range/Units White Blood Count 7.7 4.3-11.0 10^3/uL Red Blood Count 4.61 4.30-5.52 10^6/uL Hemoglobin 15.0 13.3-17.7 g/dL Hematocrit 44 40-54 % Mean Corpuscular Volume 95 80-99 fL Mean Corpuscular Hemoglobin 33 25-34 pg Mean Corpuscular Hemoglobin Concent 34 32-36 g/dL Red Cell Distribution Width 12.3 10.0-14.5 % Platelet Count 254 130-400 10^3/uL Mean Platelet Volume 10.1 9.0-12.2 fL Immature Granulocyte % (Auto) 1 % Neutrophils (%) (Auto) 58 42-75 % Lymphocytes (%) (Auto) 27 12-44 % Monocytes (%) (Auto) 10 0-12 % Eosinophils (%) (Auto) 4 0-10 % Basophils (%) (Auto) 1 0-10 % Neutrophils # (Auto) 4.5 1.8-7.8 10^3/uL Lymphocytes # (Auto) 2.1 1.0-4.0 10^3/uL Monocytes # (Auto) 0.7 0.0-1.0 10^3/uL Eosinophils # (Auto) 0.3 0.0-0.3 10^3/uL Basophils # (Auto) 0.1 0.0-0.1 10^3/uL Immature Granulocyte # (Auto) 0.1 0.0-0.1 10^3/uL Prothrombin Time 13.6 12.2-14.7 SEC INR Comment 1.0 0.8-1.4 Activated Partial Thromboplast Time 32 24-35 SEC Sodium Level 140 135-145 MMOL/L Potassium Level 4.2 3.6-5.0 MMOL/L Chloride Level 103 98-107 MMOL/L Carbon Dioxide Level 26 21-32 MMOL/L Anion Gap 11 5-14 MMOL/L Blood Urea Nitrogen 14 7-18 MG/DL Creatinine 0.85 0.60-1.30 MG/DL Estimat Glomerular Filtration Rate > 60 BUN/Creatinine Ratio 16 Glucose Level 93 70-105 MG/DL Calcium Level 8.9 8.5-10.1 MG/DL Corrected Calcium 8.5-10.1 MG/DL Magnesium Level 1.9 1.6-2.4 MG/DL Total Bilirubin 1.2 H 0.1-1.0 MG/DL Aspartate Amino Transf (AST/SGOT) 31 5-34 U/L Alanine Aminotransferase (ALT/SGPT) 35 0-55 U/L Alkaline Phosphatase 102 40-136 U/L Myoglobin 62.1 10.0-92.0 NG/ML Troponin I < 0.028 < 0.028 <0.028 NG/ML B-Type Natriuretic Peptide 10.3 <100.0 PG/ML Total Protein 7.9 6.4-8.2 GM/DL Albumin 4.6 H 3.2-4.5 GM/DL My Orders Orders - ANEESH COBURN APRN Cbc With Automated Diff (03/24/21 16:46) Magnesium (03/24/21 16:46) Chest 1 View, Ap/Pa Only (03/24/21 16:46) Ekg Tracing (03/24/21 16:46) Comprehensive Metabolic Panel (03/24/21 16:46) Myoglobin Serum (03/24/21 16:46) Protime With Inr (03/24/21 16:46) Partial Thromboplastin Time (03/24/21 16:46) O2 (03/24/21 16:46) Monitor-Rhythm Ecg Trace Only (03/24/21 16:46) Lipid Panel (03/25/21 06:00) Ed Iv/Invasive Line Start (03/24/21 16:46) BNP (03/24/21 16:46) Troponin I (03/24/21 16:46) Aspirin Chewable Tablet (Baby Aspirin Ch (03/24/21 17:00) Lorazepam Injection (Ativan Injection) (03/24/21 17:00) Troponin I (03/24/21 18:52) Medications Given in ED Current Medications Medications Dose Ordered Sig/Tia Route Start Time Stop Time Status Last Admin Dose Admin Aspirin 324 mg ONCE ONCE PO 03/24/21 17:00 03/24/21 17:01 DC 03/24/21 17:11 324 MG Vital Signs/I&O 03/24/21 03/24/21 16:47 16:47 Temp 36.8 Pulse 63 Resp 16 B/P (MAP) 130/100 (110) O2 Delivery Room Air Room Air Departure Communication (Admissions) NAME: [facility] REC#: [id number] PT STATUS: REG ER : 1965 PHYSICIAN: ANEESH COBURN APRN ADMIT DATE: 03/24/21/ER Draft Date of Exam:03/24/21 CHEST 1 VIEW, AP/PA ONLY INDICATION: Chest pain. TECHNIQUE: Frontal chest obtained at 05:13 p.m. and compared to 08/16/2018. FINDINGS: Heart and mediastinal silhouette are normal in appearance. The lungs appear clear. There is no pneumothorax or pleural fluid. IMPRESSION: Negative chest. Dictated on workstation # [id number] Dict: 03/24/211722 Trans: 03/24/211726 [id number] [id number] Interpreted by: JOSE F LAWS MD Electronically signed by: Impression Primary Impression: Chest pain Disposition: 01 HOME, SELF-CARE Condition: Stable Departure-Patient Inst. Decision time for Depature: 18:51 Referrals: KLEBER HILARIO DO (PCP) Primary Care Physician BALBINA MOSES (Family) Primary Care Physician Patient Instructions: Chest Pain Add. Discharge Instructions: 1. Follow-up with Dr. Paredes next week. Return to ER for any concerns. Copy Copies To 1: PARISH FERREIRA MD FACP FACC CCDS ANEESH COBURN APRN March 24, 2021 16:56
[2021-03-24] MEDS ORDERED: LORazepam INJ 2 MG/ML (ATIVAN) VIAL IVP PRN (17:00)
[2021-03-24] MEDS ORDERED: ASPIRIN 81 MG CHEW (CHILDREN'S ASA) PO ONE (17:00)
[2021-03-24 17:08] LABS: BASOPHILS # (AUTO) 0.1 10^3/uL (0.0-0.1); BASOPHILS % (AUTO) 1 % (0-10); EOSINOPHILS # (AUTO) 0.3 10^3/uL (0.0-0.3); EOSINOPHILS % (AUTO) 4 % (0-10); HEMATOCRIT 44 % (40-54); LYMPHOCYTES # (AUTO) 2.1 10^3/uL (1.0-4.0); LYMPHOCYTES % (AUTO) 27 % (12-44); MEAN CORPUSCULAR HEMOGLOBIN 33 pg (25-34); MEAN CORPUSCULAR HGB CONC 34 g/dL (32-36); MEAN CORPUSCULAR VOLUME 95 fL (80-99); MEAN PLATELET VOLUME 10.1 fL (9.0-12.2); MONOCYTES # (AUTO) 0.7 10^3/uL (0.0-1.0); MONOCYTES % (AUTO) 10 % (0-12); NEUTROPHILS # (AUTO) 4.5 10^3/uL (1.8-7.8); NEUTROPHILS % (AUTO) 58 % (42-75); PLATELET COUNT 254 10^3/uL (130-400); WHITE BLOOD COUNT 7.7 10^3/uL (4.3-11.0)
[2021-03-24 17:18] LABS: ALBUMIN 4.6 GM/DL (3.2-4.5); PROTHROMBIN TIME PATIENT 13.6 SEC (12.2-14.7)
[2021-03-24 17:19] LABS: CHLORIDE 103 MMOL/L (98-107); POTASSIUM 4.2 MMOL/L (3.6-5.0); SODIUM 140 MMOL/L (135-145)
[2021-03-24 17:20] LABS: CALCIUM 8.9 MG/DL (8.5-10.1)
[2021-03-24 17:21] LABS: GLUCOSE 93 MG/DL (70-105); TOTAL PROTEIN 7.9 GM/DL (6.4-8.2)
[2021-03-24 17:23] LABS: BILIRUBIN,TOTAL 1.2 MG/DL (0.1-1.0); CARBON DIOXIDE 26 MMOL/L (21-32)
[2021-03-24 17:24] LABS: ALKALINE PHOSPHATASE 102 U/L (40-136)
[2021-03-24 17:25] LABS: CREATININE SERUM 0.85 MG/DL (0.60-1.30); GFR ESTIMATED > 60
[2021-03-24 17:26] LABS: BUN/CREATININE RATIO 16
[2021-03-24 17:27] LABS: MAGNESIUM 1.9 MG/DL (1.6-2.4)
--- NOTE | 2021-03-24 17:27 | Diagnostic Imaging Report ---
INDICATION: Chest pain. TECHNIQUE: Frontal chest obtained at 05:13 p.m. and compared to 08/16/2018. FINDINGS: Heart and mediastinal silhouette are normal in appearance. The lungs appear clear. There is no pneumothorax or pleural fluid. IMPRESSION: Negative chest. Dictated by: Dictated on workstation # [id number]
[2021-03-24 17:28] LABS: ALANINE AMINOTRANSFERASE 35 U/L (0-55)
[2021-03-24 19:36] VITALS: BP 111/74
== END 2021-03-24 19:36 | disposition home or self-care (01) ==
LOC: EDUNIT# 16:43 → ER 16:46
DX: R07.9 Chest pain, unspecified (principal); I25.2 Old myocardial infarction; I10 Essential (primary) hypertension; J45.909 Unspecified asthma, uncomplicated; Z88.1 Allergy status to other antibiotic agents; Z88.2 Allergy status to sulfonamides; Z88.8 Allergy status to other drugs, medicaments and biological substances; Z79.82 Long term (current) use of aspirin; Z79.899 Other long term (current) drug therapy
CPT/HCPCS: 36415; 71045; 80053; 83735; 83874; 83880; 84484; 85025; 85610; 85730; 93005; 93041